=== PATIENT | female | born 1960 | race African-American/Black ===

== ENCOUNTER 2020-07-03 09:56 | Outpatient (REF) | payer OTHER, SELFPAY ==
--- NOTE | 2020-07-03 | MM_ITS ---
EXAMINATION: MM SCREENING DIGITAL BREAST TOMOSYNTHESIS, BILATERAL CLINICAL INFORMATION: Screening. Asymptomatic. The lifetime risk of breast cancer based on the Tyrer-Cuzick Model is 3%. COMPARISON: Mammography: 06/28/2019, 06/22/2018, 05/22/2017 TECHNIQUE: Digital breast tomosynthesis is performed in both the craniocaudal and mediolateral oblique views along with computer-aided detection (CAD). Synthesized 2D images are generated from the tomosynthesis. FINDINGS: The breasts are heterogeneously dense, which may obscure small masses (ACR BI-RADS breast composition Category c). There are no significant masses, abnormal calcifications, or other abnormalities. There are stable nodules bilateral posterior outer breast on CC view likely intramammary nodes, similar to prior studies. MM/MM tomosynthesis screening BI IMPRESSION: No mammographic evidence of malignancy. ASSESSMENT: BI-RADS 2: Benign RECOMMENDATION: Routine annual mammography screening. This patient's information was entered into a reminder system with a target due date for their next mammogram.
== END 2020-07-03 09:57 | disposition home or self-care (01) ==
LOC: HO.MAMMO 09:56
PROVIDERS: PCP Internal Medicine; Visit Provider Internal Medicine
DX: Z12.31 Encounter for screening mammogram for malignant neoplasm of breast (principal)
CPT/HCPCS: 77063; 77067

== ENCOUNTER 2020-08-23 07:56 | Outpatient (REF) | payer OTHER, SELFPAY ==
[2020-08-23 11:43] LABS: Anion Gap 14 (12-20); Blood Urea Nitrogen 19 mg/dL (9-16); Calcium 9.4 mg/dL (8.4-10.2); Carbon Dioxide 28 mmol/L (22-29); Chloride 102 mmol/L (96-108); Cholesterol 190 mg/dL; Estimated Glomerular Filt Rate > 60; Glucose Fasting 90 mg/dL (60-99); HDL Cholesterol 73 mg/dL; LDL Cholesterol Calculated 105 mg/dl; Potassium 3.4 mmol/L (3.3-5.1); Sodium 141 mmol/L (135-145); Triglycerides 64 mg/dL
== END 2020-08-23 07:57 | disposition home or self-care (01) ==
LOC: HO.HMGCLDS 07:56
PROVIDERS: PCP Internal Medicine; Visit Provider Internal Medicine
DX: I10 Essential (primary) hypertension (principal); K21.9 Gastro-esophageal reflux disease without esophagitis; E78.9 Disorder of lipoprotein metabolism, unspecified; Z72.0 Tobacco use
CPT/HCPCS: 36415; 80048; 80061

== ENCOUNTER 2020-10-03 13:43 | Outpatient (REF) | payer OTHER, SELFPAY ==
[2020-10-03 15:18] LABS: Blood Urea Nitrogen 10 mg/dL (9-16); Estimated Glomerular Filt Rate > 60
== END 2020-10-03 13:44 | disposition home or self-care (01) ==
LOC: HO.HMGCLDS 13:43
PROVIDERS: PCP Internal Medicine; Visit Provider Urology
DX: C64.2 Malignant neoplasm of left kidney, except renal pelvis (principal)
CPT/HCPCS: 36415; 82565; 84520

== ENCOUNTER → 2020-11-03 08:51 | Outpatient (BNVA) | payer OTHER, SELFPAY | PROVIDERS: Visit Provider Urology ==

== ENCOUNTER 2021-03-31 08:17 | Outpatient (REF) | payer OTHER, SELFPAY ==
[2021-03-31 11:08] LABS: MANUAL DIFF FLAG NO
[2021-03-31 11:23] LABS: Basophils Percent Auto 0.7 % (0-2); Eosinophils Absolute Auto 0.5 X10*3/uL (0.0-0.4); Eosinophils Percent Auto 11.7 % (0-4); Hematocrit 38.6 % (37-47); Hemoglobin 13.1 g/dl (12.0-16.0); Imm Gran Abs Auto 0.01 X10*3/uL (0.00-0.03); Imm Gran Pct Auto 0.2 % (0.0-0.4); Mean Corpuscular HGB Conc 33.9 g/dl (31.0-35.0); Mean Corpuscular Hemoglobin 32.8 pg (27.0-33.0); Mean Corpuscular Volume 96.5 fL (80-98); Mean Platelet Volume 9.5 fL (9.4-12.3); Monocytes Absolute Auto 0.5 X10*3/uL (0.1-1.2); Monocytes Percent Auto 11.3 % (2-11); Neutrophils Absolute Auto 1.3 X10*3/uL (2.0-8.3); Neutrophils Percent Auto 30.1 % (45-73); Platelet Count 325 X10*3/uL (160-400); Red Cell Distribution Width 12.2 % (11.0-16.0); White Blood Count 4.3 X10*3/uL (4.8-10.8)
[2021-03-31 11:24] LABS: Estimated Average Glucose 114 mg/dL; Hemoglobin A1c % 5.6 %
[2021-03-31 11:49] LABS: Alanine Aminotransferase 22 U/L (0-31); Albumin Level 3.9 g/dL (3.5-5.0); Alkaline Phosphatase 77 U/L (39-117); Anion Gap 10 (12-20); Aspartate Amino Transferase 26 U/L (5-31); Bilirubin Total 0.3 mg/dL (0.0-1.0); Blood Urea Nitrogen 10 mg/dL (9-16); Calcium 9.7 mg/dL (8.4-10.2); Carbon Dioxide 31 mmol/L (22-29); Chloride 100 mmol/L (96-108); Estimated Glomerular Filt Rate > 60; Glucose Random 89 mg/dL (60-115); Potassium 3.4 mmol/L (3.3-5.1); Sodium 138 mmol/L (135-145); Total Protein 6.6 g/dL (6.5-8.0)
== END 2021-03-31 08:18 | disposition home or self-care (01) ==
LOC: HO.HMGCLDS 08:17
PROVIDERS: PCP Internal Medicine; Visit Provider Internal Medicine
DX: E78.9 Disorder of lipoprotein metabolism, unspecified (principal); I10 Essential (primary) hypertension; K21.9 Gastro-esophageal reflux disease without esophagitis; G47.9 Sleep disorder, unspecified; Z72.0 Tobacco use
CPT/HCPCS: 36415; 80053; 83036; 85025

== ENCOUNTER → 2021-05-04 10:29 | Outpatient (BNVA) | payer OTHER, SELFPAY | PROVIDERS: Visit Provider Urology ==

== ENCOUNTER 2021-07-09 08:45 | Outpatient (REF) | payer OTHER, SELFPAY ==
--- NOTE | ~2021-07-09 | MM_ITS ---
EXAMINATION: MM SCREENING DIGITAL BREAST TOMOSYNTHESIS, BILATERAL CLINICAL INFORMATION: Screening. Asymptomatic. The lifetime risk of breast cancer based on the Tyrer-Cuzick Model is 3%. COMPARISON: Mammography: 07/03/2020, 06/28/2019, 06/22/2018, 05/22/2017 TECHNIQUE: Digital breast tomosynthesis is performed in both the craniocaudal and mediolateral oblique views along with computer-aided detection (CAD). Synthesized 2D images are generated from the tomosynthesis. Additional exaggerated left CC view is provided. FINDINGS: The breasts are heterogeneously dense, which may obscure small masses (ACR BI-RADS breast composition Category c). There are no significant masses, abnormal calcifications, or other abnormalities. Breast tissue composition borders on extremely dense. Parenchymal pattern is similar to prior studies. There is a stable nodule likely intramammary node posterior upper outer left breast. Skin contours are smooth. MM/MM tomosynthesis screening BI IMPRESSION: No mammographic evidence of malignancy. ASSESSMENT: BI-RADS 2: Benign RECOMMENDATION: Routine annual mammography screening. This patient's information was entered into a reminder system with a target due date for their next mammogram.
== END 2021-07-09 08:46 | disposition home or self-care (01) ==
LOC: HO.MAMMO 08:45
PROVIDERS: Visit Provider Internal Medicine
DX: Z12.31 Encounter for screening mammogram for malignant neoplasm of breast (principal)
CPT/HCPCS: 77063; 77067

== ENCOUNTER 2021-08-27 09:51 | Outpatient (REF) | payer OTHER, SELFPAY ==
--- NOTE | ~2021-08-27 | US_ITS ---
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 COMPARISON: CT abdomen pelvis 11/18/2016. TECHNIQUE: Routine grayscale imaging of both kidneys was performed. FINDINGS: RIGHT KIDNEY: 10.3 x 3.9 x 6.2 cm (SAG x AP x TRV). The kidney is normal in size, contour, and echogenicity. Renal cortical thickness is normal. No calculi or focal parenchymal lesions. No hydronephrosis. LEFT KIDNEY: 9.1 x 4.0 x 5.7 cm (SAG x AP x TRV). The kidney is normal in size, contour, and echogenicity. Renal cortical thickness is normal. No calculi or focal parenchymal lesions. No hydronephrosis. There is a heterogeneous mass in the lower pole left kidney measuring 2.3 x 1.4 x 1.2 cm. There is a second hypoechoic lesion midpole cortex indenting the pelvicalyceal system. Incidental finding of the right hepatic cyst measuring 2.2 x 1.9 x 1.9 cm. US/US renal BI IMPRESSION: Heterogeneous mass in the lower pole of left kidney is likely post ablation changes for RCC tumor. There is a hypoechoic lesion medially in the [id number] pole with mass effect on the lower pole calyx. This appears to be separate from the lesion in the lower pole. Further evaluation with CT or MRI is recommended. The right kidney is unremarkable.
== END 2021-08-27 09:52 | disposition home or self-care (01) ==
LOC: HO.HMGCX 09:51
PROVIDERS: Visit Provider Urology
DX: C64.9 Malignant neoplasm of unspecified kidney, except renal pelvis (principal)
CPT/HCPCS: 76775

== ENCOUNTER → 2021-09-17 12:35 | Outpatient (BNVA) | payer OTHER, SELFPAY | PROVIDERS: PCP Internal Medicine; Visit Provider Physician Assistant | DX: Z12.11 Encounter for screening for malignant neoplasm of colon (principal); K21.9 Gastro-esophageal reflux disease without esophagitis | CPT/HCPCS: 99202 ==

== ENCOUNTER → 2021-11-08 11:11 | Outpatient (BNVA) | payer OTHER, SELFPAY | PROVIDERS: PCP Internal Medicine; Visit Provider Urology | DX: C64.9 Malignant neoplasm of unspecified kidney, except renal pelvis (principal) | CPT/HCPCS: 99212 ==

== ENCOUNTER 2022-01-14 11:54 | Outpatient (REF) | payer OTHER, SELFPAY ==
[2022-01-14 13:34] LABS: MANUAL DIFF FLAG NO
[2022-01-14 13:42] LABS: Basophils Absolute Auto 0.1 X10*3/uL (0.0-0.2); Basophils Percent Auto 1.2 % (0-2); Eosinophils Absolute Auto 0.4 X10*3/uL (0.0-0.4); Eosinophils Percent Auto 8.5 % (0-4); Hematocrit 36.6 % (37.0-47.0); Hemoglobin 12.7 g/dl (12.0-16.0); Imm Gran Abs Auto 0.02 X10*3/uL (0.00-0.03); Imm Gran Pct Auto 0.4 % (0.0-0.4); Lymphocytes Absolute Auto 2.1 X10*3/uL (1.2-4.9); Lymphocytes Percent Auto 42.6 % (20-40); Mean Corpuscular HGB Conc 34.7 g/dl (31.0-35.0); Mean Corpuscular Hemoglobin 32.9 pg (27.0-33.0); Mean Corpuscular Volume 94.8 fL (80.0-98.0); Mean Platelet Volume 9.4 fL (9.4-12.3); Monocytes Absolute Auto 0.5 X10*3/uL (0.1-1.2); Neutrophils Absolute Auto 1.8 x10*3/uL (2.0-8.3); Neutrophils Percent Auto 36.3 % (45-73); Platelet Count 295 X10*3/uL (160-400); Red Blood Count 3.86 X10*6/uL (4.20-5.50); Red Cell Distribution Width 12.6 % (11.0-16.0); White Blood Count 4.9 X10*3/uL (4.8-10.8)
[2022-01-14 14:47] LABS: Alanine Aminotransferase 26 U/L (0-31); Albumin Level 4.2 g/dL (3.5-5.0); Alkaline Phosphatase 82 U/L (39-117); Anion Gap 14 (12-20); Aspartate Amino Transferase 33 U/L (5-31); Bilirubin Total 0.4 mg/dL (0.0-1.0); Blood Urea Nitrogen 13 mg/dL (9-16); Calcium 9.1 mg/dL (8.4-10.2); Carbon Dioxide 25 mmol/L (22-29); Chloride 97 mmol/L (96-108); Estimated Glomerular Filt Rate > 60; Glucose Random 92 mg/dL (60-115); Sodium 132 mmol/L (135-145); Total Protein 7.4 g/dL (6.5-8.0)
[2022-01-16 00:37] LABS: LDL Cholesterol Direct 90 mg/dL (<100)
== END 2022-01-14 11:55 | disposition home or self-care (01) ==
LOC: HO.HMGCLDS 11:54
PROVIDERS: PCP Internal Medicine; Visit Provider Internal Medicine
DX: E78.9 Disorder of lipoprotein metabolism, unspecified (principal); I10 Essential (primary) hypertension; K21.9 Gastro-esophageal reflux disease without esophagitis
CPT/HCPCS: 36415; 80053; 83721; 85025

== ENCOUNTER 2022-01-16 13:59 | Outpatient (REF) | payer OTHER, SELFPAY ==
--- NOTE | ~2022-01-16 | XR_ITS ---
EXAMINATION: XR ELBOW, RIGHT CLINICAL INFORMATION: Right elbow pain and numbness and hand x1 month. COMPARISON: None TECHNIQUE: AP, lateral, and oblique views of the right elbow. FINDINGS: The bones and soft tissues are normal. No fracture or joint effusion. Alignment is anatomic. Joint spaces are maintained. The anterior fat pad sign is positive suspicious for joint effusion. XR/XR elbow RT 2V IMPRESSION: Anterior fat pad sign is prominent likely joint effusion but no visible fracture or dislocation. No osteophytes or loose bodies.
== END 2022-01-16 14:00 | disposition home or self-care (01) ==
LOC: HO.XRAY 13:59
PROVIDERS: Visit Provider Internal Medicine
DX: M25.521 Pain in right elbow (principal)
CPT/HCPCS: 73070

== ENCOUNTER 2022-01-18 07:46 | Day surgery (SDC) | payer OTHER, SELFPAY ==
--- NOTE | 2022-01-17 10:00 | HO.ANESPROP2 ---
Documented by User: Karen Costello NP 01/17/22 10:03 HPI - Anesthesia Eval Consult details Narrative: 61yo F for Upper Endoscopy and Colonoscopy PMFSH Active Problems Active Problems: All Active Problems (Updated 01/16/22 @ 10:00 by Luca Payan MD) Right hand paresthesia (Acute) Pain in right elbow (Acute) Colon cancer screening (Acute) Difficulty sleeping (Acute) Renal cancer (Acute) Tobacco abuse (Acute) Chronic GERD (Acute) Hypertension, essential (Acute) Lipid disorder (Acute) Past Medical History Medical History Chronic GERD Hypertension, essential Lipid disorder Tobacco abuse Family History Family History Mother Alzheimer's dementia Father Myocardial infarct Surgical History Surgical History H/O foot surgery H/O: hysterectomy History of laparoscopic appendectomy History of right salpingo-oophorectomy History of tonsillectomy History of tubal ligation Hx of colonoscopy Social History Social History Household Members Other:: Housing: House Alcohol intake: never Patient Tobacco Use Status: Current everyday Tobacco user Tobacco use type: Cigarette e-Cigarette/Vaping Use: Never Used Are you DNR?: No Advance Directives: No Advance Directives Information Provided: Yes Current occupational status: employed Cognitive needs: No Hearing needs: No Vision needs: No Meds Allergies Allergy/AdvReac Type Severity Reaction Status Date / Time albuterol [ALBUTEROL] Allergy Unknown HIVES, Verified 01/16/22 09:29 SHORTNESS OF BREATH, rash hydrocodone [From VICODIN] Allergy Unknown HIVES Verified 01/16/22 09:29 Vicodin Allergy Unknown hives, Verified 01/16/22 09:29 hives, SOB fluticasone [Flovent Diskus] AdvReac Unknown shortness Verified 01/16/22 09:29 of breath and hives and agitation Home Medications Medication Instructions Recorded Confirmed Last Taken Type aspirin 81 mg capsule 81 mg 01/18/22 01/17/22 08:00 History Exam Exam Date and Time: January 17, 2022 1000 Pertinent Lab Results Pertinent Lab Results: Laboratory Tests 01/14/22 01/14/22 12:02 12:02 WBC 4.9 Hgb 12.7 Hct 36.6 L Plt Count 295 Sodium 132 L Potassium 4.0 Chloride 97 Carbon Dioxide 25 BUN 13 Creatinine 0.80 PCP aware of low Na, is monitoring Assessment and Plan Assessment Anesthesia Assessment: Chart Reviewed Documented by User: Wendy Zuniga MD 01/18/22 09:18 PMFSH Past Medical History Medical History Chronic GERD Hypertension, essential Lipid disorder Tobacco abuse Family History Family History Mother Alzheimer's dementia Father Myocardial infarct Surgical History Surgical History H/O foot surgery H/O: hysterectomy History of laparoscopic appendectomy History of right salpingo-oophorectomy History of tonsillectomy History of tubal ligation Hx of colonoscopy History of Problems with Anesthesia: No Social History Social History Household Members Other:: Housing: House Alcohol intake: never Patient Tobacco Use Status: Current everyday Tobacco user Tobacco use type: Cigarette e-Cigarette/Vaping Use: Never Used Are you DNR?: No Advance Directives: No Advance Directives Information Provided: Yes Current occupational status: employed Cognitive needs: No Hearing needs: No Vision needs: No Meds Allergies Allergy/AdvReac Type Severity Reaction Status Date / Time albuterol [ALBUTEROL] Allergy Unknown HIVES, Verified 01/16/22 09:29 SHORTNESS OF BREATH, rash hydrocodone [From VICODIN] Allergy Unknown HIVES Verified 01/16/22 09:29 Vicodin Allergy Unknown hives, Verified 01/16/22 09:29 hives, SOB fluticasone [Flovent Diskus] AdvReac Unknown shortness Verified 01/16/22 09:29 of breath and hives and agitation Home Medications Medication Instructions Recorded Confirmed Last Taken Type aspirin 81 mg capsule 81 mg 01/18/22 01/17/22 08:00 History Exam Airway Mallampati Class: II TM Dist: >3cm Neck ROM: Full Loose/Missing/Broken Teeth: No Heart: RRR Lungs: CTA Assessment and Plan Assessment Anesthesia Assessment: Anesthesia Plan Discussed Final Anesthetic Review History of Problems with Anesthesia: No NPO: Yes ASA Class: II Final Preanesthetic Review: Meds/Allgs Chart Reviewed, Consent Obtained/Reviewed and Anes Risks/Benef Reviewed Patient Risk: Low Procedure Risk: Intermediate Anesthetic Plan Anesthetic Plan: MAC: Disposition: Standard PACU
[2022-01-18 07:52] VITALS: BMI 24.4
[2022-01-18 08:04] VITALS: BP 136/73; PULSE 86; RESP 16; TEMP 36.9; O2SAT 98
[2022-01-18] MEDS: Lactated Ringers 1,000 ML 100 ML IVCONT (08:17)
--- NOTE | 2022-01-18 09:41 | MHC.SHP ---
Pre-Procedural Eval Section A Date of Service: 01/18/22 The patient is an INPATIENT: No The History & Physical has been completed within 30 days and I have reviewed it.: No Section B Chief Complaint: screening,reflux Details of Present Illness: Colon cancer screening, GERD Relevant Family History (Specify if Yes): No Relevant Social History: Tobacco Use Present Medications: see Short Stay Collaborative assessment Medical History: Significant History (Chronic GERD Hypertension, essential Lipid disorder Tobacco abuse) History of Previous Operations: Relevant previous surgery/procedure and date(s) (H/O foot surgery H/O: hysterectomy History of laparoscopic appendectomy History of right salpingo-oophorectomy History of tonsillectomy History of tubal ligation Hx of colonoscopy) Allergies: Allergies Allergy/AdvReac Type Severity Reaction Status Date / Time albuterol [ALBUTEROL] Allergy Unknown HIVES, Verified 01/16/22 09:29 SHORTNESS OF BREATH, rash hydrocodone [From VICODIN] Allergy Unknown HIVES Verified 01/16/22 09:29 Vicodin Allergy Unknown hives, Verified 01/16/22 09:29 hives, SOB fluticasone [Flovent Diskus] AdvReac Unknown shortness Verified 01/16/22 09:29 of breath and hives and agitation Review of Systems Sugical H&P ROS: Negative: Constitution, Cardiovascular and Respiratory and Yes, Specify: Gastrointestinal (GERD) Exam Surgical H&P Exam: Normal: Heart, Normal: Lungs, Normal: Extremities and Normal: Abdomen Plan Diagnosis/Plan: Unchanged I have reviewed the history and physical and performed a pertinent physical examination on my patient. No changes have occurred unless specified.
--- NOTE | 2022-01-18 09:49 | PM.OP ---
Brief Operative Note Date of Service: 01/18/22 Pre-op diagnosis: Colon cancer screening, GERD Post-op diagnosis: other (Esophagitis, gastritis, gastric nodule, colon polyps, diverticulosis, hemorrhoids) Procedure: FLEXIBLE TRANSORAL UPPER GASTROINTESTINAL ENDOSCOPY WITH BIOPSIES AND COLONOSCOPY TILL CECUM WITH BIOPSIES UPPER ENDOSCOPY Consent: Indications for the procedure and potential complications of bleeding, perforation, reaction to medications and missed diagnosis were discussed with the patient and informed consent was obtained. Instrument: Olympus GIF H 190 mid size upper endoscope Monitoring: Vital signs and clinical assessment, continuous EKG monitoring, Pulse oximetry, Carbon Dioxide monitoring and blood pressure monitoring were done throughout the procedure. Procedure: The patient was placed in the left lateral decubitis position and pre-procedure medications were administered and a bite block was placed. The endoscope was inserted into the mouth and advanced under direct vision to the third part of duodenum. A careful inspection was made as the upper endoscope was withdrawn including a retroflexed examination of the proximal stomach; Findings and interventions are described below. Findings: Larynx: Normal Esophagus: GE junction at 38 cms. Focal esophagitis at GE junction with a few 0.5 cms erosions. No Jackson's. Stomach: Moderate gastric erythema with nodular appearing mucosa in the body and fundus - biopsied. A 1 cms nodule in the pre-pyloric area with a superficial ulcer - biopsied. Antral biopsies were obtained to check for H Pylori. Grade 2 flap valve on retroflexed examination of the cardia. Duodenum: Normal bulb and descending duodenum Intervention: Biopsies as noted above COLONOSCOPY PROCEDURE NOTE Consent: Indications for the procedure and potential complications of bleeding, perforation, reaction to medications and missed diagnosis were discussed with the patient and informed consent was obtained. Instrument: Olympus PCF H 190 L variable stiffness pediatric colonoscope Monitoring: Vital signs and clinical assessment, intermittent blood pressure monitoring, continuous EKG monitoring, Pulse oximetry and Carbon Dioxide monitoring were done throughout the procedure. Colon withdrawl time was 12 minutes. Procedure: The patient was placed in the left lateral decubitis position and pre-procedure medications were administered. After a digital rectal examination of the ano-rectum, the video colonoscope was inserted into the rectum and advanced through the colon to the cecum. The colonoscope was slowly withdrawn in a retrograde panoramic fashion and the colon mucosa was carefully examined including a retroflexed view of the rectum. Findings and interventions are described below. Procedure Difficulty: : Without difficulty Findings: Terminal Ileum: Not evaluated Cecum: Normal Ascending Colon: Normal Transverse Colon: A 4-5 mm diminutive appearing polyp removed with a cold bx Descending Colon: Normal Sigmoid Colon: Moderate diverticulosis Rectum: Two 4-5 mm diminutive appearing polyps removed with a cold bx. Ano-rectum: Moderate internal hemorrhoids and radames-anal skin tags Colon preparation: Excellent Impression and Post Procedure Diagnosis: Endoscopy Findings: ESOPHAGUS: GE junction at 38 cms. Focal esophagitis at GE junction with a few 0.5 cms erosions. No Jackson's. STOMACH: Moderate gastric erythema with nodular appearing mucosa in the body and fundus - biopsied. A 1 cms nodule in the pre-pyloric area with a superficial ulcer - biopsied. Antral biopsies were obtained to check for H Pylori. Colonoscopy Findings: Three diminutive appearing polyps removed Moderate diverticulosis seen in the sigmoid colon Moderate hemorrhoids on retroflexed exam. Plan: Await pathology results Patient has an appointment on 02/04/22 in the GI Clinic with GRACIE Lyon. Repeat Colonoscopy interval based on path results - in 5 years if polyps are adenomatous and 10 years if polyps are hyperplastic. GERD, colon polyps and diverticulosis handouts were given in the discharge area Surgeon: Jin Baptiste MD Anesthesia: MAC (Dr Zuniga) Was an Educational Psychology Professor used for this Procedure?: Yes Educational Psychology Professor: Nancy Poe Estimated blood loss (mL): 0 Pathology: other ( A. gastric antrum bxs, R/O H. pylori B. gastric nodule bxs C. gastric body bxs D. transverse colon polyp E. rectal polyps (2)) Condition: stable Disposition: PACU
--- NOTE | 2022-01-18 09:49 | W.PM.OPN ---
Operative Note Operative Note Date of Service: 01/18/22 Narrative: Pre-op diagnosis: Colon cancer screening, GERD Post-op diagnosis:?other (Esophagitis, gastritis, gastric nodule, colon polyps, diverticulosis, hemorrhoids) Procedure: FLEXIBLE TRANSORAL UPPER GASTROINTESTINAL ENDOSCOPY WITH BIOPSIES AND COLONOSCOPY TILL CECUM WITH BIOPSIES UPPER ENDOSCOPY Consent:?Indications for the procedure and potential complications of bleeding, perforation, reaction to medications and missed diagnosis were discussed with the patient and informed consent was obtained. Instrument:?Olympus GIF H 190 mid size upper endoscope Monitoring: Vital signs and clinical assessment, continuous EKG monitoring, Pulse oximetry, Carbon Dioxide monitoring and blood pressure monitoring were done throughout the procedure. Procedure:?The patient was placed in the left lateral decubitis position and pre-procedure medications were administered and a bite block was placed. The endoscope was inserted into the mouth and advanced under direct vision to the third part of duodenum. A careful inspection was made as the upper endoscope was withdrawn including a retroflexed examination of the proximal stomach; Findings and interventions are described below. Findings: Larynx:? Normal Esophagus:?GE junction at 38 cms. Focal esophagitis at GE junction with a few 0.5 cms erosions. No Jackson's. Stomach:?Moderate gastric erythema with nodular appearing mucosa in the body and fundus - biopsied.? A 1 cms nodule in the pre-pyloric area with a superficial ulcer - biopsied. Antral biopsies were obtained to check for H Pylori. Grade 2 flap valve on retroflexed examination of the cardia. Duodenum:?Normal bulb and descending duodenum Intervention:?Biopsies as noted above COLONOSCOPY PROCEDURE NOTE Consent:?Indications for the procedure and potential complications of bleeding, perforation, reaction to medications and missed diagnosis were discussed with the patient and informed consent was obtained. Instrument:?Olympus PCF H 190 L variable stiffness pediatric colonoscope Monitoring:?Vital signs and clinical assessment, intermittent blood pressure monitoring, continuous EKG monitoring, Pulse oximetry and Carbon Dioxide monitoring were done throughout the procedure. Colon withdrawl time was 12 minutes. Procedure:?The patient was placed in the left lateral decubitis position and pre-procedure medications were administered. After a digital rectal examination of the ano-rectum, the video colonoscope was inserted into the rectum and advanced through the colon to the cecum. The colonoscope was slowly withdrawn in a retrograde panoramic fashion and the colon mucosa was carefully examined including a retroflexed view of the rectum. Findings and interventions are described below. Procedure Difficulty:?: Without difficulty Findings: Terminal Ileum: Not evaluated Cecum:? Normal Ascending Colon:??Normal Transverse Colon:??A 4-5 mm diminutive appearing polyp removed with a cold bx Descending Colon:? Normal Sigmoid Colon:??Moderate diverticulosis Rectum:??Two 4-5 mm diminutive appearing polyps removed with a cold bx. Ano-rectum:??Moderate internal hemorrhoids and radames-anal skin tags Colon preparation: Excellent ? Impression and Post Procedure Diagnosis: Endoscopy Findings: ESOPHAGUS: GE junction at 38 cms. Focal esophagitis at GE junction with a few 0.5 cms erosions.? No Jackson's. STOMACH: Moderate gastric erythema with nodular appearing mucosa in the body and fundus - biopsied.? A 1 cms nodule in the pre-pyloric area with a superficial ulcer - biopsied. Antral biopsies were obtained to check for H Pylori. Colonoscopy Findings: Three diminutive appearing polyps removed Moderate diverticulosis seen in the sigmoid colon Moderate hemorrhoids on retroflexed exam. Plan: Await pathology results Patient has an appointment on 02/04/22 in the GI Clinic with GRACIE Lyon. Repeat Colonoscopy interval based on path results - in 5 years if polyps are adenomatous and 10 years if polyps are hyperplastic. GERD, colon polyps and diverticulosis handouts were given in the discharge area Surgeon: Jin Baptiste MD Anesthesia:?MAC (Dr Zuniga) Was an Punchboard Filling Machine Operator used for this Procedure?:?Yes Punchboard Filling Machine Operator:?Nancy Poe Estimated blood loss (mL):?0 Pathology:?other ( A. gastric antrum bxs, R/O H. pylori? B. gastric nodule bxs? C. gastric body bxs? D. transverse colon polyp? E. rectal polyps (2)) Condition:?stable Disposition:?PACU
[2022-01-18 10:36] VITALS: BP 112/63; PULSE 85; RESP 20; TEMP 36.2; O2SAT 98
[2022-01-18 10:51] VITALS: BP 129/69; PULSE 81; RESP 20; TEMP 36.4; O2SAT 98
== END 2022-01-18 11:59 | disposition home or self-care (01) ==
PROVIDERS: PCP Internal Medicine; Visit Provider Internal Medicine Gastroenterology
PROC: (CPT 45380; principal; 2022-01-18 09:20)
DX: Z12.11 Encounter for screening for malignant neoplasm of colon (principal); K63.5 Polyp of colon; K62.1 Rectal polyp; K57.30 Diverticulosis of large intestine without perforation or abscess without bleeding; K64.8 Other hemorrhoids; K64.4 Residual hemorrhoidal skin tags; K21.9 Gastro-esophageal reflux disease without esophagitis; K29.50 Unspecified chronic gastritis without bleeding; K20.80 Other esophagitis without bleeding; K31.89 Other diseases of stomach and duodenum; I10 Essential (primary) hypertension; E75.6 Lipid storage disorder, unspecified; Z79.899 Other long term (current) drug therapy; Z88.8 Allergy status to other drugs, medicaments and biological substances; F17.210 Nicotine dependence, cigarettes, uncomplicated
CPT/HCPCS: 45380; 43239; 88305; 88342

== ENCOUNTER → 2022-02-04 09:00 | Outpatient (BNVA) | payer OTHER, SELFPAY | PROVIDERS: PCP Internal Medicine; Visit Provider Physician Assistant | DX: K21.9 Gastro-esophageal reflux disease without esophagitis (principal); K64.4 Residual hemorrhoidal skin tags; K64.8 Other hemorrhoids; F17.210 Nicotine dependence, cigarettes, uncomplicated | CPT/HCPCS: 99212 ==

== ENCOUNTER → 2022-03-04 08:55 | Outpatient (BNVA) | payer OTHER, SELFPAY | PROVIDERS: PCP Internal Medicine; Visit Provider Physician Assistant | DX: G56.21 Lesion of ulnar nerve, right upper limb (principal); M25.521 Pain in right elbow; R20.2 Paresthesia of skin; M25.421 Effusion, right elbow; Z79.899 Other long term (current) drug therapy | CPT/HCPCS: 99202 ==

== ENCOUNTER 2022-03-27 13:57 | Outpatient (REF) | payer OTHER, SELFPAY ==
[2022-03-27 15:03] LABS: Blood Urea Nitrogen 15 mg/dL (9-16); Estimated Glomerular Filt Rate 55
== END 2022-03-27 13:58 | disposition home or self-care (01) ==
LOC: HO.LAB 13:57
PROVIDERS: PCP Internal Medicine; Visit Provider Urology
DX: C64.9 Malignant neoplasm of unspecified kidney, except renal pelvis (principal)
CPT/HCPCS: 36415; 82565; 84520

== ENCOUNTER → 2022-04-01 09:16 | Outpatient (BNVA) | payer OTHER, SELFPAY | PROVIDERS: PCP Internal Medicine; Visit Provider Physician Assistant | DX: K21.9 Gastro-esophageal reflux disease without esophagitis (principal) | CPT/HCPCS: 99212 ==

== ENCOUNTER 2022-04-04 15:05 | Outpatient (REF) | payer OTHER, SELFPAY ==
--- NOTE | ~2022-04-04 | CT_ITS ---
EXAMINATION: CT ABDOMEN WITHOUT AND WITH CONTRAST CLINICAL INFORMATION: Malignant neoplasm of unspecified kidney. COMPARISON: None. TECHNIQUE: Contiguous axial thin section helical images of the abdomen were performed before and after the administration of oral contrast and 85 mL of Omnipaque 350 intravenous contrast. The data set was reformatted in the coronal and sagittal planes and reviewed on an independent workstation. This CT examination was performed using dose optimization techniques as appropriate, variously including the following: *Automated exposure control *Adjustment of mA and/or kV according to patient size (this includes techniques or standardized protocols for targeted exams where dose is matched to indication/reason for exam; i.e. extremities or head) *Use of iterative reconstruction technique DLP: 388 mGy-cm. FINDINGS: LUNG BASES: Minimal atelectatic changes seen lung bases and right middle lobe. The heart size is normal. LIVER, GALLBLADDER, AND BILIARY TREE: The liver is homogeneous in density, normal size and contour. There is a right hepatic lobe 2.2 cm cyst segment 6. No additional lesions seen. There is no intrahepatic or extrahepatic ductal dilatation. PANCREAS: The pancreas is homogeneous in density and normal size. SPLEEN: The spleen is normal size and appears unremarkable. ADRENAL GLANDS AND KIDNEYS: The adrenal glands are symmetrical and normal size. Both kidneys appear normal size, shape and density. No radiopaque renal calculi or hydronephrosis. There is a calcified mass in lower pole left kidney measuring 1.6 cm image 44/3. The lesion is the same size as on previous CT 04/04/2022. The second simple cyst in the [id number]-[id number] pole left kidney is not visualized on this nonenhanced CT. BOWEL LOOPS: Large amount of stool is seen in the colon. The small bowel loops are unremarkable. No obstruction or free air seen. The stomach is nondistended. LYMPH NODES: Normal. VASCULAR: There is atherosclerotic calcification of abdominal aorta. No aneurysmal dilatation. BONES: Unremarkable. CT/CT abdomen wo/w IV con IMPRESSION: Calcified mass lower pole left kidney partially exophytic. No caliectasis or hydronephrosis. Differential diagnoses includes complex cyst, complex mass or old post intervention changes. In 2017 patient had a mass which was probably ablated. Correlate with clinical history. No hydroureteronephrosis seen. Fleischner guidelines were followed.
[2022-04-04] MEDS: iohexoL 350 MG/ML 100 ML INFUS..BTL IV (15:48)
== END 2022-04-04 15:06 | disposition home or self-care (01) ==
LOC: HO.CT 15:05
PROVIDERS: PCP Internal Medicine; Visit Provider Urology
DX: C64.9 Malignant neoplasm of unspecified kidney, except renal pelvis (principal)
CPT/HCPCS: 74170; Q9967

== ENCOUNTER 2022-04-11 09:48 | Outpatient (REF) | payer OTHER, SELFPAY ==
--- NOTE | 2022-04-11 09:50 | EMG_ITS ---
Right median and ulnar motor and sensory studies were performed. Right radial sensory study was performed, and paraspinal muscles were tested with a needle. IMPRESSION: Mild to moderate right median neuropathy across carpal tunnel. MD OSIEL Peoples/KAYLIE / [phone]
== END 2022-04-11 09:49 | disposition home or self-care (01) ==
LOC: HO.NEURO 09:48
PROVIDERS: PCP Internal Medicine; Visit Provider Internal Medicine
DX: R20.2 Paresthesia of skin (principal)
CPT/HCPCS: 95886; 95909

== ENCOUNTER → 2022-04-16 14:47 | Outpatient (BNVA) | payer OTHER, SELFPAY | PROVIDERS: PCP Internal Medicine; Visit Provider Physician Assistant | DX: M25.421 Effusion, right elbow (principal); G56.21 Lesion of ulnar nerve, right upper limb | CPT/HCPCS: 99212 ==

== ENCOUNTER 2022-05-09 07:42 | Day surgery (SDC) | payer OTHER, SELFPAY ==
[2022-05-09 08:09] VITALS: BP 145/69; PULSE 85; RESP 16; TEMP 36.1; O2SAT 100; BMI 24.6
--- NOTE | 2022-05-09 10:35 | MHC.SHP ---
Pre-Procedural Eval Section A Date of Service: 05/09/22 The patient is an INPATIENT: No Changes since office visit: No Cold of Flu in the past 2 weeks, No New Medical Problems, No Changes in Medication and No Patient answered all questions The History & Physical has been completed within 30 days and I have reviewed it.: Yes Section B Chief Complaint: Carpal tunnel syndrome, right upper limb Allergies: Allergies Allergy/AdvReac Type Severity Reaction Status Date / Time albuterol [ALBUTEROL] Allergy Unknown HIVES, Verified 04/22/22 12:48 SHORTNESS OF BREATH, rash hydrocodone [From VICODIN] Allergy Unknown HIVES Verified 04/22/22 12:48 Vicodin Allergy Unknown hives, Verified 04/22/22 12:48 hives, SOB fluticasone [Flovent Diskus] AdvReac Unknown shortness Verified 04/22/22 12:48 of breath and hives and agitation Plan I have reviewed the history and physical and performed a pertinent physical examination on my patient. No changes have occurred unless specified.
--- NOTE | 2022-05-09 10:36 | W.PM.OPN ---
Operative Note Operative Note Date of Service: 05/09/22 Narrative: Preop diagnosis: 1. right Carpal tunnel syndrome Postop diagnosis: same Procedure: 1. right Carpal tunnel release Surgeon: Alejandra Rushing MD Anesthesia: local block using 1% lidocaine with epinephrine Findings: Thickened transverse carpal ligament. EBL: Less than 5 mL Specimens: None Complications: None Disposition: Brought to recovery room in stable condition Plan: Follow-up for 10-14 days for wound check and suture removal Indications: The patient is 61 years old, with right carpal tunnel syndrome that has been unresponsive to nonoperative management. The risks and benefits of operative treatment including but not limited to risk of damage to blood vessels, nerves, tendons, infection, persistent pain, persistent symptoms, or possible need for additional surgery were discussed with the patient and the patient wishes to proceed with surgery. Procedure: Once consent was obtained a local block was performed using a combination of 1% lidocaine with epinephrine. The patient was then brought back to the operating suite and placed on the operative table in supine position. A tourniquet was applied to the proximal aspect of the right upper extremity and the limb was prepped and draped in a standard surgical fashion. Once assured that we had a good block, a 2.0 cm longitudinal incision was made centered over the carpal tunnel. The incision was made through the skin to the subcutaneous tissues using a #15 blade. Dissection was made down to the level of the transverse carpal ligament with care being taken to protect the palmar cutaneous nerve. Once the transverse carpal ligament was clearly visualized, a longitudinal incision was made in the transverse carpal ligament 1st using a #15 blade, then using tenotomy scissors under direct visualization. Care was taken to look for and protect the motor branch of the median nerve when seen in this area. Once satisfied with our carpal tunnel release the wound was copiously irrigated with normal saline and hemostasis was obtained with a brief period of local pressure. The skin edges were reapproximated with some 5.0 nylon suture material and a sterile dressing was applied. The patient appears to have tolerated the procedure well and with no complications. All digits were well vascularized at the conclusion of the case.
== END 2022-05-09 09:30 | disposition home or self-care (01) ==
PROVIDERS: PCP Internal Medicine; Visit Provider Orthopaedic Surgery
PROC: (CPT 64721; principal; 2022-05-09 12:00)
DX: G56.01 Carpal tunnel syndrome, right upper limb (principal); K21.9 Gastro-esophageal reflux disease without esophagitis; I10 Essential (primary) hypertension; E75.6 Lipid storage disorder, unspecified; Z79.82 Long term (current) use of aspirin; Z79.899 Other long term (current) drug therapy; Z88.8 Allergy status to other drugs, medicaments and biological substances; F17.210 Nicotine dependence, cigarettes, uncomplicated
CPT/HCPCS: 64721; J0171

== ENCOUNTER → 2022-05-22 10:47 | Outpatient (BNVA) | payer OTHER, SELFPAY | PROVIDERS: PCP Internal Medicine; Visit Provider Orthopaedic Surgery | DX: Z01.818 Encounter for other preprocedural examination (principal); G56.02 Carpal tunnel syndrome, left upper limb; Z98.890 Other specified postprocedural states | CPT/HCPCS: 99212 ==

== ENCOUNTER 2022-06-06 10:30 | Day surgery (SDC) | payer OTHER, SELFPAY ==
[2022-06-06 12:44] VITALS: BMI 24.6
--- NOTE | 2022-06-06 14:11 | MHC.SHP ---
Pre-Procedural Eval Section A Date of Service: 06/06/22 The patient is an INPATIENT: No Changes since office visit: No Cold of Flu in the past 2 weeks, No New Medical Problems, No Changes in Medication and No Patient answered all questions The History & Physical has been completed within 30 days and I have reviewed it.: Yes Section B Chief Complaint: Carpal tunnel syndrome, left upper limb Allergies: Allergies Allergy/AdvReac Type Severity Reaction Status Date / Time albuterol [ALBUTEROL] Allergy Unknown HIVES, Verified 05/22/22 11:41 SHORTNESS OF BREATH, rash Vicodin Allergy Unknown hives, Verified 05/22/22 11:41 hives, SOB fluticasone [Flovent Diskus] AdvReac Unknown shortness Verified 05/22/22 11:41 of breath and hives and agitation acetaminophen AdvReac Nose Bleed Verified 05/22/22 11:41 ibuprofen AdvReac Swelling Verified 06/06/22 13:22 Plan I have reviewed the history and physical and performed a pertinent physical examination on my patient. No changes have occurred unless specified.
--- NOTE | 2022-06-06 14:12 | W.PM.OPN ---
Operative Note Operative Note Date of Service: 06/06/22 Narrative: Preop diagnosis: 1. left Carpal tunnel syndrome Postop diagnosis: same Procedure: 1. left Carpal tunnel release Surgeon: Alejandra Rushing MD Anesthesia: local block using 1% lidocaine with epinephrine Findings: Thickened transverse carpal ligament. EBL: Less than 5 mL Specimens: None Complications: None Disposition: Brought to recovery room in stable condition Plan: Follow-up for 10-14 days for wound check and suture removal Indications: The patient is 61 years old, with left carpal tunnel syndrome that has been unresponsive to nonoperative management. The risks and benefits of operative treatment including but not limited to risk of damage to blood vessels, nerves, tendons, infection, persistent pain, persistent symptoms, or possible need for additional surgery were discussed with the patient and the patient wishes to proceed with surgery. Procedure: Once consent was obtained a local block was performed using a combination of 1% lidocaine with epinephrine. The patient was then brought back to the operating suite and placed on the operative table in supine position. A tourniquet was applied to the proximal aspect of the left upper extremity and the limb was prepped and draped in a standard surgical fashion. Once assured that we had a good block, a 2.0 cm longitudinal incision was made centered over the carpal tunnel. The incision was made through the skin to the subcutaneous tissues using a #15 blade. Dissection was made down to the level of the transverse carpal ligament with care being taken to protect the palmar cutaneous nerve. Once the transverse carpal ligament was clearly visualized, a longitudinal incision was made in the transverse carpal ligament 1st using a #15 blade, then using tenotomy scissors under direct visualization. Care was taken to look for and protect the motor branch of the median nerve when seen in this area. Once satisfied with our carpal tunnel release the wound was copiously irrigated with normal saline and hemostasis was obtained with a brief period of local pressure. The skin edges were reapproximated with some 5.0 nylon suture material and a sterile dressing was applied. The patient appears to have tolerated the procedure well and with no complications. All digits were well vascularized at the conclusion of the case.
[2022-06-06 14:28] VITALS: BP 153/72; PULSE 78; RESP 15; O2SAT 100
== END 2022-06-06 14:35 | disposition home or self-care (01) ==
PROVIDERS: PCP Internal Medicine; Visit Provider Orthopaedic Surgery
PROC: (CPT 64721; principal; 2022-06-06 12:10)
DX: G56.02 Carpal tunnel syndrome, left upper limb (principal); R20.0 Anesthesia of skin; I10 Essential (primary) hypertension; K21.9 Gastro-esophageal reflux disease without esophagitis; E75.6 Lipid storage disorder, unspecified; Z88.8 Allergy status to other drugs, medicaments and biological substances; F17.210 Nicotine dependence, cigarettes, uncomplicated
CPT/HCPCS: 64721; J0171

== ENCOUNTER 2022-07-16 08:35 | Outpatient (REF) | payer OTHER, SELFPAY ==
--- NOTE | ~2022-07-16 | MM_ITS ---
EXAMINATION: MM SCREENING DIGITAL BREAST TOMOSYNTHESIS, BILATERAL CLINICAL INFORMATION: Screening. Asymptomatic. The lifetime risk of breast cancer based on the Tyrer-Cuzick Model is 2.9%. COMPARISON: Mammography: 07/09/2021 and studies dating back to 12/02/2014. TECHNIQUE: Digital breast tomosynthesis is performed in both the craniocaudal and mediolateral oblique views along with computer-aided detection (CAD). Synthesized 2D images are generated from the tomosynthesis. FINDINGS: The breasts are extremely dense, which lowers the sensitivity of mammography (ACR BI-RADS breast composition Category d). There is a stable parenchymal pattern of the left breast. Within the central lateral aspect of the right breast on craniocaudal view only, there is a 9 x 7 mm density not definitely seen on prior studies for which spot compression views are recommended. If there is persistence of density, then ultrasound could be performed at that time. MM/MM tomosynthesis screening BI IMPRESSION: Question right breast density for further evaluation as described. ASSESSMENT: BI-RADS 0: Incomplete - Need Additional Imaging Evaluation RECOMMENDATION: 1. Additional views of the right breast. 2. Targeted ultrasound if warranted after review of the additional views. 3. Radiology department staff will contact the patient for additional imaging. This patient's information was entered into a reminder system with a target due date for their next mammogram.
== END 2022-07-16 08:36 | disposition home or self-care (01) ==
LOC: HO.MAMMO 08:35
PROVIDERS: PCP Internal Medicine; Visit Provider Internal Medicine
DX: Z12.31 Encounter for screening mammogram for malignant neoplasm of breast (principal)
CPT/HCPCS: 77063; 77067

== ENCOUNTER 2022-07-31 10:36 | Outpatient (REF) | payer OTHER, SELFPAY ==
--- NOTE | ~2022-07-31 | MM_ITS ---
EXAMINATION: MM DIAGNOSTIC DIGITAL BREAST TOMOSYNTHESIS, RIGHT US TARGETED RIGHT BREAST ULTRASOUND CLINICAL INFORMATION: Right breast densities laterally. COMPARISON: Mammography: 07/16/2022 and studies dating back to 01/31/2016. TECHNIQUE: Digital breast tomosynthesis is performed. 2D images are generated from the tomosynthesis. The following views are obtained: Right craniocaudal spot compression view and full-field 90-degree mediolateral view of the right breast performed. FINDINGS: The breasts are extremely dense, which lowers the sensitivity of mammography (ACR BI-RADS breast composition Category d). Additional mammographic films do not demonstrate any suspicious mass; however, there remains a large amount of dense nodular parenchyma within the lateral aspect of the right breast. Targeted right breast ultrasound was then performed with no abnormal cystic or solid mass or region of abnormal distal sound shadowing. No edematous changes seen within the parenchyma. Results are discussed with the patient at time of visit. MM/MM tomosynthesis added views R IMPRESSION: No mammographic or ultrasound evidence of malignancy. ASSESSMENT: BI-RADS 1: Negative. RECOMMENDATION: Routine annual mammography screening. This patient's information was entered into a reminder system with a target due date for their next mammogram.
== END 2022-07-31 10:37 | disposition home or self-care (01) ==
LOC: HO.MAMMO 10:36
PROVIDERS: PCP Internal Medicine; Visit Provider Internal Medicine
DX: R92.2 Inconclusive mammogram (principal)
CPT/HCPCS: 76642; 77061; 77065

== ENCOUNTER 2022-08-06 09:29 | Outpatient (REF) | payer OTHER, SELFPAY ==
[2022-08-06 13:48] LABS: Alanine Aminotransferase 15 U/L (0-31); Alkaline Phosphatase 82 U/L (39-117); Anion Gap 12 (12-20); Aspartate Amino Transferase 23 U/L (5-31); Bilirubin Total 0.4 mg/dL (0.0-1.0); Blood Urea Nitrogen 11 mg/dL (9-16); Calcium 9.5 mg/dL (8.4-10.2); Carbon Dioxide 30 mmol/L (22-29); Chloride 93 mmol/L (96-108); Estimated Glomerular Filt Rate > 60; Glucose Random 104 mg/dL (60-115); Potassium 3.1 mmol/L (3.3-5.1); Sodium 132 mmol/L (135-145); Total Protein 6.9 g/dL (6.5-8.0)
[2022-08-07 09:08] LABS: LDL Cholesterol Direct 89 mg/dL (<100)
== END 2022-08-06 09:30 | disposition home or self-care (01) ==
LOC: HO.HMGCLDS 09:29
PROVIDERS: PCP Internal Medicine; Visit Provider Internal Medicine
DX: C64.9 Malignant neoplasm of unspecified kidney, except renal pelvis (principal); R94.4 Abnormal results of kidney function studies; I10 Essential (primary) hypertension; E78.9 Disorder of lipoprotein metabolism, unspecified; K21.9 Gastro-esophageal reflux disease without esophagitis; G56.21 Lesion of ulnar nerve, right upper limb
CPT/HCPCS: 36415; 80053; 83721

== ENCOUNTER 2022-08-20 15:46 | Outpatient (REF) | payer OTHER, SELFPAY ==
--- NOTE | 2022-08-20 16:58 | PFT_ITS ---
FLOWS: FEV1 114% of predicted at 1.68 L. FVC 117% of predicted at 2.18 L FEV1 to FVC ratio 0.77. Bronchodilator testing was not performed as patient states that there is allergy to albuterol. LUNG VOLUMES: Total lung capacity 124% of predicted at 4.73 L. Residual volume 158% of predicted at 2.44 L. Slow vital capacity 86% of predicted at 2.29 L. Expiratory reserve volume 123% of predicted at 0.84 L. Diffusion capacity is mildly decreased, diffusion capacity corrects to normal after adjustment for alveolar ventilation. IMPRESSION: No obstructive or restrictive ventilatory defect. No bronchodilator testing was performed. Increased total lung capacity suggests hypoventilation. Increased residual volume suggests airtrapping. Decreased diffusion capacity suggests emphysema. MD ANDER Mittal/MODL / [id number]
== END 2022-08-20 15:47 | disposition home or self-care (01) ==
LOC: HO.RESP 15:46
PROVIDERS: PCP Internal Medicine; Visit Provider Internal Medicine
DX: J41.0 Simple chronic bronchitis (principal); R09.89 Other specified symptoms and signs involving the circulatory and respiratory systems; Z72.0 Tobacco use
CPT/HCPCS: 94010; 94727; 94729

== ENCOUNTER 2022-11-27 09:50 | Outpatient (REF) | payer OTHER, SELFPAY ==
[2022-11-27 11:56] LABS: Anion Gap 11 (12-20); Blood Urea Nitrogen 16 mg/dL (9-16); Calcium 9.9 mg/dL (8.4-10.2); Carbon Dioxide 30 mmol/L (22-29); Chloride 99 mmol/L (96-108); Estimated Glomerular Filt Rate > 60; Glucose Random 75 mg/dL (60-115); Potassium 3.6 mmol/L (3.3-5.1); Sodium 136 mmol/L (135-145)
== END 2022-11-27 09:51 | disposition home or self-care (01) ==
LOC: HO.HMGCLDS 09:50
PROVIDERS: Visit Provider Internal Medicine
DX: I10 Essential (primary) hypertension (principal)
CPT/HCPCS: 36415; 80048

== ENCOUNTER 2023-04-07 06:03 | Outpatient (REF) | payer OTHER, SELFPAY ==
[2023-04-07 12:06] LABS: Alanine Aminotransferase 12 U/L (0-31); Alkaline Phosphatase 78 U/L (39-117); Anion Gap 12 (12-20); Aspartate Amino Transferase 20 U/L (5-31); Bilirubin Total 0.4 mg/dL (0.0-1.0); Blood Urea Nitrogen 15 mg/dL (9-16); Carbon Dioxide 26 mmol/L (22-29); Chloride 102 mmol/L (96-108); Estimated Glomerular Filt Rate > 60; Glucose Random 84 mg/dL (60-115); Potassium 3.2 mmol/L (3.3-5.1); Sodium 137 mmol/L (135-145); Total Protein 7.4 g/dL (6.5-8.0)
[2023-04-08 21:53] LABS: LDL Cholesterol Direct 74 mg/dL (<100)
== END 2023-04-07 06:04 | disposition home or self-care (01) ==
LOC: HO.HMGCLDS 06:03
PROVIDERS: PCP Internal Medicine; Visit Provider Internal Medicine
DX: I10 Essential (primary) hypertension (principal); E78.9 Disorder of lipoprotein metabolism, unspecified; K21.9 Gastro-esophageal reflux disease without esophagitis; C64.9 Malignant neoplasm of unspecified kidney, except renal pelvis; R94.4 Abnormal results of kidney function studies; G56.21 Lesion of ulnar nerve, right upper limb
CPT/HCPCS: 36415; 80053; 83721

== ENCOUNTER 2023-04-09 09:46 | Outpatient (AMB) | payer OTHER, SELFPAY ==
[2023-04-09 09:52] VITALS: BP 140/72; PULSE 95; O2SAT 97
--- NOTE | 2023-04-09 09:52 | MHC.PC.OV ---
Vital Signs 04/09/23 09:52 Weight 126 lb 8 oz BP 140/72 H Blood Pressure Location Rt brachial Position Sitting Pulse 95 Pulse Source Pulse Oximeter Pulse Oximetry (%) 97 Oxygen Delivery Method Room Air Intake Visit Reasons: 4 month follow up Allergies albuterol [ALBUTEROL] Allergy (Unknown, Verified 04/09/23 09:53) HIVES, SHORTNESS OF BREATH, rash hydrocodone [From Vicodin] Allergy (Unknown, Verified 04/09/23 09:53) Hives, Shortness of Breath fluticasone [Flovent Diskus] Adverse Reaction (Unknown, Verified 04/09/23 09:53) shortness of breath and hives and agitation acetaminophen Adverse Reaction (Verified 04/09/23 09:53) Nose Bleed ibuprofen Adverse Reaction (Verified 04/09/23 09:53) Swelling Medication List - Last Reconciled 04/09/23 by Luca Payan MD aspirin 81 mg clotrimazole-betamethasone 1-0.05 % 1 appl topical BID 30 days famotidine 40 mg PO BEDTIME hydrochlorothiazide 25 mg PO QAM 90 days nicotine (Nicoderm CQ) 1 patch transdermal Q24H 30 days simvastatin 80 mg PO BEDTIME Tobacco use date assessed: 08/06/22 Dental Screening Dental Screen Date: 04/09/23 Did you have a dental visit in the last 12 months?: Yes Did you have a dental problem in the last 6 months where you did not have access to dental care?: No Was dental information given to patient?: Patient has dentist HPI 4 month follow up HPI Details ?Patient is 62-year-old female came in today for her regular follow-up appointment Patient is trying to stop smoking she is now down to 3 cigarettes a day and is on Nicoderm 7 mg patch Pulmonary function test that showed Decreased diffusion capacity suggests emphysema. No affect of bronchodilators Blood pressure is controlled patient is on hydrochlorothiazide 25 mg tolerating medication Recent labs done showed potassium of 3.2, she continued to drink beer off and on, explained to her the correlation between potassium and had cold beverages and what low-potassium can due to cardiac function. I would recommend that she stops drinking beer altogether. She also drink 1 bottle of black soda every day which is also harmful to her. Patient already have chronic GERD and is taking famotidine Lipid disorder: Continue simvastatin 80 mg daily Patient will return in 4 months for follow-up appointment and Labs needs to be repeated in 3 month COUNT INCLUDES THE [facility] Medical History Chronic GERD Hypertension, essential Lipid disorder Tobacco abuse Surgical History H/O foot surgery H/O: hysterectomy History of esophagogastroduodenoscopy (EGD) History of laparoscopic appendectomy History of right salpingo-oophorectomy History of tonsillectomy History of tubal ligation Hx of colonoscopy Family History Mother Alzheimer's dementia Father Myocardial infarct Social History Household Members Other:: Housing: House Alcohol intake: never Patient Tobacco Use Status: Current everyday Tobacco user Tobacco use type: Cigarette e-Cigarette/Vaping Use: Never Used service: No Current occupational status: employed 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 Cognitive needs: No Hearing needs: No Vision needs: No Questionnaire PHQ-9 Over the last 2 weeks, how often have you been bothered by any of the following problems? 1. Little interest or pleasure in doing things: not at all 2. Feeling down, depressed, or hopeless: not at all 3. Trouble falling or staying asleep, or sleeping too much: not at all 4. Feeling tired or having little energy: not at all 5. Poor appetite or overeating: not at all 6. Feeling bad about yourself - or that you are a failure or have let yourself or your family down: not at all 7. Trouble concentrating on things, such as reading the newspaper or watching television: not at all 8. Moving or speaking so slowly that other people could have noticed. Or the opposite - being so fidgety or restless that you have been moving around a lot more than usual: not at all 9. Thoughts that you would be better off or of hurting yourself in some way: not at all Total score: 0 Depression Screening Interpretation: Negative 04789 - PHQ-9 Billing: Yes Source: Developed by Cyn Chaudhry Rafat, Giovanni Diaz and colleagues, with an educational susan from [employer]. Thrive Questionnaire Date Thrive assessed: 04/09/23 What is your living situation today?: I have a steady place to live Within the past 12 months, did the food you bought not last and you didn't have the money to get more?: Never true Within the past 12 months, did you worry whether your food would run out before you got money to buy more?: Never true Do you have trouble paying for medicines?: No Do you have trouble getting transportation to medical appointments?: No Do you have trouble paying your heating and electricity bill?: No Do you have trouble taking care of your child, family member or friend?: No Do you have trouble with day-to-day activities such as bathing, preparing meals, shopping, managing finances, etc.?: No Are you currently unemployed and looking for a job?: No Are you interested in more education?: No AUDIT C Alcohol Use Questionnaire (AUDIT-C) 1. How often do you have a drink containing alcohol?: Monthly or less 2. How many drinks containing alcohol do you have on a typical day when you are drinking?: 1 or 2 3. How often do you have six or more drinks on one occasion?: Never Total Score: 1 Score Reviewed/Action Taken: Yes RAUDEL-7 AMB Questionnaire RAUDEL-7 Date RAUDEL - 7 assessed: 04/09/23 Feeling nervous, anxious, or on edge: 0 = Not at all Not being able to stop or control worryin = Not at all Worrying too much about different things: 0 = Not at all Trouble relaxin = Not at all Being so restless that it is hard to sit still: 0 = Not at all Becoming easily annoyed or irritable: 0 = Not at all Feeling afraid as if something awful might happen: 0 = Not at all Total RAUDEL-7 score (0-4 normal; 5-9 mild; 10-14 moderate; 15-21 severe): 0 Source: Developed by Cyn Chaudhry, Giovanni Diaz and colleagues, with an educational susan from [employer]. RAUDEL-7 Assessment Billing RAUDEL-7 Assessment Tool: RAUDEL-7 Assessment 37566 Review of Systems Const Denies chills and Denies fever(s) ENT Denies epistaxis and Denies nasal discharge Card Denies chest pain Resp Denies hemoptysis GI Denies diarrhea and Denies nausea Skin/Breast Denies rash Neuro Reports no additional complaints Psych Reports no additional complaints Endo Reports no additional complaints Physical exam (Primary Care) Vital Signs: Last Vital Signs Pulse 95 04/09/23 09:52 BP 140/72 H 04/09/23 09:52 Pulse Ox 97 04/09/23 09:52 Oxygen Delivery Method Room Air 04/09/23 09:52 Tobacco/Smoking Status: Tobacco use Status Tobacco use date assessed 08/06/22 04/09/23 09:55 Patient Tobacco Use Status Current everyday Tobacco 04/09/23 09:55 Tobacco use type Cigarette 04/09/23 09:55 e-Cigarette/Vaping Use Never Used 04/09/23 09:55 Are you ready to quit: Yes Tobacco cessation counseling provided: Yes Relapse Prevention: weight gain after smoking is common CPT code: 55305 - 4-10 Minutes PHQ-9: PHQ-9 Score PHQ-9: Total score 0 04/09/23 10:11 Depression Screening Interpretation: Negative Thrive Assessment: Date of Thrive Assessment Date Thrive assessed 04/09/23 04/09/23 10:11 Const General: cooperative, comfortable and no acute distress Orientation/consciousness: patient oriented x3 HENMT Head: Yes normocephalic Eyes General: appearance normal, both eyes and all related structures Neck Neck: Yes supple Resp Effort & Inspection: normal respiratory effort, no cough and no stridor Cardio Rhythm: regular rhythm Heart sounds: S1 normal heart sound present and S2 normal heart sound present Skin General skin exam: turgor normal Neuro General: patient oriented x3, tone normal and moves all extremities Extrem Right lower extremity: no edema Left lower extremity: no edema Assessment and Plan Assessment & Plan (1) Nicotine dependence: Code(s): F17.200 - Nicotine dependence, unspecified, uncomplicated Qualifiers: Nicotine product type: cigarettes Substance use status: uncomplicated Qualified Code(s): F17.210 - Nicotine dependence, cigarettes, uncomplicated (2) Lipid disorder: Code(s): E78.9 - Disorder of lipoprotein metabolism, unspecified (3) Hypertension, essential: Code(s): I10 - Essential (primary) hypertension (4) Chronic GERD: Comment: omeprazole- not working Continue famotidine 40 at HS avoid culprits Code(s): K21.9 - Gastro-esophageal reflux disease without esophagitis (5) Decreased GFR: Code(s): R94.4 - Abnormal results of kidney function studies (6) Low blood potassium: Code(s): E87.6 - Hypokalemia (7) Smokers' cough: Code(s): J41.0 - Simple chronic bronchitis Plan ?Patient is 62-year-old female came in today for her regular follow-up appointment Patient is trying to stop smoking she is now down to 3 cigarettes a day and is on Nicoderm 7 mg patch Pulmonary function test that showed Decreased diffusion capacity suggests emphysema. No affect of bronchodilators Blood pressure is controlled patient is on hydrochlorothiazide 25 mg tolerating medication Recent labs done showed potassium of 3.2, she continued to drink beer off and on, explained to her the correlation between potassium and had cold beverages and what low-potassium can due to cardiac function. I would recommend that she stops drinking beer altogether. She also drink 1 bottle of black soda every day which is also harmful to her. Patient already have chronic GERD and is taking famotidine Lipid disorder: Continue simvastatin 80 mg daily Patient will return in 4 months for follow-up appointment and Labs needs to be repeated in 3 month Orders: Orders Comprehensive Met. Panel 3 Months E78.9 - Disorder of lipoprotein metabolism, unspecified, E87.6 - Hypokalemia, I10 - Essential (primary) hypertension, K21.9 - Gastro-esophageal reflux disease without esophagitis, R94.4 - Abnormal results of kidney function studies Complete Blood Count Auto Diff 3 Months E78.9 - Disorder of lipoprotein metabolism, unspecified, E87.6 - Hypokalemia, I10 - Essential (primary) hypertension, K21.9 - Gastro-esophageal reflux disease without esophagitis, R94.4 - Abnormal results of kidney function studies Medications: Changed From aspirin 81 mg To aspirin 81 mg PO ONCE 90 caps 1RF Refilled hydrochlorothiazide 25 mg PO QAM 90 tabs 1RF 90 days simvastatin 80 mg PO BEDTIME 90 tabs 0RF famotidine 40 mg PO BEDTIME 90 tabs 1RF clotrimazole-betamethasone 1-0.05 % 1 appl topical BID 60 grams 1RF 30 days Coding Level of Care Code Est Pt Level 4 (65850) Diagnoses Cigarette nicotine dependence without complication F17.210 Nicotine product type: cigarettes Substance use status: uncomplicated Lipid disorder E78.9 Hypertension, essential I10 Chronic GERD K21.9 Decreased GFR R94.4 Low blood potassium E87.6 Smokers' cough J41.0 Additional Codes RAUDEL-7 Assessment Billing - RAUDEL-7 Assessment Tool: RAUDEL-7 Assessment 16297 ([id number]) Vital Signs *Quality* - CPT code: 57106 - 4-10 Minutes ([id number])
== END 2023-04-09 10:37 | disposition home or self-care (01) ==
PROVIDERS: PCP Internal Medicine; Visit Provider Internal Medicine
DX: I10 Essential (primary) hypertension (principal); F17.210 Nicotine dependence, cigarettes, uncomplicated; K21.9 Gastro-esophageal reflux disease without esophagitis; J41.0 Simple chronic bronchitis; E78.9 Disorder of lipoprotein metabolism, unspecified; R94.4 Abnormal results of kidney function studies; E87.6 Hypokalemia
CPT/HCPCS: 99214

== ENCOUNTER 2023-04-23 12:29 | Outpatient (AMB) | payer OTHER, SELFPAY ==
--- NOTE | 2023-04-23 12:31 | MHC.PC.OV ---
Vital Signs 04/23/23 12:33 Height 5 ft Weight 126 lb 8 oz BMI 24.7 BP 128/74 Blood Pressure Location Rt brachial Position Sitting Pulse 72 Pulse Source Pulse Oximeter Pulse Oximetry (%) 98 Oxygen Delivery Method Room Air Intake Visit Reasons: Hip clicking Allergies albuterol [ALBUTEROL] Allergy (Unknown, Verified 04/23/23 12:33) HIVES, SHORTNESS OF BREATH, rash hydrocodone [From Vicodin] Allergy (Unknown, Verified 04/23/23 12:33) Hives, Shortness of Breath fluticasone [Flovent Diskus] Adverse Reaction (Unknown, Verified 04/23/23 12:33) shortness of breath and hives and agitation acetaminophen Adverse Reaction (Verified 04/23/23 12:33) Nose Bleed ibuprofen Adverse Reaction (Verified 04/23/23 12:33) Swelling Medication List - Last Reconciled 04/23/23 by Luca Payan MD aspirin 81 mg PO DAILY clotrimazole-betamethasone 1-0.05 % 1 appl topical BID 30 days famotidine 40 mg PO BEDTIME hydrochlorothiazide 25 mg PO QAM 90 days nicotine (Nicoderm CQ) 1 patch transdermal Q24H 30 days simvastatin 80 mg PO BEDTIME Tobacco use date assessed: 08/06/22 HPI Hip clicking HPI Details Patient is a 62-year-old female Came in today to be evaluated for pain left hip area Which has been happening for the past 10 days. 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 Patient says that the pain is not getting better and it is difficult for her to walk and it is getting difficult to sleep at night as well Pain is radiating down to her knee from side of her left leg. On exam patient has a limited range of motion in left hip, straight leg sign is negative There is no lumbar pain with percussion I have ordered x-ray of her hip and lumbar area Orthopedic referral is placed I have also sent 14 tablets of oxycodone that patient has taken in the past and did well she may take 1 at night as needed. Controlled nature of medication was discussed, it is important to notify me of change of pharmacy, or if traveling. Do not share the medication with anybody, keep it safe away from the hands of small children, and only take it as prescribed. This medication have a tendency to be abused, habit-forming, and it can cause severe constipation along with other allergic reactions. Long-term use of narcotic medications have shown to increase sensitivity to pain. [facility], LAT[facility] Medical History Tobacco abuse Chronic GERD Hypertension, essential Lipid disorder Surgical History History of esophagogastroduodenoscopy (EGD) Hx of colonoscopy H/O foot surgery History of right salpingo-oophorectomy History of tubal ligation History of tonsillectomy History of laparoscopic appendectomy H/O: hysterectomy Family History Mother Alzheimer's dementia Father Myocardial infarct Social History Household Members Other:: Housing: House Alcohol intake: never Patient Tobacco Use Status: Current everyday Tobacco user Tobacco use type: Cigarette e-Cigarette/Vaping Use: Never Used service: No Current occupational status: employed 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 Cognitive needs: No Hearing needs: No Vision needs: No Questionnaire PHQ-9 Over the last 2 weeks, how often have you been bothered by any of the following problems? 1. Little interest or pleasure in doing things: not at all 2. Feeling down, depressed, or hopeless: not at all 3. Trouble falling or staying asleep, or sleeping too much: not at all 4. Feeling tired or having little energy: not at all 5. Poor appetite or overeating: not at all 6. Feeling bad about yourself - or that you are a failure or have let yourself or your family down: not at all 7. Trouble concentrating on things, such as reading the newspaper or watching television: not at all 8. Moving or speaking so slowly that other people could have noticed. Or the opposite - being so fidgety or restless that you have been moving around a lot more than usual: not at all 9. Thoughts that you would be better off or of hurting yourself in some way: not at all Total score: 0 Depression Screening Interpretation: Negative Depression Screening Done: Yes 97707 - PHQ-9 Billing: Yes Source: Developed by Drs. Venkat Sparrow, Cyn Douglass, Giovanni Diaz and colleagues, with an educational susan from [employer]. Thrive Questionnaire Date Thrive assessed: 04/09/23 RAUDEL-7 AMB Questionnaire RAUDEL-7 Date RAUDEL - 7 assessed: 04/09/23 Source: Developed by Drs. Venkat Sparrow, Cyn Douglass, Giovanni Diaz and colleagues, with an educational susan from [employer]. Physical exam (Primary Care) Vital Signs: Last Vital Signs Pulse 72 04/23/23 12:33 BP 128/74 04/23/23 12:33 Pulse Ox 98 04/23/23 12:33 Oxygen Delivery Method Room Air 04/23/23 12:33 BMI result Body Mass Index 24.7 Tobacco/Smoking Status: Tobacco use Status Tobacco use date assessed 08/06/22 04/23/23 12:31 Patient Tobacco Use Status Current everyday Tobacco 04/23/23 12:31 Tobacco use type Cigarette 04/23/23 12:31 e-Cigarette/Vaping Use Never Used 04/23/23 12:31 PHQ-9: PHQ-9 Score PHQ-9: Total score 0 04/23/23 12:55 Depression Screening Interpretation: Negative Thrive Assessment: Date of Thrive Assessment Date Thrive assessed 04/09/23 04/23/23 12:31 Assessment and Plan Assessment & Plan (1) Acute pain of left hip: Code(s): M25.552 - Pain in left hip (2) Lumbar radiculopathy: Code(s): M54.16 - Radiculopathy, lumbar region (3) Acute pain of left thigh: Code(s): M79.652 - Pain in left thigh (4) Pain management: Code(s): R52 - Pain, unspecified Plan Patient is a 62-year-old female Came in today to be evaluated for pain left hip area Which has been happening for the past 10 days. 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 Patient says that the pain is not getting better and it is difficult for her to walk and it is getting difficult to sleep at night as well Pain is radiating down to her knee from side of her left leg. On exam patient has a limited range of motion in left hip, straight leg sign is negative There is no lumbar pain with percussion I have ordered x-ray of her hip and lumbar area Orthopedic referral is placed I have also sent 14 tablets of oxycodone that patient has taken in the past and did well she may take 1 at night as needed. Controlled nature of medication was discussed, it is important to notify me of change of pharmacy, or if traveling. Do not share the medication with anybody, keep it safe away from the hands of small children, and only take it as prescribed. This medication have a tendency to be abused, habit-forming, and it can cause severe constipation along with other allergic reactions. Long-term use of narcotic medications have shown to increase sensitivity to pain. Orders: Orders XR lumbar spine 2-3V Today M54.16 - Radiculopathy, lumbar region XR hip LT min 2V Today M25.552 - Pain in left hip Referrals Orthopedics Referral M25.552 - Pain in left hip Medications: New oxycodone Partial Fill upon patient request. 5 mg PO BID PRN 14 tabs 0RF pain 7 days Coding Level of Care Code Est Pt Level 4 (50289) Diagnoses Acute pain of left hip M25.552 Lumbar radiculopathy M54.16 Acute pain of left thigh M79.652 Pain management R52
[2023-04-23 12:33] VITALS: BP 128/74; PULSE 72; O2SAT 98; BMI 24.7
== END 2023-04-23 14:08 | disposition home or self-care (01) ==
PROVIDERS: PCP Internal Medicine; Visit Provider Internal Medicine
DX: M25.552 Pain in left hip (principal); M54.16 Radiculopathy, lumbar region; M79.652 Pain in left thigh
CPT/HCPCS: 99214

== ENCOUNTER 2023-04-23 12:50 | Outpatient (REF) | payer OTHER, SELFPAY ==
--- NOTE | ~2023-04-23 | XR_ITS ---
EXAMINATION: LUMBAR SPINE, LEFT HIP CLINICAL INFORMATION: Radiculopathy lumbar region and left hip pain COMPARISON: CT abdomen pelvis 04/04/2022 TECHNIQUE: 3 views lumbosacral spine, 2 views left hip FINDINGS: There are mild degenerative changes seen in the spine with some minimal narrowing at L4-L5 5. No other abnormality is seen. Left hip appears unremarkable. XR/XR hip LT min 2V IMPRESSION: Mild degenerative changes in the spine at L4-L5. No acute finding.
--- NOTE | ~2023-04-23 | XR_ITS ---
EXAMINATION: LUMBAR SPINE, LEFT HIP CLINICAL INFORMATION: Radiculopathy lumbar region and left hip pain COMPARISON: CT abdomen pelvis 04/04/2022 TECHNIQUE: 3 views lumbosacral spine, 2 views left hip FINDINGS: There are mild degenerative changes seen in the spine with some minimal narrowing at L4-L5 5. No other abnormality is seen. Left hip appears unremarkable. XR/XR lumbar spine 2-3V IMPRESSION: Mild degenerative changes in the spine at L4-L5. No acute finding.
== END 2023-04-23 12:51 | disposition home or self-care (01) ==
LOC: HO.HMGCX 12:50
PROVIDERS: PCP Internal Medicine; Visit Provider Internal Medicine
DX: M25.552 Pain in left hip (principal); M54.16 Radiculopathy, lumbar region
CPT/HCPCS: 72100; 73502

== ENCOUNTER 2023-06-06 11:12 | Outpatient (REF) | payer OTHER, SELFPAY ==
--- NOTE | ~2023-06-06 | XR_ITS ---
EXAMINATION: XR PELVIS CLINICAL INFORMATION: Hip pain. COMPARISON: Radiographs dated 04/23/2023. TECHNIQUE: AP view of the pelvis. FINDINGS: There is bony demineralization. The bilateral acetabular joint spaces are symmetric and well-maintained. There is slight peripheral osteophyte formation of the bilateral acetabular roofs. The femoral heads are smooth. No fracture or dislocation is seen. Multiple pelvic phleboliths are noted. There are iliofemoral atherosclerotic calcifications. XR/XR pelvis 1-2V IMPRESSION: Minimal degenerative change is seen of the bilateral hips. There is no fracture or dislocation noted.
== END 2023-06-06 11:13 | disposition home or self-care (01) ==
LOC: HO.HOSX 11:12
PROVIDERS: Visit Provider Physician Assistant
DX: M70.60 Trochanteric bursitis, unspecified hip (principal)
CPT/HCPCS: 72170; 99212

== ENCOUNTER 2023-06-06 12:36 | Outpatient (AMB) | payer OTHER, SELFPAY ==
--- NOTE | 2023-06-06 12:50 | MHC.OFFVIS ---
Intake Intake Visit Reasons: New Prob- Left hip pain Intake Note: Shagufta is a 62 year old female who presents today for a evaluation of her right hip pain. Patient reports off and on pain for 3 years. She states that she is unable to sleep on her left side and she gets a pinching sensation. Pain is near the glutes per patient. Hip tends to lock when being over used per patient. No previous treatment. Patient informed me she doesn't want the injections. Allergies albuterol [ALBUTEROL] Allergy (Unknown, Verified 06/06/23 12:54) HIVES, SHORTNESS OF BREATH, rash hydrocodone [From Vicodin] Allergy (Unknown, Verified 06/06/23 12:54) Hives, Shortness of Breath fluticasone [Flovent Diskus] Adverse Reaction (Unknown, Verified 06/06/23 12:54) shortness of breath and hives and agitation acetaminophen Adverse Reaction (Verified 06/06/23 12:54) Nose Bleed ibuprofen Adverse Reaction (Verified 06/06/23 12:54) Swelling HPI New Prob- Left hip pain HPI Details 62-year-old female who presents in the office today for an evaluation of left hip pain. The patient reports intermittent pain for 3 years. She claims she is unable to sleep on her left side due to a pinching sensation. She reports the pain is near the glutes. She states she has locking in the left hip with over use. She denies any prior treatment. However, she states she is not interested in an injection. [facility] Medical History Tobacco abuse Chronic GERD Hypertension, essential Lipid disorder Surgical History History of esophagogastroduodenoscopy (EGD) Hx of colonoscopy H/O foot surgery History of right salpingo-oophorectomy History of tubal ligation History of tonsillectomy History of laparoscopic appendectomy H/O: hysterectomy Family History Mother Alzheimer's dementia Father Myocardial infarct Social History Household Members Other:: Housing: House Alcohol intake: never Patient Tobacco Use Status: Current everyday Tobacco user Tobacco use type: Cigarette e-Cigarette/Vaping Use: Never Used service: No Current occupational status: employed 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 Cognitive needs: No Hearing needs: No Vision needs: No Review of Systems Const All systems reviewed & are unremarkable except as noted in HPI and below Physical Exam Const General: cooperative, healthy appearing and no acute distress Resp Effort & Inspection: normal respiratory effort and able to speak in complete sentences Cardio Rate: regular rate Peripheral pulses: Peripheral pulses 2+ throughout GI Palpation (GI): Soft to palpation Skin Lesions: no lesions Rashes: no rashes Extrem Other: Left hip: Normal to inspection. No ecchymosis, erythema, or edema. Full hip ROM in all planes. Tenderness to palpation over the greater trochanteric bursa. 5/5 strength with resisted hip flexion, knee extension, abduction, and abduction. Able to perform straight leg raise. NVI. Assessment & Plan Assessment & Plan (1) Greater trochanteric bursitis of left hip: Code(s): M70.62 - Trochanteric bursitis, left hip Plan Ms. Glasgow is a 62-year-old female who presents in the office today for an evaluation of left hip pain. The patient reports intermittent pain for 3 years. She claims she is unable to sleep on her left side due to a pinching sensation. She reports the pain is near the glutes. She states she has locking in the left hip with over use. She denies any prior treatment. However, she states she is not interested in an injection. I discussed the role of cortisone injections with the patient while in the office today. She would like to defer at this time. 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 She would also like to defer physical therapy at this time. Follow up will be PRN, or sooner if needed. X-rays of the pelvic which were obtained while in the office today and were reviewed by me, Catalina Ibarra PA-C, revealed no acute fracture or dislocation. Minimal arthritic changes noted. Orders: Orders XR pelvis 1-2V Today M25.559 - Pain in unspecified hip Patient Instructions: Scribed for Catalina Ibarra PA-C by Nancy Bernal behavioral medical director, on 06/06/2023 at 12:40 pm, EST. Coding Level of Care Code Est Pt Level 3 (10511) Diagnoses Greater trochanteric bursitis of left hip M70.62
== END 2023-06-06 13:03 | disposition home or self-care (01) ==
PROVIDERS: PCP Internal Medicine; Visit Provider Physician Assistant
DX: M70.62 Trochanteric bursitis, left hip (principal)
CPT/HCPCS: 99213

== ENCOUNTER 2023-06-16 09:51 | Outpatient (REF) | payer OTHER, SELFPAY ==
--- NOTE | ~2023-06-16 | US_ITS ---
EXAMINATION: US RETROPERITONEAL LIMITED (RENAL ONLY) CLINICAL INFORMATION: Malignant neoplasm of unspecified kidney, renal cancer. COMPARISON: CT abdomen without and with contrast 04/04/2022. Ultrasound retroperitoneal limited 08/27/2021. TECHNIQUE: Real-time imaging of the kidneys. Limited visualization due to bowel gas. FINDINGS: RIGHT KIDNEY: 9.5 x 3.8 x 6.0 cm (SAG x AP x TRV). No hydronephrosis. No renal calculi. Renal cortical thickness is normal. Limited visualization. LEFT KIDNEY: 8.8 x 5.2 x 5.8 cm (SAG x AP x TRV). No hydronephrosis. No renal calculi. Renal cortical thickness is normal. Limited visualization. Left renal khu-yh-tjfhn pole lateral calcified area measuring 1.0 x 0.3 x 1.0 cm difficult to characterize due to severely limited visualization. Left renal lower pole 1.5 x 1.2 x 1.3 cm complicated cyst with septations and possible calcifications is difficult to fully characterize due to bowel gas and measured 1.4 x 1.2 x 1.3 cm on renal ultrasound of 08/27/2021. US/US renal BI IMPRESSION: 1. No hydronephrosis. No renal calculi. 2. Left renal 1.5 cm complicated cyst is stable dating back to 08/27/2021. 3. Left renal mky-pw-khzzl pole calcified area difficult to characterize due to severely limited visualization. 4. The left renal lower pole 2.3 cm heterogeneous mass identified on ultrasound of 08/27/2021 is not well visualized. 5. CT scan employing renal mass protocol recommended for further evaluation.
== END 2023-06-16 09:52 | disposition home or self-care (01) ==
LOC: HO.HMGCX 09:51
PROVIDERS: PCP Internal Medicine; Visit Provider Urology
DX: C64.9 Malignant neoplasm of unspecified kidney, except renal pelvis (principal)
CPT/HCPCS: 76775

== ENCOUNTER → 2023-06-20 14:05 | Outpatient (BNVA) | payer OTHER, SELFPAY | PROVIDERS: Visit Provider Urology | DX: C64.9 Malignant neoplasm of unspecified kidney, except renal pelvis (principal) | CPT/HCPCS: 99212 ==

== ENCOUNTER 2023-07-18 08:20 | Outpatient (REF) | payer OTHER, SELFPAY ==
--- NOTE | ~2023-07-18 | MM_ITS ---
EXAMINATION: MM SCREENING DIGITAL BREAST TOMOSYNTHESIS, BILATERAL CLINICAL INFORMATION: Screening. Asymptomatic. COMPARISON: Mammography: 06/16/2022, and studies dating back to 2014. TECHNIQUE: Digital breast tomosynthesis is performed in both the craniocaudal and mediolateral oblique views along with computer-aided detection (CAD). Synthesized 2D images are generated from the tomosynthesis. Additional right MLO view was obtained. FINDINGS: The breasts are heterogeneously dense, which may obscure small masses (ACR BI-RADS breast composition Category c). There are no suspicious masses, suspicious grouped calcifications, or areas of architectural distortion in either breast. The parenchymal pattern is stable from prior exams. MM/MM tomosynthesis screening BI IMPRESSION: No mammographic evidence of malignancy. ASSESSMENT: BI-RADS BI-RADS 1 - Negative RECOMMENDATION: Routine annual mammography screening. 1 year F/U This examination should not preclude the clinical evaluation of a suspicious palpable abnormality. This patient's information was entered into a reminder system with a target due date for their next mammogram.
== END 2023-07-18 08:21 | disposition home or self-care (01) ==
LOC: HO.MAMMO 08:20
PROVIDERS: PCP Internal Medicine; Visit Provider Internal Medicine
DX: Z12.31 Encounter for screening mammogram for malignant neoplasm of breast (principal)
CPT/HCPCS: 77063; 77067

== ENCOUNTER → 2023-07-18 08:45 | Outpatient (BNV) | payer OTHER, SELFPAY | PROVIDERS: PCP Internal Medicine; Visit Provider Radiology Diagnostic Radiology | DX: Z12.31 Encounter for screening mammogram for malignant neoplasm of breast (principal) | CPT/HCPCS: 77063; 77067 ==

== ENCOUNTER 2023-08-13 08:17 | Outpatient (AMB) | payer OTHER, SELFPAY ==
[2023-08-13 08:32] VITALS: BP 124/62; PULSE 96; O2SAT 98; BMI 24.5
--- NOTE | 2023-08-13 08:32 | MHC.PC.OV ---
Vital Signs 08/13/23 08:32 Height 5 ft Weight 125 lb 6 oz BMI 24.5 BP 124/62 Blood Pressure Location Rt brachial Position Sitting Pulse 96 Pulse Source Pulse Oximeter Pulse Oximetry (%) 98 Oxygen Delivery Method Room Air Intake Visit Reasons: 4 month fu Allergies albuterol [ALBUTEROL] Allergy (Unknown, Verified 08/13/23 08:33) HIVES, SHORTNESS OF BREATH, rash hydrocodone [From Vicodin] Allergy (Unknown, Verified 08/13/23 08:33) Hives, Shortness of Breath fluticasone [Flovent Diskus] Adverse Reaction (Unknown, Verified 08/13/23 08:33) shortness of breath and hives and agitation acetaminophen Adverse Reaction (Verified 08/13/23 08:33) Nose Bleed ibuprofen Adverse Reaction (Verified 08/13/23 08:33) Swelling Medication List - Last Reconciled 08/13/23 by Luca Payan MD aspirin 81 mg PO DAILY clotrimazole-betamethasone 1-0.05 % 1 appl topical BID 30 days famotidine 40 mg PO BEDTIME hydrochlorothiazide 25 mg PO QAM 90 days nicotine (Nicoderm CQ) 1 patch transdermal Q24H 30 days simvastatin 80 mg PO BEDTIME Tobacco use date assessed: 08/13/23 Dental Screening Dental Screen Date: 08/13/23 Did you have a dental visit in the last 12 months?: Yes Did you have a dental problem in the last 6 months where you did not have access to dental care?: No Was dental information given to patient?: Patient has dentist HPI 4 month fu HPI Details Patient is 63-year-old female with a history of left-sided renal cell carcinoma Stable at this time patient had cryotherapy Dec 04 2022 Cancer stage is T1 a, grade 2 Patient is seeing Urology [facility] She has an appointment end of this year and will have repeat MRI Patient is doing well there is no blood in the urine Urology consultation from 06/20/2023 reviewed Due for labs order placed Continued to smoke and drink beer on the weekends mostly Patient is severe of toxic effect of alcohol Blood pressure is controlled, patient is taking hydrochlorothiazide 25 mg And simvastatin 80 mg for lipid control GERD is stable with famotidine 40 mg daily History of sacroiliitis stable Follow-up 4 months [facility] Medical History Tobacco abuse Chronic GERD Hypertension, essential Lipid disorder Surgical History History of esophagogastroduodenoscopy (EGD) Hx of colonoscopy H/O foot surgery History of right salpingo-oophorectomy History of tubal ligation History of tonsillectomy History of laparoscopic appendectomy H/O: hysterectomy Family History Mother Alzheimer's dementia Father Myocardial infarct Social History Household Members Other:: Housing: House Alcohol intake: never Patient Tobacco Use Status: Current everyday Tobacco user Tobacco use type: Cigarette e-Cigarette/Vaping Use: Never Used service: No Current occupational status: employed 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 Cognitive needs: No Hearing needs: No Vision needs: No Questionnaire Thrive Questionnaire Date Thrive assessed: 04/09/23 RAUDEL-7 AMB Questionnaire RAUDEL-7 Date RAUDEL - 7 assessed: 04/09/23 Source: Developed by Drs. Venkat Sparrow, Cyn Douglass, Giovanni Diaz and colleagues, with an educational susan from [employer]. Review of Systems Const Denies chills and Denies fever(s) ENT Denies epistaxis and Denies nasal discharge Card Denies chest pain Resp Denies chest congestion, Denies cough and Denies hemoptysis GI Denies diarrhea and Denies nausea Skin/Breast Denies rash Neuro Reports no additional complaints Psych Reports no additional complaints Endo Reports no additional complaints Physical exam (Primary Care) Vital Signs: Last Vital Signs Pulse 96 08/13/23 08:32 BP 124/62 08/13/23 08:32 Pulse Ox 98 08/13/23 08:32 Oxygen Delivery Method Room Air 08/13/23 08:32 BMI result Body Mass Index 24.5 Tobacco/Smoking Status: Tobacco use Status Tobacco use date assessed 08/13/23 08/13/23 08:35 Patient Tobacco Use Status Current everyday Tobacco 08/13/23 08:35 Tobacco use type Cigarette 08/13/23 08:35 e-Cigarette/Vaping Use Never Used 08/13/23 08:35 Thrive Assessment: Date of Thrive Assessment Date Thrive assessed 04/09/23 08/13/23 08:35 Const General: cooperative, comfortable and no acute distress Orientation/consciousness: patient oriented x3 HENMT Head: Yes normocephalic Eyes General: appearance normal, both eyes and all related structures Neck Neck: Yes supple Resp Effort & Inspection: normal respiratory effort, no cough and no stridor Cardio Rhythm: regular rhythm Heart sounds: S1 normal heart sound present and S2 normal heart sound present Skin General skin exam: turgor normal Neuro General: patient oriented x3, tone normal and moves all extremities Extrem Right lower extremity: no edema Left lower extremity: no edema Assessment and Plan Assessment & Plan (1) Hypertension, essential: Code(s): I10 - Essential (primary) hypertension (2) Lipid disorder: Code(s): E78.9 - Disorder of lipoprotein metabolism, unspecified (3) Chronic GERD: Comment: omeprazole- not working Continue famotidine 40 at HS avoid culprits Code(s): K21.9 - Gastro-esophageal reflux disease without esophagitis (4) Tobacco abuse: Code(s): Z72.0 - Tobacco use (5) Renal cancer: Comment: Cryotherapy 2016 Code(s): C64.9 - Malignant neoplasm of unspecified kidney, except renal pelvis Qualifiers: Laterality: left Qualified Code(s): C64.2 - Malignant neoplasm of left kidney, except renal pelvis (6) Smokers' cough: Code(s): J41.0 - Simple chronic bronchitis (7) Nicotine dependence: Code(s): F17.200 - Nicotine dependence, unspecified, uncomplicated Qualifiers: Nicotine product type: cigarettes Substance use status: uncomplicated Qualified Code(s): F17.210 - Nicotine dependence, cigarettes, uncomplicated (8) Low blood potassium: Code(s): E87.6 - Hypokalemia (9) Sacroiliitis: Code(s): M46.1 - Sacroiliitis, not elsewhere classified Plan Patient is 63-year-old female with a history of left-sided renal cell carcinoma Stable at this time patient had cryotherapy Dec 04 2022 Cancer stage is T1 a, grade 2 Patient is seeing Urology [facility] She has an appointment end of this year and will have repeat MRI Patient is doing well there is no blood in the urine Urology consultation from 06/20/2023 reviewed Due for labs order placed Continued to smoke and drink beer on the weekends mostly Patient is severe of toxic effect of alcohol Blood pressure is controlled, patient is taking hydrochlorothiazide 25 mg And simvastatin 80 mg for lipid control GERD is stable with famotidine 40 mg daily History of sacroiliitis stable Follow-up 4 months Orders: Orders Complete Blood Count Auto Diff Today C64.9 - Malignant neoplasm of unspecified kidney, except renal pelvis, E78.9 - Disorder of lipoprotein metabolism, unspecified, E87.6 - Hypokalemia, F17.200 - Nicotine dependence, unspecified, uncomplicated, G47.9 - Sleep disorder, unspecified, I10 - Essential (primary) hypertension, J41.0 - Simple chronic bronchitis, K21.9 - Gastro-esophageal reflux disease without esophagitis, Z72.0 - Tobacco use Comprehensive Met. Panel Today C64.9 - Malignant neoplasm of unspecified kidney, except renal pelvis, E78.9 - Disorder of lipoprotein metabolism, unspecified, E87.6 - Hypokalemia, F17.200 - Nicotine dependence, unspecified, uncomplicated, G47.9 - Sleep disorder, unspecified, I10 - Essential (primary) hypertension, J41.0 - Simple chronic bronchitis, K21.9 - Gastro-esophageal reflux disease without esophagitis, Z72.0 - Tobacco use LDL Cholesterol Direct Today C64.9 - Malignant neoplasm of unspecified kidney, except renal pelvis, E78.9 - Disorder of lipoprotein metabolism, unspecified, E87.6 - Hypokalemia, F17.200 - Nicotine dependence, unspecified, uncomplicated, G47.9 - Sleep disorder, unspecified, I10 - Essential (primary) hypertension, J41.0 - Simple chronic bronchitis, K21.9 - Gastro-esophageal reflux disease without esophagitis, Z72.0 - Tobacco use Coding Level of Care Code Est Pt Level 4 (34965) Diagnoses Hypertension, essential I10 Lipid disorder E78.9 Chronic GERD K21.9 Tobacco abuse Z72.0 Malignant neoplasm of left kidney C64.2 Laterality: left Smokers' cough J41.0 Cigarette nicotine dependence without complication F17.210 Nicotine product type: cigarettes Substance use status: uncomplicated Low blood potassium E87.6 Sacroiliitis M46.1
== END 2023-08-13 16:12 | disposition home or self-care (01) ==
PROVIDERS: PCP Internal Medicine; Visit Provider Internal Medicine
DX: I10 Essential (primary) hypertension (principal); C64.2 Malignant neoplasm of left kidney, except renal pelvis; J41.0 Simple chronic bronchitis; M46.1 Sacroiliitis, not elsewhere classified; E78.9 Disorder of lipoprotein metabolism, unspecified; K21.9 Gastro-esophageal reflux disease without esophagitis; Z72.0 Tobacco use; F17.210 Nicotine dependence, cigarettes, uncomplicated; E87.6 Hypokalemia
CPT/HCPCS: 99214

== ENCOUNTER 2023-08-23 14:29 | Outpatient (REF) | payer OTHER, SELFPAY ==
[2023-08-23 15:29] LABS: MANUAL DIFF FLAG NO
[2023-08-23 15:47] LABS: Alanine Aminotransferase 14 U/L (0-31); Albumin Level 3.8 g/dL (3.5-5.0); Alkaline Phosphatase 84 U/L (39-117); Anion Gap 13 (12-20); Aspartate Amino Transferase 19 U/L (5-31); Bilirubin Total 0.2 mg/dL (0.0-1.0); Blood Urea Nitrogen 20 mg/dL (9-16); Calcium 9.3 mg/dL (8.4-10.2); Carbon Dioxide 28 mmol/L (22-29); Chloride 100 mmol/L (96-108); Estimated Glomerular Filt Rate 43; Glucose Random 91 mg/dL (60-115); Potassium 3.3 mmol/L (3.3-5.1); Sodium 138 mmol/L (135-145); Total Protein 7.2 g/dL (6.5-8.0)
[2023-08-23 16:00] LABS: Basophils Absolute Auto 0.1 X10*3/uL (0.0-0.2); Basophils Percent Auto 1.2 % (0-2); Eosinophils Absolute Auto 0.4 X10*3/uL (0.0-0.4); Eosinophils Percent Auto 7.5 % (0-4); Imm Gran Abs Auto 0.01 X10*3/uL (0.00-0.03); Imm Gran Pct Auto 0.2 % (0.0-0.4); Lymphocytes Absolute Auto 2.2 X10*3/uL (1.2-4.9); Lymphocytes Percent Auto 44.8 % (20-40); Mean Corpuscular HGB Conc 33.3 g/dl (31.0-35.0); Mean Corpuscular Hemoglobin 30.9 pg (27.0-33.0); Mean Corpuscular Volume 92.7 fL (80.0-98.0); Mean Platelet Volume 9.3 fL (9.4-12.3); Monocytes Absolute Auto 0.5 X10*3/uL (0.1-1.2); Monocytes Percent Auto 9.3 % (2-11); Neutrophils Absolute Auto 1.8 x10*3/uL (2.0-8.3); Platelet Count 343 X10*3/uL (160-400); Red Blood Count 3.56 X10*6/uL (4.20-5.50); Red Cell Distribution Width 12.6 % (11.0-16.0); White Blood Count 4.9 X10*3/uL (4.8-10.8)
[2023-08-25 09:49] LABS: LDL Cholesterol Direct 96 mg/dL (<100)
== END 2023-08-23 14:30 | disposition home or self-care (01) ==
LOC: HO.HMGCLDS 14:29
PROVIDERS: PCP Internal Medicine; Visit Provider Internal Medicine
DX: I10 Essential (primary) hypertension (principal); E78.9 Disorder of lipoprotein metabolism, unspecified; K21.9 Gastro-esophageal reflux disease without esophagitis; C64.9 Malignant neoplasm of unspecified kidney, except renal pelvis; G47.9 Sleep disorder, unspecified; J41.0 Simple chronic bronchitis; F17.200 Nicotine dependence, unspecified, uncomplicated; E87.6 Hypokalemia
CPT/HCPCS: 36415; 80053; 83721; 85025

== ENCOUNTER 2023-12-10 09:12 | Outpatient (AMB) | payer OTHER, SELFPAY ==
[2023-12-10 09:17] VITALS: BP 134/70; PULSE 102; O2SAT 98; BMI 24.5
--- NOTE | 2023-12-10 09:17 | MHC.PC.OV ---
Vital Signs 12/10/23 09:17 Height 5 ft Weight 125 lb 8 oz BMI 24.5 BP 134/70 Blood Pressure Location Rt brachial Position Sitting Pulse 102 H Pulse Source Pulse Oximeter Pulse Oximetry (%) 98 Oxygen Delivery Method Room Air Intake Visit Reasons: 8 month fu Allergies albuterol [ALBUTEROL] Allergy (Unknown, Verified 12/10/23 09:19) HIVES, SHORTNESS OF BREATH, rash hydrocodone [From Vicodin] Allergy (Unknown, Verified 12/10/23 09:19) Hives, Shortness of Breath fluticasone [Flovent Diskus] Adverse Reaction (Unknown, Verified 12/10/23 09:19) shortness of breath and hives and agitation acetaminophen Adverse Reaction (Verified 12/10/23 09:19) Nose Bleed ibuprofen Adverse Reaction (Verified 12/10/23 09:19) Swelling Medication List - Last Reconciled 12/10/23 by Luca Payan MD aspirin 81 mg PO DAILY clotrimazole-betamethasone 1-0.05 % 1 appl topical BID 30 days famotidine 40 mg PO BEDTIME hydrochlorothiazide 25 mg PO QAM 90 days nicotine (Nicoderm CQ) 1 patch transdermal Q24H 30 days nicotine (Nicoderm CQ) 1 patch transdermal Q24H simvastatin 80 mg PO BEDTIME Tobacco use date assessed: 12/10/23 Dental Screening Dental Screen Date: 12/10/23 Did you have a dental visit in the last 12 months?: Yes Did you have a dental problem in the last 6 months where you did not have access to dental care?: No Was dental information given to patient?: Patient has dentist HPI 8 month fu HPI Details Patient is 63-year-old female , came in today for follow-up appointment I noticed that her hemoglobin has dropped compared to December of last year It was 12.7 and now it is 11.0, at her last labs in August Patient does not have any hemorrhoids that she knows of but does have mild constipation We will be repeating labs again She is doing well as far as smoking is concerned and is now on Nicoderm 7 mg patches only She has history of left-sided renal cell carcinoma Stable at this time patient had cryotherapy Dec 04 2022 Cancer stage is T1 a, grade 2 Patient is seeing Urology [facility] drink beer on the weekends mostly Patient is severe of toxic effect of alcohol Blood pressure is controlled, patient is taking hydrochlorothiazide 25 mg And simvastatin 80 mg for lipid control GERD is stable with famotidine 40 mg daily History of sacroiliitis stable Follow-up 4 months [facility] Medical History Tobacco abuse Chronic GERD Hypertension, essential Lipid disorder Surgical History History of esophagogastroduodenoscopy (EGD) Hx of colonoscopy H/O foot surgery History of right salpingo-oophorectomy History of tubal ligation History of tonsillectomy History of laparoscopic appendectomy H/O: hysterectomy Family History Mother Alzheimer's dementia Father Myocardial infarct Social History Household Members Other:: Housing: House Alcohol intake: never Patient Tobacco Use Status: Current everyday Tobacco user Tobacco use type: Cigarette e-Cigarette/Vaping Use: Never Used service: No Current occupational status: employed 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 Cognitive needs: No Hearing needs: No Vision needs: No Questionnaire PHQ-9 Over the last 2 weeks, how often have you been bothered by any of the following problems? 1. Little interest or pleasure in doing things: not at all 2. Feeling down, depressed, or hopeless: not at all 3. Trouble falling or staying asleep, or sleeping too much: not at all 4. Feeling tired or having little energy: not at all 5. Poor appetite or overeating: not at all 6. Feeling bad about yourself - or that you are a failure or have let yourself or your family down: not at all 7. Trouble concentrating on things, such as reading the newspaper or watching television: not at all 8. Moving or speaking so slowly that other people could have noticed. Or the opposite - being so fidgety or restless that you have been moving around a lot more than usual: not at all 9. Thoughts that you would be better off or of hurting yourself in some way: not at all Total score: 0 Depression Screening Interpretation: Negative Depression Screening Done: Yes 91108 - PHQ-9 Billing: Yes Source: Developed by Drs. Venkat Sparrow, Cyn Douglass, Giovanni Diaz and colleagues, with an educational susan from [employer]. Thrive Questionnaire Date Thrive assessed: 12/10/23 I am a: Patient What is your living situation today?: I have a steady place to live Within the past 12 months, did the food you bought not last and you didn't have the money to get more?: Never true Within the past 12 months, did you worry whether your food would run out before you got money to buy more?: Never true Do you have trouble paying for medicines?: No Do you have trouble getting transportation to medical appointments?: No Do you have trouble paying your heating and electricity bill?: No Do you have trouble taking care of your child, family member or friend?: No Do you have trouble with day-to-day activities such as bathing, preparing meals, shopping, managing finances, etc.?: No Are you currently unemployed and looking for a job?: No Are you interested in more education?: No Please select the resources that you would like help with: None Currently or been in a relationship where the following occur: no concerns reported THRIVE Score: 0 AUDIT C Alcohol Use Questionnaire (AUDIT-C) 1. How often do you have a drink containing alcohol?: Monthly or less 2. How many drinks containing alcohol do you have on a typical day when you are drinking?: 1 or 2 3. How often do you have six or more drinks on one occasion?: Never Total Score: 1 Score Reviewed/Action Taken: Yes RAUDEL-7 AMB Questionnaire RAUDEL-7 Date RAUDEL - 7 assessed: 12/10/23 Feeling nervous, anxious, or on edge: 0 = Not at all Not being able to stop or control worryin = Not at all Worrying too much about different things: 0 = Not at all Trouble relaxin = Not at all Being so restless that it is hard to sit still: 0 = Not at all Becoming easily annoyed or irritable: 0 = Not at all Feeling afraid as if something awful might happen: 0 = Not at all Total RAUDEL-7 score (0-4 normal; 5-9 mild; 10-14 moderate; 15-21 severe): 0 Source: Developed by Drs. Venkat Sparrow, Cyn Douglass, Giovanni Diaz and colleagues, with an educational susan from [employer]. RAUDEL-7 Assessment Billing RAUDEL-7 Assessment Tool: RAUDEL-7 Assessment 36524 Review of Systems Const Denies chills and Denies fever(s) ENT Denies epistaxis and Denies nasal discharge Card Denies chest pain Resp Denies chest congestion, Denies cough and Denies hemoptysis GI Denies diarrhea and Denies nausea Skin/Breast Denies rash Neuro Reports no additional complaints Psych Reports no additional complaints Endo Reports no additional complaints Physical exam (Primary Care) Vital Signs: Last Vital Signs Pulse 102 H 12/10/23 09:17 BP 134/70 12/10/23 09:17 Pulse Ox 98 12/10/23 09:17 Oxygen Delivery Method Room Air 12/10/23 09:17 BMI result Body Mass Index 24.5 Tobacco/Smoking Status: Tobacco use Status Tobacco use date assessed 12/10/23 12/10/23 09:21 Patient Tobacco Use Status Current everyday Tobacco 12/10/23 09:21 Tobacco use type Cigarette 12/10/23 09:21 e-Cigarette/Vaping Use Never Used 12/10/23 09:21 PHQ-9: PHQ-9 Score PHQ-9: Total score 0 12/10/23 09:53 Depression Screening Interpretation: Negative Thrive Assessment: Date of Thrive Assessment Date Thrive assessed 12/10/23 12/10/23 09:47 Currently or been in a relationship where the following occur: no concerns reported Const General: cooperative, comfortable and no acute distress Orientation/consciousness: patient oriented x3 HENMT Head: Yes normocephalic Eyes General: appearance normal, both eyes and all related structures Neck Neck: Yes supple Resp Effort & Inspection: normal respiratory effort, no cough and no stridor Cardio Rhythm: regular rhythm Heart sounds: S1 normal heart sound present and S2 normal heart sound present Skin General skin exam: turgor normal Neuro General: patient oriented x3, tone normal and moves all extremities Extrem Right lower extremity: no edema Left lower extremity: no edema Assessment and Plan Assessment & Plan (1) Hypertension, essential: Code(s): I10 - Essential (primary) hypertension (2) Lipid disorder: Code(s): E78.9 - Disorder of lipoprotein metabolism, unspecified (3) Chronic GERD: Comment: omeprazole- not working Continue famotidine 40 at HS avoid culprits Code(s): K21.9 - Gastro-esophageal reflux disease without esophagitis (4) Tobacco abuse: Code(s): Z72.0 - Tobacco use (5) Renal cancer: Comment: Cryotherapy 2016 Code(s): C64.9 - Malignant neoplasm of unspecified kidney, except renal pelvis Qualifiers: Laterality: left Qualified Code(s): C64.2 - Malignant neoplasm of left kidney, except renal pelvis (6) Smokers' cough: Code(s): J41.0 - Simple chronic bronchitis (7) Nicotine dependence: Code(s): F17.200 - Nicotine dependence, unspecified, uncomplicated Qualifiers: Nicotine product type: cigarettes Substance use status: uncomplicated Qualified Code(s): F17.210 - Nicotine dependence, cigarettes, uncomplicated (8) Low blood potassium: Code(s): E87.6 - Hypokalemia (9) Sacroiliitis: Code(s): M46.1 - Sacroiliitis, not elsewhere classified (10) Iron deficiency anemia: Code(s): D50.9 - Iron deficiency anemia, unspecified Qualifiers: Iron deficiency anemia type: chronic blood loss Qualified Code(s): D50.0 - Iron deficiency anemia secondary to blood loss (chronic) Plan Patient is 63-year-old female , came in today for follow-up appointment I noticed that her hemoglobin has dropped compared to December of last year It was 12.7 and now it is 11.0, at her last labs in August Patient does not have any hemorrhoids that she knows of but does have mild constipation We will be repeating labs again She is doing well as far as smoking is concerned and is now on Nicoderm 7 mg patches only She has history of left-sided renal cell carcinoma Stable at this time patient had cryotherapy Dec 04 2022 Cancer stage is T1 a, grade 2 Patient is seeing Urology [facility] drink beer on the weekends mostly Patient is severe of toxic effect of alcohol Blood pressure is controlled, patient is taking hydrochlorothiazide 25 mg And simvastatin 80 mg for lipid control GERD is stable with famotidine 40 mg daily History of sacroiliitis stable Follow-up 4 months Orders: Orders Complete Blood Count Auto Diff Today D50.9 - Iron deficiency anemia, unspecified Ferritin Today D50.9 - Iron deficiency anemia, unspecified Medications: New nicotine (Nicoderm CQ) 1 patch transdermal Q24H 14 ea 3RF Coding Level of Care Code Est Pt Level 4 (89041) Complex EM visit Add On G2211 Diagnoses Hypertension, essential I10 Lipid disorder E78.9 Chronic GERD K21.9 Tobacco abuse Z72.0 Malignant neoplasm of left kidney C64.2 Laterality: left Smokers' cough J41.0 Cigarette nicotine dependence without complication F17.210 Nicotine product type: cigarettes Substance use status: uncomplicated Low blood potassium E87.6 Sacroiliitis M46.1 Iron deficiency anemia due to chronic blood loss D50.0 Iron deficiency anemia type: chronic blood loss Additional Codes RAUDEL-7 Assessment Billing - RAUDEL-7 Assessment Tool: RAUDEL-7 Assessment 21039 ([id number])
== END 2023-12-10 10:15 | disposition home or self-care (01) ==
PROVIDERS: PCP Internal Medicine; Visit Provider Internal Medicine
DX: I10 Essential (primary) hypertension (principal); C64.2 Malignant neoplasm of left kidney, except renal pelvis; J41.0 Simple chronic bronchitis; M46.1 Sacroiliitis, not elsewhere classified; E78.9 Disorder of lipoprotein metabolism, unspecified; K21.9 Gastro-esophageal reflux disease without esophagitis; Z72.0 Tobacco use; F17.210 Nicotine dependence, cigarettes, uncomplicated; E87.6 Hypokalemia; D50.0 Iron deficiency anemia secondary to blood loss (chronic)
CPT/HCPCS: 99214; G2211

== ENCOUNTER 2024-04-14 10:21 | Outpatient (AMB) | payer OTHER, SELFPAY ==
[2024-04-14 10:29] VITALS: BP 140/78; PULSE 97; O2SAT 93; BMI 24.5
--- NOTE | 2024-04-14 10:29 | MHC.PC.OV ---
Vital Signs 04/14/24 10:29 Height 5 ft Weight 125 lb 8 oz BMI 24.5 BP 140/78 H Blood Pressure Location Lt brachial Position Sitting Pulse 97 Pulse Source Pulse Oximeter Pulse Oximetry (%) 93 Oxygen Delivery Method Room Air Intake Visit Reasons: PE Allergies albuterol [ALBUTEROL] Allergy (Unknown, Verified 04/14/24 10:32) HIVES, SHORTNESS OF BREATH, rash hydrocodone [From Vicodin] Allergy (Unknown, Verified 04/14/24 10:32) Hives, Shortness of Breath fluticasone [Flovent Diskus] Adverse Reaction (Unknown, Verified 04/14/24 10:32) shortness of breath and hives and agitation acetaminophen Adverse Reaction (Verified 04/14/24 10:32) Nose Bleed ibuprofen Adverse Reaction (Verified 04/14/24 10:32) Swelling Medication List - Last Reconciled 04/14/24 by Luca Payan MD aspirin 81 mg PO DAILY clotrimazole-betamethasone 1-0.05 % 1 appl topical BID 30 days famotidine 40 mg PO BEDTIME hydrochlorothiazide 25 mg PO QAM 90 days nicotine (Nicoderm CQ) 1 patch transdermal Q24H 30 days nicotine (Nicoderm CQ) 1 patch transdermal Q24H simvastatin 80 mg PO BEDTIME Tobacco use date assessed: 04/14/24 Dental Screening Dental Screen Date: 04/14/24 Did you have a dental visit in the last 12 months?: Yes Did you have a dental problem in the last 6 months where you did not have access to dental care?: No Was dental information given to patient?: Patient has dentist HPI PE HPI Details Patient is 63-year-old female came in for physical exam Patient has cut down on smoking a lot she tells me And she is working on it Blood pressure is slightly elevated today but usually it runs within normal range She is taking her medications Mammogram was June of last year Colonoscopy was January of [address] Baptiste [facility] Patient has a history of complete hysterectomy secondary to endometriosis She is due for labs order placed to be done fasting Follow-up 4 months, physical exam 1 year [facility] Medical History Tobacco abuse Chronic GERD Hypertension, essential Lipid disorder Surgical History History of esophagogastroduodenoscopy (EGD) Hx of colonoscopy H/O foot surgery History of right salpingo-oophorectomy History of tubal ligation History of tonsillectomy History of laparoscopic appendectomy H/O: hysterectomy Family History Mother Alzheimer's dementia Father Myocardial infarct Social History Household Members Other:: Housing: House Alcohol intake: never Patient Tobacco Use Status: Current everyday Tobacco user Tobacco use type: Cigarette e-Cigarette/Vaping Use: Never Used service: No Current occupational status: employed 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 Cognitive needs: No Hearing needs: No Vision needs: No Questionnaire PHQ-9 Over the last 2 weeks, how often have you been bothered by any of the following problems? 1. Little interest or pleasure in doing things: not at all 2. Feeling down, depressed, or hopeless: not at all 3. Trouble falling or staying asleep, or sleeping too much: not at all 4. Feeling tired or having little energy: not at all 5. Poor appetite or overeating: not at all 6. Feeling bad about yourself - or that you are a failure or have let yourself or your family down: not at all 7. Trouble concentrating on things, such as reading the newspaper or watching television: not at all 8. Moving or speaking so slowly that other people could have noticed. Or the opposite - being so fidgety or restless that you have been moving around a lot more than usual: not at all 9. Thoughts that you would be better off or of hurting yourself in some way: not at all Total score: 0 Depression Screening Interpretation: Negative Depression Screening Done: Yes 41770 - PHQ-9 Billing: Yes Source: Developed by Drs. Venkat Sparrow, Cyn Duoglass, Giovanni Diaz and colleagues, with an educational susan from [employer]. Thrive Questionnaire Date Thrive assessed: 04/11/24 I am a: Patient What is your living situation today?: I have a steady place to live Within the past 12 months, did the food you bought not last and you didn't have the money to get more?: Never true Within the past 12 months, did you worry whether your food would run out before you got money to buy more?: Never true Do you have trouble paying for medicines?: No Do you have trouble getting transportation to medical appointments?: No Do you have trouble paying your heating and electricity bill?: No Do you have trouble taking care of your child, family member or friend?: No Do you have trouble with day-to-day activities such as bathing, preparing meals, shopping, managing finances, etc.?: No Are you interested in more education?: No Please select the resources that you would like help with: None Currently or been in a relationship where the following occur: No concerns reported THRIVE Score: 0 AUDIT C Alcohol Use Questionnaire (AUDIT-C) 1. How often do you have a drink containing alcohol?: Monthly or less 2. How many drinks containing alcohol do you have on a typical day when you are drinking?: 1 or 2 3. How often do you have six or more drinks on one occasion?: Less than monthly Total Score: 2 RAUDEL-7 AMB Questionnaire RAUDEL-7 Date RAUDEL - 7 assessed: 12/10/23 Feeling nervous, anxious, or on edge: 0 = Not at all Not being able to stop or control worryin = Not at all Worrying too much about different things: 0 = Not at all Trouble relaxin = Not at all Being so restless that it is hard to sit still: 0 = Not at all Becoming easily annoyed or irritable: 0 = Not at all Feeling afraid as if something awful might happen: 0 = Not at all Total RAUDEL-7 score (0-4 normal; 5-9 mild; 10-14 moderate; 15-21 severe): 0 Source: Developed by Drs. Venkat Sparrow, Cyn Douglass, Giovanni Diaz and colleagues, with an educational susan from [employer]. Review of Systems Const Denies chills, Denies fever(s) and Denies headache(s) Eyes Denies blurry vision ENT Denies headache(s), Denies nasal discharge, Denies nasal obstruction, Denies odynophagia and Denies sinus pain Card Denies chest pain at rest and Denies chest pain with activity Resp Denies cough and Denies hemoptysis GI Denies diarrhea, Denies odynophagia, Denies vomiting and Denies hematemesis Reports as per HPI Musc Denies abnormal gait Skin/Breast Reports as per HPI Neuro Denies Neuro-related abnormal movements, Denies Abnormal speech present, Denies abnormal gait, Denies headache(s) and Denies Sensory deficit (Neuro) Psych Denies mood swings and Denies paranoia Endo Reports as per HPI Francesco/Lymph Reports as per HPI Aller/Immun Reports as per HPI Physical exam (Primary Care) Vital Signs: Last Vital Signs Pulse 97 04/14/24 10:29 BP 140/78 H 04/14/24 10:29 Pulse Ox 93 04/14/24 10:29 Oxygen Delivery Method Room Air 04/14/24 10:29 BMI result Body Mass Index 24.5 Tobacco/Smoking Status: Tobacco use Status Tobacco use date assessed 04/14/24 04/14/24 10:32 Patient Tobacco Use Status Current everyday Tobacco 04/14/24 10:32 Tobacco use type Cigarette 04/14/24 10:32 e-Cigarette/Vaping Use Never Used 04/14/24 10:32 PHQ-9: PHQ-9 Score PHQ-9: Total score 0 04/14/24 10:45 Depression Screening Interpretation: Negative Thrive Assessment: Date of Thrive Assessment Date Thrive assessed 04/11/24 04/14/24 10:32 Currently or been in a relationship where the following occur: No concerns reported Const General: cooperative, comfortable and no acute distress Orientation/consciousness: patient oriented x3 [facility] Head: Yes normocephalic and Yes atraumatic Eyes General: appearance normal, both eyes and all related structures Pupils: Equal, round and reactive pupils present EOM: EOMs intact bilaterally Neck Neck: Yes supple and No lymphadenopathy Thyroid: Thyroid normal Lymphatic: no lymphadenopathy noted Resp Effort & Inspection: normal respiratory effort and able to speak in complete sentences Auscultation: clear to auscultation bilaterally Cardio Heart sounds: S1 normal heart sound present and S2 normal heart sound present GI Palpation (GI): Soft to palpation and nontender Auscultation: normal bowel sounds General: Yes no CVA tenderness Back/Spine/Pelvis Back: no CVA tenderness Skin General skin exam: elasticity normal and turgor normal Neuro General: patient oriented x3 and gait normal Cranial nerves: Yes Equal, round and reactive pupils present Speech: No Abnormal speech present Sensory Exam: No Sensory deficit (Neuro) Coordination: tandem gait normal and Romberg test negative Extrem General: Yes normal exam except as noted and No edema Assessment and Plan Assessment & Plan (1) Encounter for general adult medical examination with abnormal findings: Code(s): Z00.01 - Encounter for general adult medical examination with abnormal findings (2) Lipid disorder: Code(s): E78.9 - Disorder of lipoprotein metabolism, unspecified (3) Hypertension, essential: Code(s): I10 - Essential (primary) hypertension (4) Chronic GERD: Comment: omeprazole- not working Continue famotidine 40 at HS avoid culprits Code(s): K21.9 - Gastro-esophageal reflux disease without esophagitis (5) Nicotine dependence: Code(s): F17.200 - Nicotine dependence, unspecified, uncomplicated Qualifiers: Nicotine product type: cigarettes Substance use status: uncomplicated Qualified Code(s): F17.210 - Nicotine dependence, cigarettes, uncomplicated Plan Patient is 63-year-old female came in for physical exam Patient has cut down on smoking a lot she tells me And she is working on it Blood pressure is slightly elevated today but usually it runs within normal range She is taking her medications Mammogram was June of last year Colonoscopy was January of [address] Baptiste [facility] Patient has a history of complete hysterectomy secondary to endometriosis She is due for labs order placed to be done fasting Breast exam declined Follow-up 4 months, physical exam 1 year Orders: Orders Complete Blood Count Auto Diff Today E78.9 - Disorder of lipoprotein metabolism, unspecified, F17.210 - Nicotine dependence, cigarettes, uncomplicated, I10 - Essential (primary) hypertension, K21.9 - Gastro-esophageal reflux disease without esophagitis, Z00.01 - Encounter for general adult medical examination with abnormal findings Comprehensive [place]. Panel Fast Today E78.9 - Disorder of lipoprotein metabolism, unspecified, F17.210 - Nicotine dependence, cigarettes, uncomplicated, I10 - Essential (primary) hypertension, K21.9 - Gastro-esophageal reflux disease without esophagitis, Z00.01 - Encounter for general adult medical examination with abnormal findings TSH reflex Free T4 Today E78.9 - Disorder of lipoprotein metabolism, unspecified, F17.210 - Nicotine dependence, cigarettes, uncomplicated, I10 - Essential (primary) hypertension, K21.9 - Gastro-esophageal reflux disease without esophagitis, Z00.01 - Encounter for general adult medical examination with abnormal findings Lipid Panel Today E78.9 - Disorder of lipoprotein metabolism, unspecified, F17.210 - Nicotine dependence, cigarettes, uncomplicated, I10 - Essential (primary) hypertension, K21.9 - Gastro-esophageal reflux disease without esophagitis, Z00.01 - Encounter for general adult medical examination with abnormal findings Vitamin D 25-OH (D2 and D3) Today E78.9 - Disorder of lipoprotein metabolism, unspecified, F17.210 - Nicotine dependence, cigarettes, uncomplicated, I10 - Essential (primary) hypertension, K21.9 - Gastro-esophageal reflux disease without esophagitis, Z00.01 - Encounter for general adult medical examination with abnormal findings Coding Level of Care Code Est Pt Level 3 (48387) Est Pt Prev Care 40-64y(36557) Diagnoses Encounter for general adult medical examination with abnormal findings Z00.01 Lipid disorder E78.9 Hypertension, essential I10 Chronic GERD K21.9 Cigarette nicotine dependence without complication F17.210 Nicotine product type: cigarettes Substance use status: uncomplicated
== END 2024-04-14 10:48 | disposition home or self-care (01) ==
PROVIDERS: PCP Internal Medicine; Visit Provider Internal Medicine
DX: Z00.00 Encounter for general adult medical examination without abnormal findings (principal); E78.9 Disorder of lipoprotein metabolism, unspecified; I10 Essential (primary) hypertension; K21.9 Gastro-esophageal reflux disease without esophagitis; F17.210 Nicotine dependence, cigarettes, uncomplicated

== ENCOUNTER → 2024-04-14 10:21 | Outpatient (BNVA) | payer OTHER, SELFPAY | PROVIDERS: PCP Internal Medicine; Visit Provider Internal Medicine | DX: Z00.01 Encounter for general adult medical examination with abnormal findings (principal); E78.9 Disorder of lipoprotein metabolism, unspecified; I10 Essential (primary) hypertension; K21.9 Gastro-esophageal reflux disease without esophagitis; F17.210 Nicotine dependence, cigarettes, uncomplicated; Z71.6 Tobacco abuse counseling | CPT/HCPCS: 96127; 99396 ==

== ENCOUNTER 2024-04-14 10:49 | Outpatient (REF) | payer OTHER, SELFPAY ==
[2024-04-14 13:37] LABS: MANUAL DIFF FLAG NO
[2024-04-14 13:45] LABS: Basophils Absolute Auto 0.1 X10*3/uL (0.0-0.2); Basophils Percent Auto 1.3 % (0-2); Eosinophils Absolute Auto 0.3 X10*3/uL (0.0-0.4); Eosinophils Percent Auto 7.2 % (0-4); Hematocrit 35.6 % (37.0-47.0); Imm Gran Abs Auto 0.02 X10*3/uL (0.00-0.03); Imm Gran Pct Auto 0.4 % (0.0-0.4); Lymphocytes Absolute Auto 1.7 X10*3/uL (1.2-4.9); Lymphocytes Percent Auto 37.9 % (20-40); Mean Corpuscular HGB Conc 33.7 g/dl (31.0-35.0); Mean Corpuscular Hemoglobin 31.2 pg (27.0-33.0); Mean Corpuscular Volume 92.5 fL (80.0-98.0); Mean Platelet Volume 9.9 fL (9.4-12.3); Monocytes Absolute Auto 0.4 X10*3/uL (0.1-1.2); Monocytes Percent Auto 9.2 % (2-11); Platelet Count 310 X10*3/uL (160-400); Red Blood Count 3.85 X10*6/uL (4.20-5.50); Red Cell Distribution Width 13.7 % (11.0-16.0); White Blood Count 4.6 X10*3/uL (4.8-10.8)
[2024-04-14 14:11] LABS: Alanine Aminotransferase 21 U/L (0-31); Alkaline Phosphatase 85 U/L (39-117); Anion Gap 14 (12-20); Aspartate Amino Transferase 33 U/L (5-31); Bilirubin Total 0.3 mg/dL (0.0-1.0); Blood Urea Nitrogen 11 mg/dL (9-16); Calcium 9.9 mg/dL (8.4-10.2); Carbon Dioxide 28 mmol/L (22-29); Chloride 95 mmol/L (96-108); Cholesterol 191 mg/dL (<200); Estimated Glomerular Filt Rate > 60; Glucose Fasting 92 mg/dL (60-99); Glucose Random 92 mg/dL (60-115); HDL Cholesterol 90 mg/dL (>40); LDL Cholesterol Calculated 90 mg/dL (<100); Potassium 4.3 mmol/L (3.3-5.1); Sodium 133 mmol/L (135-145); Total Protein 7.6 g/dL (6.5-8.0); Triglycerides 59 mg/dL (<150)
[2024-04-14 14:37] LABS: Ferritin 23 ng/mL (10-250); TSH reflex Free T4 1.07 uIU/mL (0.32-4.0)
[2024-04-18 13:49] LABS: Vitamin D 25-OH, D2 <4 ng/mL; Vitamin D 25-OH, D3 21 ng/mL; Vitamin D 25-OH, Total 21 ng/mL (30-100)
== END 2024-04-14 10:50 | disposition home or self-care (01) ==
LOC: HO.HMGCLDS 10:49
PROVIDERS: PCP Internal Medicine; Visit Provider Internal Medicine
DX: Z00.01 Encounter for general adult medical examination with abnormal findings (principal); D50.9 Iron deficiency anemia, unspecified; I10 Essential (primary) hypertension; E78.9 Disorder of lipoprotein metabolism, unspecified; K21.9 Gastro-esophageal reflux disease without esophagitis; F17.210 Nicotine dependence, cigarettes, uncomplicated; R94.4 Abnormal results of kidney function studies; E87.6 Hypokalemia
CPT/HCPCS: 36415; 80053; 80061; 82306; 82728; 84443; 85025

== ENCOUNTER → 2024-06-14 10:49 | Outpatient (BNV) | payer OTHER, SELFPAY | PROVIDERS: PCP Internal Medicine; Visit Provider Radiology Diagnostic Radiology | DX: C64.9 Malignant neoplasm of unspecified kidney, except renal pelvis (principal) | CPT/HCPCS: 74183 ==

== ENCOUNTER 2024-06-14 10:50 | Outpatient (REF) | payer OTHER, SELFPAY ==
[2024-06-14] MEDS: gadobutroL 7.5 ML VIAL IVPUSH (11:42)
== END 2024-06-14 10:51 | disposition home or self-care (01) ==
LOC: HO.MRI 10:50
PROVIDERS: PCP Internal Medicine; Visit Provider Urology
DX: C64.9 Malignant neoplasm of unspecified kidney, except renal pelvis (principal)
CPT/HCPCS: 74183; A9585

== ENCOUNTER 2024-06-22 14:04 | Outpatient (AMB) | payer OTHER, SELFPAY ==
--- NOTE | 2024-06-22 14:06 | A.OFFVIS_ITS ---
Intake Visit Reasons: 1Y MRI(06/14)Pending Intake Note: Patient is Present for 1y MRI Follow Up Urology Medication: None Antibiotic Allergies:None Blood Thinners: Aspirin Homicide [employer] Required: No Allergies albuterol [ALBUTEROL] Allergy (Unknown, Verified 06/22/24 14:07) HIVES, SHORTNESS OF BREATH, rash hydrocodone [From Vicodin] Allergy (Unknown, Verified 06/22/24 14:07) Hives, Shortness of Breath fluticasone [Flovent Diskus] Adverse Reaction (Unknown, Verified 06/22/24 14:07) shortness of breath and hives and agitation acetaminophen Adverse Reaction (Verified 06/22/24 14:07) Nose Bleed ibuprofen Adverse Reaction (Verified 06/22/24 14:07) Swelling HPI Comments Details: Shagufta MARQUEZ is a very pleasant female.. They are a patient of Dr Payan. They are seen in the office today for the following urologic conditions. - renal cell carcinoma Renal ultrasound stable Will repeat MRI in 12 months given some degree of overlap morphology Otherwise well Twelve month follow-up renal ultrasound Renal lesion: Renal carcinoma 12/04 cryotherapy left side Continue surveillance. They present for continued followup and management, , left side, renal cancer - Imaging NAD - continue every 12 months with ultrasound - repeat CT at 5 year. The renal mass was diagnosed during evaluation for, hematuria. Imaging included 11/[address] (computed tomography) scan of the abdomen/pelvis, showing class IV cyst(s), 2-3.0 cm in size, on the left, lower pole, nonenhancing 12/04 Biopsy renal carcinoma Grade II 10/05 , a CT (computed tomography) scan of the abdomen/pelvis, showing scarring, 03/07 , a renal ultrasound, scarring 10/06 , a renal ultrasound, scarring, 04/08 , a renal ultrasound, normal 10/07 , a CT (computed tomography) scan of the abdomen/pelvis left lower pole 2.5 cm scarred nodule, 04/09 CXR NAD - 10/08 CT scan scarring left kidney consistent with treatment effect - 04/10 CXR NAD, 11/09 renal ultrasound scarring - 05/11 CT with contrast 2.5 cc scarred lower pole nodule, otherwise normal - 05/12 ultrasound unchanged imaging - 05/13 MRI Prior treatment(s) included 03/06 Cryotherapy Renae Mcdonald Cr 0.9 Baseline. Staging of initial cancer T1a. The diagnosis was 12/04 biopsy renal cell carcinoma, Grade II. Planned therapeutic plan further surveillance with imaging and laboratory investigations appropriate for pathology findings and patient performance status PFSH Medical History Tobacco abuse Chronic GERD Hypertension, essential Lipid disorder Surgical History History of esophagogastroduodenoscopy (EGD) Hx of colonoscopy H/O foot surgery History of right salpingo-oophorectomy History of tubal ligation History of tonsillectomy History of laparoscopic appendectomy H/O: hysterectomy Family History Mother Alzheimer's dementia Father Myocardial infarct Social History Household Members Other:: Housing: House Alcohol intake: never Patient Tobacco Use Status: Current everyday Tobacco user Tobacco use type: Cigarette e-Cigarette/Vaping Use: Never Used service: No Current occupational status: employed 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 Cognitive needs: No Hearing needs: No Vision needs: No Review of Systems Const Denies chills and Denies fever(s) Card Reports no additional complaints and Denies syncope Resp Denies cough GI Denies abdominal pain and Denies heartburn Reports as per HPI and Denies change in libido Neuro Denies syncope Psych Denies change in libido Endo Denies change in libido Physical Exam Const General: cooperative, healthy appearing, comfortable and no acute distress Orientation/consciousness: patient oriented x3 HEENT Face and sinus: Yes normal facial exam Mouth: moist mucous membranes Neck Neck: Yes normal visual inspection, Yes full ROM and Yes trachea midline Chest Chest palpation & inspection: normal inspection of the chest Resp Effort & Inspection: normal respiratory effort, able to speak in complete sentences and no respiratory distress GI Inspection: Yes normal to inspection Back/Spine/Pelvis Cervical Spine: normal cervical lordosis Thoracic/Lumbar Spine: thoracic and lumbar spine normal to inspection Skin General skin exam: no rashes or lesions noted Neuro General: patient oriented x3, gait normal, tone normal and moves all extremities Extrem General: Yes normal to inspection and Yes capillary refill normal Assessment & Plan Assessment & Plan (1) Renal cancer: Comment: Cryotherapy 2017 Code(s): C64.9 - Malignant neoplasm of unspecified kidney, except renal pelvis Category: Medical Qualifiers: Laterality: left Qualified Code(s): C64.2 - Malignant neoplasm of left kidney, except renal pelvis Plan Twelve month follow-up renal ultrasound Orders: Orders US renal BI 12 Months C64.2 - Malignant neoplasm of left kidney, except renal pelvis Patient Instructions: Imaging studies, laboratory and physical exam results were discussed and reviewed in detail. No major barriers to patient understanding were identified. An opportunity to ask questions regarding the treatment plan was provided. All questions were answered. The patient expressed understanding and agreement with the above treatment plan. The patient is aware they should contact our office by phone for worsening of th eir current condition or the appearance of new urologic symptoms. Compliance is encouraged with any medications and followup testing that is ordered. It is a privilege to participate in the urologic care of your patient. If you have any questions or concerns regarding treatment for the above conditions, or other urologic issues, please do not hesitate to contact me. The office telephone contact is [phone]. This note is constructed using voice recognition software. While every effort has been made to ensure accuracy cement mason apprentice errors may have been included. Yours sincerely, Dr Ramirez Dodd MD, [facility] - Urology Providers of Expert, Compassionate Care for the Genitourinary System Coding Level of Care Code Est Pt Level 4 (43866) Diagnoses Malignant neoplasm of left kidney C64.2 Laterality: left
== END 2024-06-22 14:32 | disposition home or self-care (01) ==
PROVIDERS: PCP Internal Medicine; Visit Provider Urology
DX: C64.2 Malignant neoplasm of left kidney, except renal pelvis (principal)
CPT/HCPCS: 99214

== ENCOUNTER → 2024-06-22 14:04 | Outpatient (BNVA) | payer OTHER, SELFPAY | PROVIDERS: PCP Internal Medicine; Visit Provider Urology | DX: C64.2 Malignant neoplasm of left kidney, except renal pelvis (principal) | CPT/HCPCS: 99212 ==

== ENCOUNTER 2024-07-27 08:06 | Outpatient (REF) | payer OTHER, SELFPAY ==
--- NOTE | ~2024-07-27 | MM_ITS ---
EXAMINATION: MM SCREENING DIGITAL BREAST TOMOSYNTHESIS, BILATERAL CLINICAL INFORMATION: Screening. Asymptomatic. COMPARISON: Mammography: Comparison is made with available priors TECHNIQUE: Digital breast mammography with tomosynthesis is performed in both the craniocaudal and mediolateral oblique views along with computer-aided detection (CAD). FINDINGS: The breasts are heterogeneously dense, which may obscure small masses (ACR BI-RADS breast composition Category c). There are no significant masses, abnormal calcifications, or other abnormalities. MM/MM tomosynthesis screening BI IMPRESSION: No mammographic evidence of malignancy. ASSESSMENT: BI-RADS BI-RADS 1 - Negative RECOMMENDATION: Routine annual mammography screening. 1 year F/U This examination should not preclude the clinical evaluation of a suspicious palpable abnormality. This patient's information was entered into a reminder system with a target due date for their next mammogram. Electronically signed by: Karen Evans DO 08/02/2024 03:25 PM NELLY
== END 2024-07-27 08:07 | disposition home or self-care (01) ==
LOC: HO.MAMMO 08:06
PROVIDERS: PCP Internal Medicine; Visit Provider Internal Medicine
DX: Z12.31 Encounter for screening mammogram for malignant neoplasm of breast (principal)
CPT/HCPCS: 77063; 77067

== ENCOUNTER → 2024-07-27 08:30 | Outpatient (BNV) | payer OTHER, SELFPAY | PROVIDERS: PCP Internal Medicine; Visit Provider Internal Medicine | DX: Z12.31 Encounter for screening mammogram for malignant neoplasm of breast (principal) | CPT/HCPCS: 77063; 77067 ==

== ENCOUNTER 2024-08-17 10:48 | Outpatient (AMB) | payer OTHER, SELFPAY ==
[2024-08-17 10:49] VITALS: BP 132/70; PULSE 111; O2SAT 97; BMI 24.8
--- NOTE | 2024-08-17 10:49 | A.OFFPC_ITS ---
Vital Signs 08/17/24 10:49 Height 5 ft Weight 127 lb BMI 24.8 BP 132/70 Blood Pressure Location Lt brachial Position Sitting Pulse 111 H Pulse Source Pulse Oximeter Pulse Oximetry (%) 97 Oxygen Delivery Method Room Air Intake Visit Reasons: 4 months f/up Allergies albuterol [ALBUTEROL] Allergy (Unknown, Verified 08/17/24 10:50) HIVES, SHORTNESS OF BREATH, rash hydrocodone [From Vicodin] Allergy (Unknown, Verified 08/17/24 10:50) Hives, Shortness of Breath fluticasone [Flovent Diskus] Adverse Reaction (Unknown, Verified 08/17/24 10:50) shortness of breath and hives and agitation acetaminophen Adverse Reaction (Verified 08/17/24 10:50) Nose Bleed ibuprofen Adverse Reaction (Verified 08/17/24 10:50) Swelling Medication List - Last Reconciled 08/17/24 by Luca Payan MD aspirin 81 mg PO DAILY clotrimazole-betamethasone 1-0.05 % 1 appl topical BID 30 days famotidine 40 mg PO BEDTIME hydrochlorothiazide 25 mg PO QAM 90 days nicotine (Nicoderm CQ) 1 patch transdermal Q24H 30 days nicotine (Nicoderm CQ) 1 patch transdermal Q24H simvastatin 80 mg PO BEDTIME Tobacco use date assessed: 08/17/24 Dental Screening Dental Screen Date: 08/17/24 Did you have a dental visit in the last 12 months?: Yes Did you have a dental problem in the last 6 months where you did not have access to dental care?: No Was dental information given to patient?: Patient has dentist HPI 4 months f/up HPI Details - The patient is a 64-year-old female pr esenting for a four-month follow-up appointment. - Heartburn is managed with famotidine a nd remains stable. - Hypertension is controlled with hydroc hlorothiazide 25 mg daily, with no reported issues. - The patient is on simvastatin 80 mg fo r hyperlipidemia; previous liver enzyme assessments were stable. - The patient smokes five cigarettes ariane ly, experiencing most difficulty with cessation during the evening due to inactivity. - The patient has a tendency to crave ca ndy, which she uses as a substitute for smoking at times. - Back pain is present but is currently under control. - Additional laboratory evaluations were planned post-visit for vitamin D levels. Medications - Famotidine: for heartburn - Hydrochlorothiazide 25 mg: for hyperte nsion - Simvastatin 80 mg: for hyperlipidemia Problem List - Heartburn - Hypertension - Hyperlipidemia - Tobacco use disorder - Back pain Diagnostic results - Labs (March): Kidney functions sat isfactory, liver enzymes stable - Additional lab for vitamin D to be con ducted after this visit Patient Instructions - Increase activity during the evenings to cope with smoking cessation. - Learn to make candied fruits at home a s a hobby to reduce idle time. It will help smoking cessation - Follow up with scheduled vitamin D lev el test. - No need to fast for upcoming lab tests , which can be done before 3:30 PM. - continue medications as prescribed Review of Systems - Respiratory: Denies shortness of breat h - Neurological: Reports back pain as man ageable General: No fever no chills ear nose throat: No sore throat no hearing difficulty no ear pain cardiovascular: No syncope, no chest pain, no palpitations gastrointestinal: No nausea vomiting or diarrhea endocrine: No polyuria polydipsia no heat intolerance genitourinary: No dysuria skin: No new complaints Physical Exam general: No acute distress HEENT: No acute findings neck: Supple respiratory system: Able to talk in full sentences, no audible wheeze, no stridor, no shortness of breath cardiovascular: S1-S2 gastrointestinal: No pain extremities: No new findings 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: Alert awake oriented x3 motor sensory intact skin: Normal turgor PFSH Medical History Tobacco abuse Chronic GERD Hypertension, essential Lipid disorder Surgical History History of esophagogastroduodenoscopy (EGD) Hx of colonoscopy H/O foot surgery History of right salpingo-oophorectomy History of tubal ligation History of tonsillectomy History of laparoscopic appendectomy H/O: hysterectomy Family History Mother Alzheimer's dementia Father Myocardial infarct Social History Household Members Other:: Housing: House Alcohol intake: never Patient Tobacco Use Status: Current everyday Tobacco user Tobacco use type: Cigarette e-Cigarette/Vaping Use: Never Used service: No Current occupational status: employed 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 Cognitive needs: No Hearing needs: No Vision needs: No Questionnaire PHQ-9 Over the last 2 weeks, how often have you been bothered by any of the following problems? 1. Little interest or pleasure in doing things: not at all 2. Feeling down, depressed, or hopeless: not at all 3. Trouble falling or staying asleep, or sleeping too much: not at all 4. Feeling tired or having little energy: not at all 5. Poor appetite or overeating: not at all 6. Feeling bad about yourself - or that you are a failure or have let yourself or your family down: not at all 7. Trouble concentrating on things, such as reading the newspaper or watching television: not at all 8. Moving or speaking so slowly that other people could have noticed. Or the opposite - being so fidgety or restless that you have been moving around a lot more than usual: not at all 9. Thoughts that you would be better off or of hurting yourself in some way: not at all Total score: 0 Depression Screening Interpretation: Negative Depression Screening Done: Yes 08021 - PHQ-9 Billing: Yes Source: Developed by Drs. Venkat Sparrow, Cyn Douglass, Giovanni Diaz and colleagues, with an educational susan from [employer]. Thrive Questionnaire Date Thrive assessed: 08/17/24 I am a: Patient What is your living situation today?: I have a steady place to live Within the past 12 months, did the food you bought not last and you didn't have the money to get more?: Never true Within the past 12 months, did you worry whether your food would run out before you got money to buy more?: Never true Do you have trouble paying for medicines?: No Do you have trouble getting transportation to medical appointments?: No Do you have trouble paying your heating and electricity bill?: No Do you have trouble taking care of your child, family member or friend?: No Do you have trouble with day-to-day activities such as bathing, preparing meals, shopping, managing finances, etc.?: No Are you currently unemployed and looking for a job?: No Are you interested in more education?: No Please select the resources that you would like help with: None Currently or been in a relationship where the following occur: No concerns reported THRIVE Score: 0 AUDIT C Alcohol Use Questionnaire (AUDIT-C) 1. How often do you have a drink containing alcohol?: 2-4 times a month 2. How many drinks containing alcohol do you have on a typical day when you are drinking?: 1 or 2 3. How often do you have six or more drinks on one occasion?: Never Total Score: 2 Score Reviewed/Action Taken: Yes RAUDEL-7 AMB Questionnaire RAUDEL-7 Date RAUDEL - 7 assessed: 08/17/24 Feeling nervous, anxious, or on edge: 0 = Not at all Not being able to stop or control worryin = Not at all Worrying too much about different things: 0 = Not at all Trouble relaxin = Not at all Being so restless that it is hard to sit still: 0 = Not at all Becoming easily annoyed or irritable: 0 = Not at all Feeling afraid as if something awful might happen: 0 = Not at all Total RAUDEL-7 score (0-4 normal; 5-9 mild; 10-14 moderate; 15-21 severe): 0 Source: Developed by Drs. Venkat Sparrow, Cyn Douglass, Giovanni Diaz and colleagues, with an educational susan from [employer]. RAUDEL-7 Assessment Billing RAUDEL-7 Assessment Tool: RAUDEL-7 Assessment 20682 Physical exam (Primary Care) Vital Signs: Last Vital Signs Pulse 111 H 08/17/24 10:49 BP 132/70 08/17/24 10:49 Pulse Ox 97 08/17/24 10:49 Oxygen Delivery Method Room Air 08/17/24 10:49 BMI result Body Mass Index 24.8 Tobacco/Smoking Status: Tobacco use Status Tobacco use date assessed 08/17/24 08/17/24 10:53 Patient Tobacco Use Status Current everyday Tobacco 08/17/24 10:53 Tobacco use type Cigarette 08/17/24 10:53 e-Cigarette/Vaping Use Never Used 08/17/24 10:53 PHQ-9: PHQ-9 Score PHQ-9: Total score 0 08/17/24 11:11 Depression Screening Interpretation: Negative Thrive Assessment: Date of Thrive Assessment Date Thrive assessed 08/17/24 08/17/24 10:53 Currently or been in a relationship where the following occur: No concerns reported Coding Level of Care Code Est Pt Level 4 (84621) Complex EM visit Add On G2211 Diagnoses Hypertension, essential I10 Lipid disorder E78.9 Chronic GERD K21.9 Tobacco abuse Z72.0 Additional Codes RAUDEL-7 Assessment Billing - RAUDEL-7 Assessment Tool: RAUDEL-7 Assessment 09819 ([id number]) PHQ-9 - 07245 - PHQ-9 Billing: Yes ([id number]) Assessment & Plan Assessment & Plan (1) Hypertension, essential: Code(s): I10 - Essential (primary) hypertension Category: Medical (2) Lipid disorder: Code(s): E78.9 - Disorder of lipoprotein metabolism, unspecified Category: Medical (3) Chronic GERD: Comment: omeprazole- not working Continue famotidine 40 at HS avoid culprits Code(s): K21.9 - Gastro-esophageal reflux disease without esophagitis Category: Medical (4) Tobacco abuse: Code(s): Z72.0 - Tobacco use Category: Medical Plan - The patient is a 64-year-old female presenting for a four-month follow-up appointment. - Heartburn is managed with famotidine and remains stable. - Hypertension is controlled with hydrochlorothiazide 25 mg daily, with no reported issues. - The patient is on simvastatin 80 mg for hyperlipidemia; previous liver enzyme assessments were stable. - The patient smokes five cigarettes daily, experiencing most difficulty with cessation during the evening due to inactivity. - The patient has a tendency to crave candy, which she uses as a substitute for smoking at times. - Back pain is present but is currently under control. - Additional laboratory evaluations were planned post-visit for vitamin D levels. Medications - Famotidine: for heartburn - Hydrochlorothiazide 25 mg: for hypertension - Simvastatin 80 mg: for hyperlipidemia Problem List - Heartburn - Hypertension - Hyperlipidemia - Tobacco use disorder - Back pain Diagnostic results - Labs (March): Kidney functions satisfactory, liver enzymes stable - Additional lab for vitamin D to be conducted after this visit Patient Instructions - Increase activity during the evenings to cope with smoking cessation. - Learn to make candied fruits at home as a hobby to reduce idle time. It will help smoking cessation - Follow up with scheduled vitamin D level test. - No need to fast for upcoming lab tests, which can be done before 3:30 PM. - continue medications as prescribed Orders: Orders Complete Blood Count Auto Diff Today E78.9 - Disorder of lipoprotein metabolism, unspecified, I10 - Essential (primary) hypertension, K21.9 - Gastro- esophageal reflux disease without esophagitis, Z72.0 - Tobacco use LDL Cholesterol Direct Today E78.9 - Disorder of lipoprotein metabolism, unspecified, I10 - Essential (primary) hypertension, K21.9 - Gastro-esophageal reflux disease without esophagitis, Z72.0 - Tobacco use Comprehensive Met. Panel Today E78.9 - Disorder of lipoprotein metabolism, unspecified, I10 - Essential (primary) hypertension, K21.9 - Gastro-esophageal reflux disease without esophagitis, Z72.0 - Tobacco use Vitamin D 25-OH (D2 and D3) Today E78.9 - Disorder of lipoprotein metabolism, unspecified, I10 - Essential (primary) hypertension, K21.9 - Gastro-esophageal reflux disease without esophagitis, Z72.0 - Tobacco use
== END 2024-08-17 11:13 | disposition home or self-care (01) ==
PROVIDERS: PCP Internal Medicine; Visit Provider Internal Medicine
DX: I10 Essential (primary) hypertension (principal); E78.9 Disorder of lipoprotein metabolism, unspecified; K21.9 Gastro-esophageal reflux disease without esophagitis; Z72.0 Tobacco use

== ENCOUNTER → 2024-08-17 10:48 | Outpatient (BNVA) | payer OTHER, SELFPAY | PROVIDERS: PCP Internal Medicine; Visit Provider Internal Medicine | DX: I10 Essential (primary) hypertension (principal); E78.9 Disorder of lipoprotein metabolism, unspecified; K21.9 Gastro-esophageal reflux disease without esophagitis; Z72.0 Tobacco use | CPT/HCPCS: 96127; 99212 ==

== ENCOUNTER 2024-08-19 13:47 | Outpatient (REF) | payer OTHER, SELFPAY ==
[2024-08-19 16:09] LABS: MANUAL DIFF FLAG NO
[2024-08-19 16:15] LABS: Basophils Absolute Auto 0.1 X10*3/uL (0.0-0.2); Basophils Percent Auto 1.2 % (0-2); Eosinophils Absolute Auto 0.3 X10*3/uL (0.0-0.4); Eosinophils Percent Auto 5.4 % (0-4); Hematocrit 31.4 % (37.0-47.0); Hemoglobin 10.1 g/dl (12.0-16.0); Lymphocytes Absolute Auto 1.9 X10*3/uL (1.2-4.9); Lymphocytes Percent Auto 39.1 % (20-40); Mean Corpuscular HGB Conc 32.2 g/dl (31.0-35.0); Mean Corpuscular Hemoglobin 28.8 pg (27.0-33.0); Mean Corpuscular Volume 89.5 fL (80.0-98.0); Mean Platelet Volume 9.9 fL (9.4-12.3); Monocytes Absolute Auto 0.5 X10*3/uL (0.1-1.2); Neutrophils Absolute Auto 2.1 x10*3/uL (2.0-8.3); Neutrophils Percent Auto 44.3 % (45-73); Platelet Count 370 X10*3/uL (160-400); Red Blood Count 3.51 X10*6/uL (4.20-5.50); Red Cell Distribution Width 13.2 % (11.0-16.0); White Blood Count 4.8 X10*3/uL (4.8-10.8)
[2024-08-19 18:48] LABS: Alanine Aminotransferase 13 U/L (0-31); Albumin Level 3.9 g/dL (3.5-5.0); Alkaline Phosphatase 92 U/L (39-117); Anion Gap 14 (12-20); Aspartate Amino Transferase 32 U/L (5-31); Bilirubin Total 0.3 mg/dL (0.0-1.0); Blood Urea Nitrogen 12 mg/dL (9-16); Calcium 9.4 mg/dL (8.4-10.2); Carbon Dioxide 23 mmol/L (22-29); Chloride 101 mmol/L (96-108); Estimated Glomerular Filt Rate > 60; Glucose Random 85 mg/dL (60-115); Potassium 3.2 mmol/L (3.3-5.1); Sodium 135 mmol/L (135-145); Total Protein 7.7 g/dL (6.5-8.0)
[2024-08-20 16:33] LABS: LDL Cholesterol Direct 85 mg/dL (<100)
[2024-08-25 18:34] LABS: Vitamin D 25-OH, D2 <4 ng/mL; Vitamin D 25-OH, D3 13 ng/mL; Vitamin D 25-OH, Total 13 ng/mL (30-100)
== END 2024-08-19 13:48 | disposition home or self-care (01) ==
LOC: HO.HMGCLDS 13:47
PROVIDERS: PCP Internal Medicine; Visit Provider Internal Medicine
DX: I10 Essential (primary) hypertension (principal); E78.9 Disorder of lipoprotein metabolism, unspecified; K21.9 Gastro-esophageal reflux disease without esophagitis; Z72.0 Tobacco use
CPT/HCPCS: 36415; 80053; 82306; 83721; 85025

== ENCOUNTER 2024-09-26 20:01 | Emergency (ER) | payer OTHER, SELFPAY ==
--- NOTE | ~2024-09-26 | XR_ITS ---
CLINICAL HISTORY: pneumonia? 1 view chest x-ray Comparison: None Findings: Airspace consolidations in the right lung base. Heart size is normal. No acute fracture. IMPRESSION: Pneumonia in the right lung base. This document has been electronically signed by: Conor Rg MD on 09/26/2024 21:49:13
[2024-09-26 20:29] VITALS: BP 140/67; PULSE 105; RESP 18; TEMP 36.8; O2SAT 98; BMI 22.9
--- NOTE | 2024-09-26 20:33 | ED.GENADULT ---
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 Related Data Previous Rx's ?Medication ?Instructions ?Recorded nicotine 7 mg/24 hr daily 1 patch transdermal Q24H 30 days 10/23/21 transdermal patch (Nicoderm CQ) #30 ea clotrimazole-betamethasone 1 1 appl topical BID 30 days #60 04/09/23 %-0.05 % topical cream grams nicotine 7 mg/24 hr daily 1 patch transdermal Q24H #14 ea 12/10/23 transdermal patch (Nicoderm CQ) ferrous sulfate 324 mg (65 mg 324 mg PO BID 90 days #180 tabs 08/20/24 iron) tablet,delayed release famotidine 40 mg tablet 40 mg PO BEDTIME #90 tabs 09/24/24 hydrochlorothiazide 25 mg tablet 25 mg PO QAM 90 days #90 tabs 09/24/24 aspirin 81 mg tablet,delayed 81 mg PO DAILY #90 tabs 09/27/24 release cefuroxime axetil 500 mg tablet 500 mg PO BID 10 days #20 tabs 09/27/24 doxycycline hyclate 100 mg tablet 100 mg PO BID #20 tabs 09/27/24 guaifenesin 600 mg tablet, 600 mg PO BID #20 tabs 09/27/24 extended release 12 hr (Mucinex) potassium chloride 10 mEq 10 meq PO DAILY #10 caps 09/27/24 capsule,extended release simvastatin 80 mg tablet 80 mg PO BEDTIME #90 tabs 09/27/24 Allergies Allergy/AdvReac Type Severity Reaction Status Date / Time albuterol [ALBUTEROL] Allergy Unknown HIVES, Verified 09/26/24 20:32 SHORTNESS OF BREATH, rash hydrocodone [From Vicodin] Allergy Unknown Hives, Verified 09/26/24 20:32 Shortness of Breath fluticasone [Flovent Diskus] AdvReac Unknown shortness Verified 09/26/24 20:32 of breath and hives and agitation acetaminophen AdvReac Nose Bleed Verified 09/26/24 20:32 ibuprofen AdvReac Swelling Verified 09/26/24 20:32 Review of Systems Review of Systems: Yes all other systems are reviewed and are negative [facility] Past Medical History Medical History Tobacco abuse Chronic GERD Hypertension, essential Lipid disorder Surgical History History of esophagogastroduodenoscopy (EGD) Hx of colonoscopy H/O foot surgery History of right salpingo-oophorectomy History of tubal ligation History of tonsillectomy History of laparoscopic appendectomy H/O: hysterectomy Family History Family History Mother Alzheimer's dementia Father Myocardial infarct Social History Social History Household Members Other:: Housing: House Alcohol intake: never Patient Tobacco Use Status: Current everyday Tobacco user Tobacco use type: Cigarette Smoked in Last 30 Days: Yes e-Cigarette/Vaping Use: Never Used Use of substances other than those prescribed or required for medical reasons: No Advance Directives: No Advance Directives Information Provided: Yes service: No Current occupational status: employed 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 Cognitive needs: No Hearing needs: No Vision needs: No Physical Exam ED Vital Signs: Vital Signs - 24 hr 09/26/24 23:47 09/27/24 01:37 Temperature 97.3 F 97.3 F Pulse Rate 90 90 Respiratory Rate 16 16 Blood Pressure 147/63 H 147/63 H Pulse Oximetry 98 98 Oxygen Delivery Method Room Air Room Air BMI result Body Mass Index 22.9 Appearance: Alert. Oriented X3. No acute distress. Eyes: PERRLA, No Nystagmus ENT: Pharynx normal. Oral Mucosa moist Neck: Normal inspection. Neck supple. CVS: Normal heart rate and rhythm. Pulses normal. Respiratory: No respiratory distress. Equal air entry bilateral, coarse crackles in the right lower lobe Abdomen: Soft and nontender. Bowel sounds are present, no mass palpable, no CVA tenderness Skin: Skin warm and dry. Normal skin color. Normal skin turgor. Extremities: No lower extremity edema. No calf tenderness Neuro: Oriented X 3. No motor deficit. Course Course Course Narrative: RME: 64 yold female presents to the ED for URI symptosm. 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 Patient states coughing, sore throat, and right sided rib pain. SARS/Strep ordered Medications Administered Discontinued Medications Generic Name Dose Route Start Last Admin Trade Name Goldq PRN Reason Stop Dose Admin Cefuroxime Axetil 500 mg 09/26/24 23:39 09/26/24 23:46 Cefuroxime Axetil 500 Mg Tablet PO 09/26/24 23:40 500 mg ONCE ONE Administration Doxycycline Monohydrate 100 mg 09/26/24 23:39 09/26/24 23:46 Doxycycline Monohydrate 100 Mg Capsule PO 09/26/24 23:40 100 mg ONCE ONE Administration Potassium Bicarbonate 50 meq 09/26/24 23:39 09/26/24 23:46 Potassium Bicarbonate/Cit Ac 25 Meq Tablet.Eff PO 09/26/24 23:40 50 meq ONCE ONE Administration Medical Decision Making Medical Decision Making [facility] Narrative: Patient with right lower lobe pneumonia chronic smoker will prescribe cefuroxime and doxycycline white counts are normal noted to have low potassium of 2.9 etiology not clear patient did have similar low potassium in the past will give p.o. potassium EKG without any hypokalemic changes Lab Data [facility] Lab Attestation statement: I reviewed the patient's lab results. 09/26/24 23:17 09/26/24 23:17 Labs: Lab Results 09/26/24 09/26/24 Range/Units 21:03 23:17 WBC 8.4 (4.8-10.8) X10*3/uL RBC 3.57 L (4.20-5.50) X10*6/uL Hgb 10.8 L (12.0-16.0) g/dl Hct 31.8 L (37.0-47.0) % MCV 89.1 (80.0-98.0) fL MCH 30.3 (27.0-33.0) pg MCHC 34.0 (31.0-35.0) g/dl RDW 14.6 (11.0-16.0) % Plt Count 450 H (160-400) X10*3/uL MPV 8.5 L (9.4-12.3) fL Immature Gran % (Auto) 0.6 H (0.0-0.4) % Neut % (Auto) 64.0 (45-73) % Lymph % (Auto) 17.7 L (20-40) % [place] % (Auto) 14.7 H (2-11) % Eos % (Auto) 2.4 (0-4) % Baso % (Auto) 0.6 (0-2) % Lymph # (Auto) 1.5 (1.2-4.9) X10*3/uL [place] # (Auto) 1.2 (0.1-1.2) X10*3/uL Eos # (Auto) 0.2 (0.0-0.4) X10*3/uL Baso # (Auto) 0.1 (0.0-0.2) X10*3/uL Abs Immat Gran (auto) 0.05 H (0.00-0.03) X10*3/uL Absolute Neuts (auto) 5.4 (2.0-8.3) x10*3/uL Absolute Nucleated RBC 0.000 (0.0-0.012) X10*3/uL Nucleated RBC % (auto) 0.0 (0.0-0.2) /100WBC Sodium 132 L (135-145) mmol/L Potassium 2.9 L* (3.3-5.1) mmol/L Chloride 94 L (96-108) mmol/L Carbon Dioxide 26 (22-29) mmol/L Anion Gap 15 (12-20) BUN 11 (9-16) mg/dL Creatinine 0.73 (0.5-1.4) mg/dL Estim Creat Clear Calc 56.6 Estimated GFR > 60 Random Glucose 98 (60-115) mg/dL Calcium 8.9 (8.4-10.2) mg/dL Influenza Type A (PCR) NEGATIVE (Negative) Influenza Type B (PCR) NEGATIVE (Negative) RSV RNA Qual (PCR) NEGATIVE (Negative) SARS-CoV-2 RNA (RT-PCR) NEGATIVE (Negative) S. pyogenes GrpA ELLIOTT Negative (Negative) Radiology Impression Discussion of test interpretation with radiology: I have reviewed the radiologist's reading. Radiologist Impression: Diagnostics Reports Shagufta Glasgow??64??F??1960 ? Allergy/Adv: albuterol, hydrocodone, fluticasone, acetaminophen, ibuprofen (More??) Close Chest X-Ray (Signed) MiguelConor jacob - 09/26/24 Mammogram Screening (Signed) CristinaKaren - 07/27/24 Abdomen MRI (Signed) Jose Kruger - 06/14/24 Mammogram Screening (Signed) Prieto Faye - 07/18/23 Renal Ultrasound (Signed) Anna Cruz - 06/16/23 Pelvis X-Ray (Signed) Juan Ramon Parham - 06/06/23 Lumbar Spine X-Ray (Signed) Mariusz Royal - 04/23/23 Hip X-Ray (Signed) Mariusz Royal - 04/23/23 Breast Ultrasound (Signed) Solo Mosqueda - 07/31/22 Mammogram, Additional Views (Signed) Solo Mosqueda - 07/31/22 Mammogram Screening (Signed) Solo Mosqueda - 07/16/[address] (Signed) Orlando Morrisnal - 04/04/22 Elbow X-Ray (Signed) Orlando Morrisnal - 01/16/22 Renal Ultrasound (Signed) Orlando Morrisnal - 08/27/21 Mammogram Screening (Signed) Mariusz Armstrong - 07/09/21 Diagnostic Report, External 04/26/21 Diagnostic Report, External 04/26/21 Diagnostic Report, External 10/09/20 Mammogram Screening (Signed) Mariusz Armstrong - 07/03/20 Launch?Image [place] [id number] XRay Report Signed Patient: Shagufta Glasgow MR#: [id number] : 1960 Acct:[id number] Age/Sex: 64 / F ADM Date: 09/26/24 Loc: .ED Attending Dr: Ordering Physician: Emilio Becker Date of Service: 09/26/24 Procedure(s): XR chest 1V Accession Number(s): [id number] cc: Emilio Becker; Luca Payan MD~ CLINICAL HISTORY: pneumonia? 1 view chest x-ray Comparison: None Findings: Airspace consolidations in the right lung base. Heart size is normal. No acute fracture. IMPRESSION: Pneumonia in the right lung base. This document has been electronically signed by: Conor Rg MD on 09/26/2024 21:49:13 Discharge Plan Discharge Clinical Impression: Pneumonia Patient Disposition: Home, Self-Care Instructions: Community Acquired Pneumonia (ED) Additional Instructions: Take antibiotics as prescribed Follow up with PCP if not better or report to the ER if high fever/shortness a breath Stop smoking Have food containing more potassium like oranges/bananas/coconut water Follow up with your PCP to recheck your potassium levels in 1 week. it was 2.9 today Prescriptions: New cefuroxime axetil 500 mg tablet 500 mg PO BID 10 Days Qty: 20 0RF doxycycline hyclate 100 mg tablet 100 mg PO BID Qty: 20 0RF guaifenesin [Mucinex] 600 mg tablet extended release 12hr 600 mg PO BID Qty: 20 0RF potassium chloride 10 mEq capsule, extended release 10 meq PO DAILY Qty: 10 0RF No Action nicotine [Nicoderm CQ] 7 mg/24 hr patch 24 hour 1 patch transdermal Q24H 30 Days Qty: 30 1RF ferrous sulfate 324 mg (65 mg iron) tablet,delayed release (DR/EC) 324 mg PO BID 90 Days Qty: 180 0RF hydrochlorothiazide 25 mg tablet 25 mg PO QAM 90 Days Qty: 90 1RF famotidine 40 mg tablet 40 mg PO BEDTIME Qty: 90 1RF simvastatin 80 mg tablet 80 mg PO BEDTIME Qty: 90 0RF aspirin 81 mg tablet,delayed release (DR/EC) 81 mg PO DAILY Qty: 90 3RF clotrimazole-betamethasone 1-0.05 % cream 1 appl topical BID 30 Days Qty: 60 1RF nicotine [Nicoderm CQ] 7 mg/24 hr patch 24 hour 1 patch transdermal Q24H Qty: 14 3RF Stand Alone Forms: Work/School Release Interventions: ED Discharge Assessment Last Done: 09/27/24 01:37 Discharge Date/Time: 09/27/24 01:38 Print Language: Occitan
[2024-09-26 21:21] LABS: IDNOW Serial# 58CA691E; Strep A Nucleic Acid Negative (Negative)
[2024-09-26 21:54] LABS: Influenza A PCR NEGATIVE (Negative); Influenza B PCR NEGATIVE (Negative); Resp Syncy Virus RNA Qual PCR NEGATIVE (Negative); SARS COV2 PCR INHOUSE NEGATIVE (Negative)
[2024-09-26 23:21] LABS: MANUAL DIFF FLAG NO
[2024-09-26 23:23] LABS: Basophils Absolute Auto 0.1 X10*3/uL (0.0-0.2); Basophils Percent Auto 0.6 % (0-2); Eosinophils Absolute Auto 0.2 X10*3/uL (0.0-0.4); Eosinophils Percent Auto 2.4 % (0-4); Hematocrit 31.8 % (37.0-47.0); Hemoglobin 10.8 g/dl (12.0-16.0); Imm Gran Abs Auto 0.05 X10*3/uL (0.00-0.03); Imm Gran Pct Auto 0.6 % (0.0-0.4); Lymphocytes Absolute Auto 1.5 X10*3/uL (1.2-4.9); Lymphocytes Percent Auto 17.7 % (20-40); Mean Corpuscular Hemoglobin 30.3 pg (27.0-33.0); Mean Corpuscular Volume 89.1 fL (80.0-98.0); Mean Platelet Volume 8.5 fL (9.4-12.3); Monocytes Absolute Auto 1.2 X10*3/uL (0.1-1.2); Monocytes Percent Auto 14.7 % (2-11); Neutrophils Absolute Auto 5.4 x10*3/uL (2.0-8.3); Platelet Count 450 X10*3/uL (160-400); Red Blood Count 3.57 X10*6/uL (4.20-5.50); Red Cell Distribution Width 14.6 % (11.0-16.0); White Blood Count 8.4 X10*3/uL (4.8-10.8)
[2024-09-26 23:37] LABS: Anion Gap 15 (12-20); Blood Urea Nitrogen 11 mg/dL (9-16); Calcium 8.9 mg/dL (8.4-10.2); Carbon Dioxide 26 mmol/L (22-29); Chloride 94 mmol/L (96-108); Creatinine Clr Calc Pharmacy 56.6; Estimated Glomerular Filt Rate > 60; Glucose Random 98 mg/dL (60-115); Potassium 2.9 mmol/L (3.3-5.1); Sodium 132 mmol/L (135-145)
[2024-09-26] MEDS: cefuroxime axetiL 500 MG TABLET PO (23:46)
[2024-09-26] MEDS: Potassium Bicarbonate/Cit AC 25 MEQ TABLET.EFF 50 MEQ PO (23:46)
[2024-09-26] MEDS: Doxycycline Monohydrate 100 MG CAPSULE PO (23:46)
[2024-09-26 23:47] VITALS: BP 147/63; PULSE 90; RESP 16; TEMP 36.3; O2SAT 98
--- NOTE | 2024-09-26 23:53 | ECG_ITS ---
Test Reason : hyperkalemia Blood Pressure : */* mmHG Vent. Rate : 90 BPM Atrial Rate : 90 BPM P-R Int : 162 ms QRS Dur : 64 ms QT Int : 348 ms P-R-T Axes : 86 60 54 degrees QTcB Int : 425 ms Normal sinus rhythm Possible Left atrial enlargement Borderline ECG No previous ECGs available Referred By: Neri Angel Electronically Signed By: FERNANDA ORTIZ
[2024-09-27 01:37] VITALS: BP 147/63; PULSE 90; RESP 16; TEMP 36.3; O2SAT 98
== END 2024-09-27 01:38 | disposition home or self-care (01) ==
PROVIDERS: Physician Assistant; Emergency Provider Internal Medicine; PCP Internal Medicine
DX: J18.9 Pneumonia, unspecified organism (principal); R05.9 Cough, unspecified; E87.5 Hyperkalemia; R07.89 Other chest pain; Z03.818 Encounter for observation for suspected exposure to other biological agents ruled out; Z79.899 Other long term (current) drug therapy
CPT/HCPCS: 0241U; 36415; 71045; 80048; 85025; 87651; 93005; 99283; 99284

== ENCOUNTER → 2024-09-26 20:33 | Outpatient (BNV) | payer OTHER, SELFPAY | PROVIDERS: PCP Internal Medicine; Visit Provider Student in an Organized Health Care Education/Training Program | DX: J18.9 Pneumonia, unspecified organism (principal) | CPT/HCPCS: 71045 ==

== ENCOUNTER → 2024-09-26 23:53 | Outpatient (BNV) | payer OTHER, SELFPAY | PROVIDERS: Emergency Provider Internal Medicine; PCP Internal Medicine; Visit Provider Internal Medicine | DX: E87.5 Hyperkalemia (principal) | CPT/HCPCS: 93010 ==

== ENCOUNTER 2024-10-08 14:02 | Outpatient (AMB) | payer OTHER, SELFPAY ==
--- NOTE | 2024-10-08 14:15 | A.OFFPC_ITS ---
Vital Signs 10/08/24 14:22 Height 5 ft Weight 125 lb BMI 24.4 BP 130/70 Blood Pressure Location Lt brachial Position Sitting Pulse 93 Pulse Source Pulse Oximeter Pulse Oximetry (%) 98 Intake Visit Reasons: [facility] [place] Fur Plucker Required: No Accompanied by: Self / Same As Patient Allergies albuterol [ALBUTEROL] Allergy (Unknown, Verified 10/08/24 14:22) HIVES, SHORTNESS OF BREATH, rash hydrocodone [From Vicodin] Allergy (Unknown, Verified 10/08/24 14:22) Hives, Shortness of Breath fluticasone [Flovent Diskus] Adverse Reaction (Unknown, Verified 10/08/24 14:22) shortness of breath and hives and agitation acetaminophen Adverse Reaction (Verified 10/08/24 14:22) Nose Bleed ibuprofen Adverse Reaction (Verified 10/08/24 14:22) Swelling Medication List - Last Reconciled 10/08/24 by Luca Payan MD aspirin 81 mg PO DAILY cefuroxime axetil 500 mg PO BID 10 days clotrimazole-betamethasone 1-0.05 % 1 appl topical BID 30 days doxycycline hyclate 100 mg PO BID famotidine 40 mg PO BEDTIME ferrous sulfate 324 mg PO BID 90 days guaifenesin ER (Mucinex) 600 mg PO BID hydrochlorothiazide 25 mg PO QAM 90 days nicotine (Nicoderm CQ) 1 patch transdermal Q24H simvastatin 80 mg PO BEDTIME Tobacco use date assessed: 08/17/24 Dental Screening Dental Screen Date: 08/17/24 HPI [facility] [place] HPI Details Patient is a 64-year-old female who was at [facility] 9th of this month with a chief complaint of productive cough of 3 weeks' duration and right lower chest pain Patient is chronic smoker On examination patient had coarse crackles right lower lobe She was found to be anemic with a hemoglobin of 10.8 Her potassium was 2.9 Chest x-ray showed pneumonia right lung base Patient was discharged home with a script of cefuroxime 20 tablets to be taken b.i.d. Doxycycline 20 tablets to be taken b.i.d. Potassium chloride And guaifenesin She will need repeat labs today She finished the potassium supplement, still have 3 more days of antibiotics Feeling better cough has improved However patient has started smoking again once again encouraged to stop We will repeat chest x-ray again in 4 weeks [facility] Medical History Tobacco abuse Chronic GERD Hypertension, essential Lipid disorder Surgical History History of esophagogastroduodenoscopy (EGD) Hx of colonoscopy H/O foot surgery History of right salpingo-oophorectomy History of tubal ligation History of tonsillectomy History of laparoscopic appendectomy H/O: hysterectomy Family History Mother Alzheimer's dementia Father Myocardial infarct Social History Household Members Other:: Housing: House Alcohol intake: never Patient Tobacco Use Status: Current everyday Tobacco user Tobacco use type: Cigarette e-Cigarette/Vaping Use: Never Used service: No Current occupational status: employed 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 Cognitive needs: No Hearing needs: No Vision needs: No Questionnaire Thrive Questionnaire Date Thrive assessed: 08/14/24 I am a: Patient What is your living situation today?: I have a steady place to live Within the past 12 months, did the food you bought not last and you didn't have the money to get more?: Never true Within the past 12 months, did you worry whether your food would run out before you got money to buy more?: Never true Do you have trouble paying for medicines?: No Do you have trouble getting transportation to medical appointments?: No Do you have trouble paying your heating and electricity bill?: No Do you have trouble taking care of your child, family member or friend?: No Do you have trouble with day-to-day activities such as bathing, preparing meals, shopping, managing finances, etc.?: No Are you currently unemployed and looking for a job?: No Are you interested in more education?: No Please select the resources that you would like help with: None Currently or been in a relationship where the following occur: No concerns reported THRIVE Score: 0 RAUDEL-7 AMB Questionnaire RAUDEL-7 Date RAUDEL - 7 assessed: 08/17/24 Source: Developed by Drs. Venkat Sparrow, Cyn Douglass, Giovanni Diaz and colleagues, with an educational susan from [employer]. Review of Systems Const Denies chills and Denies fever(s) ENT Denies epistaxis and Denies nasal discharge Card Denies chest pain Resp Denies hemoptysis GI Denies diarrhea and Denies nausea Skin/Breast Denies rash Neuro Reports no additional complaints Psych Reports no additional complaints Endo Reports no additional complaints Physical exam (Primary Care) Vital Signs: Last Vital Signs Pulse 93 10/08/24 14:22 BP 130/70 10/08/24 14:22 Pulse Ox 98 10/08/24 14:22 BMI result Body Mass Index 24.4 Tobacco/Smoking Status: Tobacco use Status Tobacco use date assessed 08/17/24 10/08/24 14:17 Patient Tobacco Use Status Current everyday Tobacco 10/08/24 14:17 Tobacco use type Cigarette 10/08/24 14:17 e-Cigarette/Vaping Use Never Used 10/08/24 14:17 Thrive Assessment: Date of Thrive Assessment Date Thrive assessed 08/14/24 10/08/24 14:17 Currently or been in a relationship where the following occur: No concerns reported Const General: cooperative, comfortable and no acute distress Orientation/consciousness: patient oriented x3 HENMT Head: Yes normocephalic Eyes General: appearance normal, both eyes and all related structures Neck Neck: Yes supple Resp Effort & Inspection: normal respiratory effort, no cough and no stridor Cardio Rhythm: regular rhythm Heart sounds: S1 normal heart sound present and S2 normal heart sound present Skin General skin exam: turgor normal Neuro General: patient oriented x3, tone normal and moves all extremities Extrem Right lower extremity: no edema Left lower extremity: no edema Coding Level of Care Code Est Pt Level 4 (58044) Diagnoses Pneumonia of right lower lobe due to infectious organism J18.9 Pneumonia type: due to unspecified organism Low blood potassium E87.6 Iron deficiency anemia due to chronic blood loss D50.0 Iron deficiency anemia type: chronic blood loss Cigarette nicotine dependence without complication F17.210 Nicotine product type: cigarettes Substance use status: uncomplicated Assessment & Plan Assessment & Plan (1) Right lower lobe pneumonia: Code(s): J18.9 - Pneumonia, unspecified organism Category: Medical Qualifiers: Pneumonia type: due to unspecified organism Qualified Code(s): J18.9 - Pneumonia, unspecified organism (2) Low blood potassium: Code(s): E87.6 - Hypokalemia Category: Medical (3) Iron deficiency anemia: Code(s): D50.9 - Iron deficiency anemia, unspecified Category: Medical Qualifiers: Iron deficiency anemia type: chronic blood loss Qualified Code(s): D50.0 - Iron deficiency anemia secondary to blood loss (chronic) (4) Nicotine dependence: Code(s): F17.200 - Nicotine dependence, unspecified, uncomplicated Category: Medical Qualifiers: Nicotine product type: cigarettes Substance use status: uncomplicated Qualified Code(s): F17.210 - Nicotine dependence, cigarettes, uncomplicated Plan Patient is a 64-year-old female who was at [facility] 9th of this month with a chief complaint of productive cough of 3 weeks' duration and right lower chest pain Patient is chronic smoker On examination patient had coarse crackles right lower lobe She was found to be anemic with a hemoglobin of 10.8 Her potassium was 2.9 Chest x-ray showed pneumonia right lung base Patient was discharged home with a script of cefuroxime 20 tablets to be taken b.i.d. Doxycycline 20 tablets to be taken b.i.d. Potassium chloride And guaifenesin She will need repeat labs today She finished the potassium supplement, still have 3 more days of antibiotics Feeling better cough has improved However patient has started smoking again once again encouraged to stop We will repeat chest x-ray again in 4 weeks Orders: Orders Basic Metabolic Panel Today D50.0 - Iron deficiency anemia secondary to blood loss (chronic), E87.6 - Hypokalemia XR chest 2V 4 Weeks J18.9 - Pneumonia, unspecified organism Hemoglobin Today D50.0 - Iron deficiency anemia secondary to blood loss (chronic), E87.6 - Hypokalemia Hemoglobin A1c Today D50.0 - Iron deficiency anemia secondary to blood loss (chronic), E87.6 - Hypokalemia Ferritin Today D50.0 - Iron deficiency anemia secondary to blood loss (chronic), E87.6 - Hypokalemia
[2024-10-08 14:22] VITALS: BP 130/70; PULSE 93; O2SAT 98; BMI 24.4
== END 2024-10-08 15:16 | disposition home or self-care (01) ==
PROVIDERS: PCP Internal Medicine; Visit Provider Internal Medicine
DX: J18.9 Pneumonia, unspecified organism (principal); E87.6 Hypokalemia; D50.0 Iron deficiency anemia secondary to blood loss (chronic); F17.210 Nicotine dependence, cigarettes, uncomplicated

== ENCOUNTER 2024-10-08 14:02 | Outpatient (REF) | payer OTHER, SELFPAY ==
[2024-10-08 16:10] LABS: MANUAL DIFF FLAG NO
[2024-10-08 16:34] LABS: Basophils Absolute Auto 0.1 X10*3/uL (0.0-0.2); Basophils Percent Auto 1.3 % (0-2); Eosinophils Absolute Auto 0.3 X10*3/uL (0.0-0.4); Eosinophils Percent Auto 6.1 % (0-4); Hematocrit 31.6 % (37.0-47.0); Hemoglobin 10.1 g/dl (12.0-16.0); Imm Gran Abs Auto 0.03 X10*3/uL (0.00-0.03); Imm Gran Pct Auto 0.6 % (0.0-0.4); Lymphocytes Percent Auto 36.5 % (20-40); Mean Corpuscular Hemoglobin 30.1 pg (27.0-33.0); Mean Corpuscular Volume 94.3 fL (80.0-98.0); Mean Platelet Volume 8.4 fL (9.4-12.3); Monocytes Absolute Auto 0.6 X10*3/uL (0.1-1.2); Monocytes Percent Auto 11.6 % (2-11); Neutrophils Absolute Auto 2.4 x10*3/uL (2.0-8.3); Neutrophils Percent Auto 43.9 % (45-73); Platelet Count 559 X10*3/uL (160-400); Red Blood Count 3.35 X10*6/uL (4.20-5.50); Red Cell Distribution Width 15.9 % (11.0-16.0); White Blood Count 5.4 X10*3/uL (4.8-10.8)
[2024-10-08 16:44] LABS: Estimated Average Glucose 108 mg/dL; Hemoglobin A1c % 5.4 % (<6.0)
[2024-10-08 17:53] LABS: Anion Gap 11 (12-20); Blood Urea Nitrogen 12 mg/dL (9-16); Calcium 8.9 mg/dL (8.4-10.2); Carbon Dioxide 26 mmol/L (22-29); Chloride 102 mmol/L (96-108); Estimated Glomerular Filt Rate > 60; Glucose Random 71 mg/dL (60-115); Iron 137 mcg/dL (30-160); Percent Iron Saturation 55 % (15-50); Potassium 3.5 mmol/L (3.3-5.1); Sodium 135 mmol/L (135-145); Total Iron Binding Capacity 247 mcg/dL (228-428); Unsaturated Iron Binding 110 ug/dL
[2024-10-08 17:54] LABS: Ferritin 65 ng/mL (10-250)
== END 2024-10-08 14:03 | disposition home or self-care (01) ==
LOC: HO.HMGCLDS 14:02
PROVIDERS: PCP Internal Medicine; Visit Provider Internal Medicine
DX: J18.9 Pneumonia, unspecified organism (principal); E87.6 Hypokalemia; D50.0 Iron deficiency anemia secondary to blood loss (chronic); F17.210 Nicotine dependence, cigarettes, uncomplicated
CPT/HCPCS: 36415; 80048; 82728; 83036; 83540; 85025; 99212

== ENCOUNTER 2024-11-23 09:09 | Outpatient (AMB) | payer OTHER, SELFPAY ==
--- NOTE | 2024-11-23 09:10 | A.OFFPC_ITS ---
Vital Signs 11/23/24 09:11 Height 5 ft Weight 124 lb 4 oz BMI 24.3 BP 146/70 H Blood Pressure Location Rt brachial Position Sitting Pulse 97 Pulse Source Pulse Oximeter Pulse Oximetry (%) 99 Oxygen Delivery Method Room Air Intake Visit Reasons: 3M Follow UP Allergies albuterol [ALBUTEROL] Allergy (Unknown, Verified 11/23/24 09:11) HIVES, SHORTNESS OF BREATH, rash hydrocodone [From Vicodin] Allergy (Unknown, Verified 11/23/24 09:11) Hives, Shortness of Breath fluticasone [Flovent Diskus] Adverse Reaction (Unknown, Verified 11/23/24 09:11) shortness of breath and hives and agitation acetaminophen Adverse Reaction (Verified 11/23/24 09:11) Nose Bleed ibuprofen Adverse Reaction (Verified 11/23/24 09:11) Swelling Medication List - Last Reconciled 11/23/24 by Luca Payan MD aspirin 81 mg PO DAILY clotrimazole-betamethasone 1-0.05 % 1 appl topical BID 30 days famotidine 40 mg PO BEDTIME ferrous sulfate 324 mg PO BID 90 days hydrochlorothiazide 25 mg PO QAM 90 days nicotine (Nicoderm CQ) 1 patch transdermal Q24H simvastatin 80 mg PO BEDTIME Tobacco use date assessed: 11/23/24 Dental Screening Dental Screen Date: 11/23/24 Did you have a dental visit in the last 12 months?: Yes Did you have a dental problem in the last 6 months where you did not have access to dental care?: No Was dental information given to patient?: Patient has dentist HPI 3M Follow UP HPI Details History - The patient is a 64-year-old female pr esenting with a regular follow-up for Essential Hypertension management. - Blood pressure recorded at this visit is 146/70 mmHg, which indicates it remains elevated compared to the last recorded blood pressure of 130/70 mmHg in July. - The patient is currently taking hydroc hlorothiazide for blood pressure management but is experiencing frequent urination as a side effect, prompting a discussion about changing the medication. - The patient reports no home monitoring of her blood pressure and denies any associated symptoms such as headaches, blurring of vision, and tiredness. - In terms of anemia, the patient report s regular daily intake of an iron supplement (ferrous sulfate) but with a persistently low hemoglobin level at 10.1. Despite daily supplementation, there have been no improvements noted in her hemoglobin levels. - Hypercholesterolemia is managed with s imvastatin 80 mg daily, and the patient continues this medication regimen. - Labs from October 08 indicate potassiu m and other electrolytes are within normal limits, with a ferritin level of 65. - Heartburn is managed with famotidine a nd remains stable. - The patient smokes five cigarettes ariane ly, experiencing most difficulty with cessation during the evening due to inactivity. Medications - Hydrochlorothiazide: for management of hypertension. - Aspirin: for cardiovascular protection . - Famotidine: for gastrointestinal manag ement. - Ferrous sulfate: for anemia. - Simvastatin 80 mg: for hypercholestero lemia. Problem List - Essential Hypertension - Anemia - Hypercholesterolemia - Heartburn - Tobacco use disorder Patient Instructions - Begin taking atenolol 25 mg once daily for blood pressure management; discontinue hydrochlorothiazide. - Obtain a blood pressure monitor for [facility] use to regularly monitor blood pressure fluctuations. - Take iron supplements twice daily, but avoid taking them with food, preferably with orange juice for better absorption. - Initiate daily Vitamin D supplementati on as prescribed. - Schedule a nurse visit in three weeks to check blood pressure and monitor for medication side effects. - Plan to return in four months for foll ow-up and laboratory tests before the next appointment. - Increase activity during the evenings to cope with smoking cessation. - Consider substituting smoking with can dy when cravings occur until cessation plan improves. - Learn to make candied fruits at home a s a hobby to reduce idle time. Review of Systems General: No fever no chills neurological: No headaches no dizziness ear nose throat: No sore throat no hearing difficulty no ear pain cardiovascular: No syncope, no chest pain, no palpitations gastrointestinal: No nausea vomiting or diarrhea endocrine: No polyuria polydipsia no heat intolerance genitourinary: No dysuria skin: No new complaints Physical Exam general: No acute distress HEENT: No acute findings neck: Supple respiratory system: Able to talk in full sentences, no audible wheeze, no stridor, no shortness of breath cardiovascular: S1-S2 gastrointestinal: No pain extremities: No new findings 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 oriented x3 motor sensory intact skin: Normal turgor [facility] Medical History Tobacco abuse Chronic GERD Hypertension, essential Lipid disorder Surgical History History of esophagogastroduodenoscopy (EGD) Hx of colonoscopy H/O foot surgery History of right salpingo-oophorectomy History of tubal ligation History of tonsillectomy History of laparoscopic appendectomy H/O: hysterectomy Family History Mother Alzheimer's dementia Father Myocardial infarct Social History Household Members Other:: Housing: House Alcohol intake: never Patient Tobacco Use Status: Current everyday Tobacco user Tobacco use type: Cigarette e-Cigarette/Vaping Use: Never Used service: No Current occupational status: employed 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 Cognitive needs: No Hearing needs: No Vision needs: No Questionnaire Thrive Questionnaire Date Thrive assessed: 11/23/24 I am a: Patient What is your living situation today?: I have a steady place to live Within the past 12 months, did the food you bought not last and you didn't have the money to get more?: Never true Within the past 12 months, did you worry whether your food would run out before you got money to buy more?: Never true Do you have trouble paying for medicines?: No Do you have trouble getting transportation to medical appointments?: No Do you have trouble paying your heating and electricity bill?: No Do you have trouble taking care of your child, family member or friend?: No Do you have trouble with day-to-day activities such as bathing, preparing meals, shopping, managing finances, etc.?: No Are you currently unemployed and looking for a job?: No Are you interested in more education?: No Please select the resources that you would like help with: None Currently or been in a relationship where the following occur: No concerns reported THRIVE Score: 0 AUDIT C Alcohol Use Questionnaire (AUDIT-C) 1. How often do you have a drink containing alcohol?: 2-4 times a month 2. How many drinks containing alcohol do you have on a typical day when you are drinking?: 1 or 2 3. How often do you have six or more drinks on one occasion?: Never Total Score: 2 Score Reviewed/Action Taken: Yes RAUDEL-7 AMB Questionnaire RAUDEL-7 Date RAUDEL - 7 assessed: 08/17/24 Source: Developed by Drs. Venkat Sparrow, Cyn Douglass, Giovanni Diaz and colleagues, with an educational susan from [employer]. Physical exam (Primary Care) Vital Signs: Last Vital Signs Pulse 97 11/23/24 09:11 BP 146/70 H 11/23/24 09:11 Pulse Ox 99 11/23/24 09:11 Oxygen Delivery Method Room Air 11/23/24 09:11 BMI result Body Mass Index 24.3 Tobacco/Smoking Status: Tobacco use Status Tobacco use date assessed 11/23/24 11/23/24 09:12 Patient Tobacco Use Status Current everyday Tobacco 11/23/24 09:12 Tobacco use type Cigarette 11/23/24 09:12 e-Cigarette/Vaping Use Never Used 11/23/24 09:12 Thrive Assessment: Date of Thrive Assessment Date Thrive assessed 11/23/24 11/23/24 09:12 Currently or been in a relationship where the following occur: No concerns reported Coding Level of Care Code Est Pt Level 4 (38898) Complex EM visit Add On G2211 Diagnoses Hypertension, essential I10 Iron deficiency anemia due to chronic blood loss D50.0 Iron deficiency anemia type: chronic blood loss Cigarette nicotine dependence without complication F17.210 Nicotine product type: cigarettes Substance use status: uncomplicated Lipid disorder E78.9 Chronic GERD K21.9 Assessment & Plan Assessment & Plan (1) Hypertension, essential: Code(s): I10 - Essential (primary) hypertension Category: Medical (2) Iron deficiency anemia: Code(s): D50.9 - Iron deficiency anemia, unspecified Category: Medical Qualifiers: Iron deficiency anemia type: chronic blood loss Qualified Code(s): D50.0 - Iron deficiency anemia secondary to blood loss (chronic) (3) Nicotine dependence: Code(s): F17.200 - Nicotine dependence, unspecified, uncomplicated Category: Medical Qualifiers: Nicotine product type: cigarettes Substance use status: uncomplicated Qualified Code(s): F17.210 - Nicotine dependence, cigarettes, uncomplicated (4) Lipid disorder: Code(s): E78.9 - Disorder of lipoprotein metabolism, unspecified Category: Medical (5) Chronic GERD: Comment: omeprazole- not working Continue famotidine 40 at HS avoid culprits Code(s): K21.9 - Gastro-esophageal reflux disease without esophagitis Category: Medical Plan History - The patient is a 64-year-old female presenting with a regular follow-up for Essential Hypertension management. - Blood pressure recorded at this visit is 146/70 mmHg, which indicates it remains elevated compared to the last recorded blood pressure of 130/70 mmHg in July. - The patient is currently taking hydrochlorothiazide for blood pressure management but is experiencing frequent urination as a side effect, prompting a discussion about changing the medication. - The patient reports no home monitoring of her blood pressure and denies any associated symptoms such as headaches, blurring of vision, and tiredness. - In terms of anemia, the patient reports regular daily intake of an iron supplement (ferrous sulfate) but with a persistently low hemoglobin level at 10.1. Despite daily supplementation, there have been no improvements noted in her hemoglobin levels. - Hypercholesterolemia is managed with simvastatin 80 mg daily, and the patient continues this medication regimen. - Labs from October 08 indicate potassium and other electrolytes are within normal limits, with a ferritin level of 65. - Heartburn is managed with famotidine and remains stable. - The patient smokes five cigarettes daily, experiencing most difficulty with cessation during the evening due to inactivity. Medications - Hydrochlorothiazide: for management of hypertension. - Aspirin: for cardiovascular protection. - Famotidine: for gastrointestinal management. - Ferrous sulfate: for anemia. - Simvastatin 80 mg: for hypercholesterolemia. Problem List - Essential Hypertension - Anemia - Hypercholesterolemia - Heartburn - Tobacco use disorder - GERD is stable Patient Instructions - Begin taking atenolol 25 mg once daily for blood pressure management; discontinue hydrochlorothiazide. - Obtain a blood pressure monitor for home use to regularly monitor blood pressure fluctuations. - Take iron supplements twice daily, but avoid taking them with food, preferably with orange juice for better absorption. - Initiate daily Vitamin D supplementation as prescribed. - Schedule a nurse visit in three weeks to check blood pressure and monitor for medication side effects. - Plan to return in four months for follow-up and laboratory tests before the next appointment. - Increase activity during the evenings to cope with smoking cessation. - Consider substituting smoking with candy when cravings occur until cessation plan improves. - Learn to make candied fruits at home as a hobby to reduce idle time. Medications: New atenolol 25 mg PO DAILY 30 tabs 0RF [Blood pressure monitor] As directed 1 ea 0RF I10 - Essential (primary) hypertension cholecalciferol (vitamin D3) 25 mcg PO DAILY 90 days 90 caps 1RF Discontinued hydrochlorothiazide Discontinued Reason: Doctor's Order 25 mg PO QAM 90 days 90 tabs 1RF
[2024-11-23 09:11] VITALS: BP 146/70; PULSE 97; O2SAT 99; BMI 24.3
== END 2024-11-23 09:36 | disposition home or self-care (01) ==
LOC: HO.HMCC 09:10
PROVIDERS: PCP Internal Medicine; Visit Provider Internal Medicine
DX: I10 Essential (primary) hypertension (principal); D50.0 Iron deficiency anemia secondary to blood loss (chronic); F17.210 Nicotine dependence, cigarettes, uncomplicated; E78.9 Disorder of lipoprotein metabolism, unspecified; K21.9 Gastro-esophageal reflux disease without esophagitis

== ENCOUNTER → 2024-11-23 09:09 | Outpatient (BNVA) | payer OTHER, SELFPAY | PROVIDERS: PCP Internal Medicine; Visit Provider Internal Medicine | DX: I10 Essential (primary) hypertension (principal); D50.0 Iron deficiency anemia secondary to blood loss (chronic); E78.9 Disorder of lipoprotein metabolism, unspecified; K21.9 Gastro-esophageal reflux disease without esophagitis; F17.210 Nicotine dependence, cigarettes, uncomplicated; Z79.82 Long term (current) use of aspirin; Z79.899 Other long term (current) drug therapy | CPT/HCPCS: 99212 ==

== ENCOUNTER → 2024-12-22 09:44 | Outpatient (BNVA) | payer OTHER, SELFPAY | PROVIDERS: PCP Internal Medicine; Visit Provider Internal Medicine | DX: Z13.89 Encounter for screening for other disorder (principal) ==

== ENCOUNTER 2025-04-11 09:42 | Outpatient (AMB) | payer OTHER, SELFPAY ==
[2025-04-11 09:58] VITALS: BP 140/74; PULSE 110; TEMP 37.4; O2SAT 94
--- NOTE | 2025-04-11 09:58 | AM.OFFWIN_ITS ---
Intake Vital Signs 04/11/25 09:58 Height 5 ft BMI Reason not done Patient refused/unable BP 140/74 H Blood Pressure Location Lt brachial Position Sitting Pulse 110 H Pulse Source Pulse Oximeter Temp 99.3 F Temp Source Oral Pulse Oximetry (%) 94 Oxygen Delivery Method Room Air Intake Visit Reasons: EP cold symptoms Intake Note: pt is here for body ache, sinus congestion, coughing, rib cages hurt, no appetite, ongoing since friday Patient Tobacco Use Status: Current everyday Tobacco user Allergies albuterol (ALBUTEROL) Allergy (Unknown, Verified 04/11/25 09:59) HIVES, SHORTNESS OF BREATH, rash hydrocodone (From Vicodin) Allergy (Unknown, Verified 04/11/25 09:59) Hives, Shortness of Breath fluticasone (Flovent Diskus) Adverse Reaction (Unknown, Verified 04/11/25 09:59) shortness of breath and hives and agitation acetaminophen Adverse Reaction (Verified 04/11/25 09:59) Nose Bleed ibuprofen Adverse Reaction (Verified 04/11/25 09:59) Swelling Do you need a note to return to daycare/school/sports/work: Yes HPI HPI Comments History of Present Illness Details History - The patient is a 64-year-old female pr esenting with symptoms of congestion, cough, and shortness of breath. 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 - Reports coughing with sputum productio n, shortness of breath during coughing episodes, and associated headache. - Additional symptoms include runny nose , sore throat, and ear pain. - Has not used any icmt-sva-lgdrpds medi cations and has attempted to manage symptoms with rest. - History of asthma, typically flaring u p during winter months. - Smoker but has recently reduced smokin g, abstaining for five days. - She denies fever, chills, abd pain, n/ v/d. - States that food does not taste well. - She is concerned that she has covid or pneumonia or flu. Physical Exam General: Cooperative, healthy appearing, comfortable and no acute distress Orientation/consciousness: Patient oriented x3 Limitations: No limitations Head: Normal to inspection Ears: Hearing grossly normal bilaterally, external ears normal and TM's normal bilaterally Nose: Runny nose present Face and sinus: Sinuses nontender to palpation. Mouth: Normal oral and palatal mucosa present and moist mucous membranes noted. Throat: Sore throat present. Tonsils normal. Uvula is midline. Posterior oropharynx with erythema and no exudates. Eyes: Appearance normal, both eyes and all related structures Neck: Normal visual inspection, full ROM. No lymphadenopathy noted. Respiratory: Wheezing and rhonchi noted. Clear to auscultation bilaterally. Normal respiratory effort, able to speak in complete sentences. No respiratory distress, not tachypneic, no tripod positioning and no use of accessory muscles. Cardiovascular: Regular rate and rhythm. Normal S1 and S2 Skin: No rashes or lesions noted Patient was informed and verbally consented to the use of an ambient scribe for clinic note documentation during this visit [facility] Medical History Tobacco abuse Chronic GERD Hypertension, essential Lipid disorder Surgical History History of esophagogastroduodenoscopy (EGD) Hx of colonoscopy H/O foot surgery History of right salpingo-oophorectomy History of tubal ligation History of tonsillectomy History of laparoscopic appendectomy H/O: hysterectomy Family History Mother Alzheimer's dementia Father Myocardial infarct Social History Household Members Other:: Housing: House Alcohol intake: never Patient Tobacco Use Status: Current everyday Tobacco user Tobacco use type: Cigarette e-Cigarette/Vaping Use: Never Used service: No Current occupational status: employed 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 Cognitive needs: No Hearing needs: No Vision needs: No Review of Systems Const All systems reviewed & are unremarkable except as noted in HPI and below Physical Exam Vital Signs: Last Vital Signs Temp 99.3 F 04/11/25 09:58 Pulse 110 H 04/11/25 09:58 BP 140/74 H 04/11/25 09:58 Pulse Ox 94 04/11/25 09:58 Oxygen Delivery Method Room Air 04/11/25 09:58 Results Reviewed Results Reviewed: will review with CXR in the office Assessment & Plan Assessment & Plan (1) Cough: Code(s): R05.9 - Cough, unspecified Qualifiers: Cough type: acute Qualified Code(s): R05.1 - Acute cough Plan Most likely URI vs asthma exacerbation vs CAP vs covid vs flu vs RSV plan - A chest x-ray was ordered to rule out pneumonia. - A respiratory panel was conducted to identify potential viral infections such as influenza, COVID-19, or RSV. - Prescribed prednisone and an inhaler for symptom management. - Cough medicine was provided for home use. - Encouraged continued smoking cessation efforts. - will call her with the results of the CXR and treat accordingly - follow up with PCP Orders: Orders Resp Pathogen Panel - [facility] [place] Today J06.9 - Acute upper respiratory infection, unspecified XR chest 2V Today R05.9 - Cough, unspecified Medications: New prednisone 40 mg (2 x 20 mg) PO DAILY 10 tabs 0RF 5 days benzonatate 100 mg PO bid-tid PRN 21 caps 0RF Cough 7 days albuterol sulfate 90 mcg/actuation 2 puffs inhalation Q6H PRN 8.5 grams 0RF shortness of breath or wheezing or cough azithromycin For 250 mg dose pack: take 500 mg today (day 1), then 250 mg for 4 days (days 2-5) PO 6 tabs 0RF amoxicillin 1,000 mg (2 x 500 mg) PO Q12H 40 tabs 0RF 10 days Coding Level of Care Code Est Pt Level 4 (76743) Diagnoses Acute cough R05.1 Cough type: acute
== END 2025-04-11 11:05 | disposition home or self-care (01) ==
PROVIDERS: PCP Internal Medicine; Visit Provider Physician Assistant Medical
DX: R05.1 Acute cough (principal)

== ENCOUNTER 2025-04-11 09:42 | Outpatient (REF) | payer OTHER, SELFPAY ==
--- NOTE | ~2025-04-11 | XR_ITS ---
EXAMINATION: XR CHEST CLINICAL INFORMATION: R05.9 - Cough, unspecified COMPARISON: September 26, 2024 TECHNIQUE: 2 views of the chest were obtained. FINDINGS: Opacity in the lower half of the right lung has decreased since the prior. However, there is persistent opacity in the anterior medial right lower lobe and possibly right middle lobe. Lungs are clear otherwise. Heart size is within normal limits. XR/XR chest 2V IMPRESSION: Suspected right lower lobe pneumonia. There may also be involvement of the right middle lobe. Atelectasis is not ruled out. Electronically signed by: Keith Romano MD 04/11/2025 11:06 AM EDT
[2025-04-11 14:58] LABS: Chlamydia pneumoniae PCR Not Detected (Not Detect.); Coronavirus 229E PCR Not Detected (Not Detect.); Coronavirus HKU1 PCR Not Detected (Not Detect.); Coronavirus NL63 PCR Not Detected (Not Detect.); Coronavirus OC43 PCR Not Detected (Not Detect.); RSV PCR Not Detected (Not Detect.); Rhino/Enterovirus PCR Detected (Not Detect.)
[2025-04-11 15:09] LABS: Influenza A H1 PCR Not Detected (Not Detect.); Influenza A H1-2009 PCR Not Detected (Not Detect.); Influenza A H3 PCR Not Detected (Not Detect.); SARS-CoV-2 PCR Not Detected (Not Detect.)
== END 2025-04-11 09:43 | disposition home or self-care (01) ==
LOC: HO.HMGCX 09:42
PROVIDERS: PCP Internal Medicine; Visit Provider Physician Assistant Medical
DX: J06.9 Acute upper respiratory infection, unspecified (principal); R05.1 Acute cough; R06.02 Shortness of breath; J02.9 Acute pharyngitis, unspecified; R09.81 Nasal congestion; F17.210 Nicotine dependence, cigarettes, uncomplicated
CPT/HCPCS: 71046; 87633; 99212

== ENCOUNTER → 2025-04-11 10:57 | Outpatient (BNV) | payer OTHER, SELFPAY | PROVIDERS: PCP Internal Medicine; Visit Provider Radiology Diagnostic Radiology | DX: R05.9 Cough, unspecified (principal) | CPT/HCPCS: 71046 ==

== ENCOUNTER 2025-04-26 10:15 | Outpatient (REF) | payer OTHER, SELFPAY ==
[2025-04-26 13:21] LABS: Appearance Urine Clear; Glucose Urine UA Negative (Negative); PH 7.0 (5.0-9.0); Specific Gravity - Urine <= 1.005 (1.005-1.025); UMIC TRIGGER UACC YES
[2025-04-26 13:28] LABS: MANUAL DIFF FLAG NO
[2025-04-26 13:37] LABS: Hematocrit 38.5 % (37.0-47.0); Hemoglobin 12.6 g/dl (12.0-16.0); Imm Gran Abs Auto 0.02 X10*3/uL (0.00-0.03); Imm Gran Pct Auto 0.5 % (0.0-0.4); Lymphocytes Absolute Auto 1.5 X10*3/uL (1.2-4.9); Mean Corpuscular HGB Conc 32.7 g/dl (31.0-35.0); Mean Corpuscular Hemoglobin 32.1 pg (27.0-33.0); Mean Corpuscular Volume 98.0 fL (80.0-98.0); NRBC Abs Auto 0.000 X10*3/uL (0.0-0.012); NRBC Pct Auto 0.0 /100WBC (0.0-0.2); Platelet Count 370 X10*3/uL (160-400); Red Blood Count 3.93 X10*6/uL (4.20-5.50); White Blood Count 4.3 X10*3/uL (4.8-10.8)
[2025-04-26 13:59] LABS: Alanine Aminotransferase 29 U/L (0-31); Albumin Level 3.7 g/dL (3.5-5.0); Alkaline Phosphatase 90 U/L (39-117); Anion Gap 11 (12-20); Aspartate Amino Transferase 36 U/L (5-31); Blood Urea Nitrogen 12 mg/dL (9-16); Calcium 9.1 mg/dL (8.4-10.2); Carbon Dioxide 26 mmol/L (22-29); Chloride 106 mmol/L (96-108); Cholesterol 170 mg/dL (<200); Estimated Glomerular Filt Rate > 60; HDL Cholesterol 63 mg/dL (>40); Magnesium 2.1 mg/dL (1.6-2.6); Potassium 3.5 mmol/L (3.3-5.1); Sodium 139 mmol/L (135-145); Total Protein 6.8 g/dL (6.5-8.0); Triglycerides 89 mg/dL (<150)
[2025-04-26 14:07] LABS: Ferritin 127 ng/mL (10-250)
== END 2025-04-26 10:16 | disposition home or self-care (01) ==
LOC: HO.HMGCLDS 10:15
PROVIDERS: PCP Internal Medicine; Visit Provider Internal Medicine
DX: Z00.01 Encounter for general adult medical examination with abnormal findings (principal); I10 Essential (primary) hypertension; K21.9 Gastro-esophageal reflux disease without esophagitis; K64.8 Other hemorrhoids; E78.9 Disorder of lipoprotein metabolism, unspecified; Z72.0 Tobacco use; Z79.82 Long term (current) use of aspirin; Z79.899 Other long term (current) drug therapy; Z23 Encounter for immunization
CPT/HCPCS: 36415; 80053; 80061; 81001; 82728; 83735; 84443; 85025; 90471; 90656; 99396

== ENCOUNTER 2025-04-26 10:15 | Outpatient (AMB) | payer OTHER, SELFPAY ==
[2025-04-26 10:19] VITALS: BP 126/70; PULSE 87; O2SAT 96; BMI 23.8
--- NOTE | 2025-04-26 10:19 | MHC.PC.OV ---
Vital Signs 04/26/25 10:19 Height 5 ft Weight 122 lb BMI 23.8 BP 126/70 Blood Pressure Location Lt brachial Position Sitting Pulse 87 Pulse Source Pulse Oximeter Pulse Oximetry (%) 96 Intake Visit Reasons: Annual visit [employer] Required: No Accompanied by: Self / Same As Patient Allergies albuterol (ALBUTEROL) Allergy (Unknown, Verified 04/26/25 10:20) HIVES, SHORTNESS OF BREATH, rash hydrocodone (From Vicodin) Allergy (Unknown, Verified 04/26/25 10:20) Hives, Shortness of Breath fluticasone (Flovent Diskus) Adverse Reaction (Unknown, Verified 04/26/25 10:20) shortness of breath and hives and agitation acetaminophen Adverse Reaction (Verified 04/26/25 10:20) Nose Bleed ibuprofen Adverse Reaction (Verified 04/26/25 10:20) Swelling Medication List - Last Reconciled 04/26/25 by Luca Payan MD albuterol sulfate 90 mcg/actuation 2 puffs inhalation Q6H PRN amoxicillin 1,000 mg (2 x 500 mg) PO Q12H 10 days aspirin 81 mg PO DAILY atenolol 50 mg PO DAILY 90 days [Blood pressure monitor As directed] cholecalciferol (vitamin D3) (Vitamin D3) 25 mcg PO DAILY 90 days clotrimazole-betamethasone 1-0.05 % 1 appl topical BID 30 days famotidine 40 mg PO BEDTIME ferrous sulfate 324 mg PO BID 90 days nicotine (Nicoderm CQ) 1 patch transdermal Q24H simvastatin 80 mg PO BEDTIME 90 days Tobacco use date assessed: 11/23/24 Dental Screening Dental Screen Date: 11/23/24 HPI Annual visit HPI Details History of Present Illness The patient is a 64-year-old female presenting for a routine physical examination and blood tests. Anemia: - The patient was diagnosed with anemia as evidenced by a hemoglobin level of 10.1 in September. - a repeat blood test is planned to re-evaluate her status. - Previously sufficient iron levels, but anemia persists, suggesting non-iron deficiency-related anemia. 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 - Smokes half a pack of cigarettes daily, with no other family members smoking - Drinks beer on weekends or special occasions - Reports maintaining weight at 122 pounds, indicating a lifestyle that includes constant movement at work Health Maintenance - Follow-up blood test for anemia - Hemoglobin A1c level of 5.4 in September - Routine screenings including a mammogram in July - Colonoscopy evaluation thru Dr Kilpatrick in January 2022 - Recommended flu vaccination, to be administered during the visit Medications - Atenolol 50 mg for hypertension - Vitamin D supplement for deficiency - Famotidine 40 mg for gastric symptoms - Simvastatin 80 mg for hyperlipidemia - Previously taking ferrous sulfate (iron) tablets but instructed to stop Patient Instructions - Stop taking iron supplements until further notice - Continue taking prescribed medications (atenolol, vitamin D, famotidine, simvastatin) - Receive a flu vaccine during this visit - Monitor health and await blood test results - Follow up in 4 M for repeat evaluation and further assessments Review of Systems - General: No fever no chills - Neurological: No headaches no dizziness - Ear nose throat: No sore throat no hearing difficulty no ear pain - Cardiovascular: No syncope, no chest pain, no palpitations - Gastrointestinal: No nausea vomiting or diarrhea - Endocrine: No polyuria polydipsia no heat intolerance - Genitourinary: No dysuria - Skin: No new complaints Physical Exam General: Cooperative, healthy appearing, comfortable, no acute distress Orientation: Patient oriented x3 Limitations: none Head: Normal to inspection Ears: Within normal limit visually Nose: Normal external nose present Face and sinus: Normal facial exam Eyes: Appearance normal, extraocular movement intact pupils reactive Neck: Normal visual inspection and supple Respiratory: Normal respiratory effort and able to speak in complete sentences. Clear to auscultation, no stridor Cardiovascular: S1 and S2 RRR, blood pressure is 126/70 Breast exam Benign GI: Normal to inspection. Soft to palpation and nontender Skin: Turgor normal, no acute findings Neuro: Patient oriented x3, motor sensory intact, balance intact, tandem pass Extremities: Normal to inspection, ROM intact . [facility] Medical History Tobacco abuse Chronic GERD Hypertension, essential Lipid disorder Surgical History History of esophagogastroduodenoscopy (EGD) Hx of colonoscopy H/O foot surgery History of right salpingo-oophorectomy History of tubal ligation History of tonsillectomy History of laparoscopic appendectomy H/O: hysterectomy Family History Mother Alzheimer's dementia Father Myocardial infarct Social History Household Members Other:: Housing: House Alcohol intake: never Patient Tobacco Use Status: Current everyday Tobacco user Tobacco use type: Cigarette e-Cigarette/Vaping Use: Never Used service: No Current occupational status: employed 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 Cognitive needs: No Hearing needs: No Vision needs: No Questionnaire Thrive Questionnaire Date Thrive assessed: 08/14/24 I am a: Patient What is your living situation today?: I have a steady place to live Within the past 12 months, did the food you bought not last and you didn't have the money to get more?: Never true Within the past 12 months, did you worry whether your food would run out before you got money to buy more?: Never true Do you have trouble paying for medicines?: No Do you have trouble getting transportation to medical appointments?: No Do you have trouble paying your heating and electricity bill?: No Do you have trouble taking care of your child, family member or friend?: No Do you have trouble with day-to-day activities such as bathing, preparing meals, shopping, managing finances, etc.?: No Are you currently unemployed and looking for a job?: No Are you interested in more education?: No Please select the resources that you would like help with: None Currently or been in a relationship where the following occur: No concerns reported THRIVE Score: 0 RAUDEL-7 AMB Questionnaire RAUDEL-7 Date RAUDEL - 7 assessed: 08/17/24 Source: Developed by Drs. Venkat Sparrow, Cyn Douglass, Giovanni Diaz and colleagues, with an educational susan from [employer]. Physical exam (Primary Care) Vital Signs: Last Vital Signs Pulse 87 04/26/25 10:19 BP 126/70 04/26/25 10:19 Pulse Ox 96 04/26/25 10:19 BMI result Body Mass Index 23.8 Tobacco/Smoking Status: Tobacco use Status Tobacco use date assessed 11/23/24 04/26/25 10:22 Patient Tobacco Use Status Current everyday Tobacco 04/26/25 10:22 Tobacco use type Cigarette 04/26/25 10:22 e-Cigarette/Vaping Use Never Used 04/26/25 10:22 Are you ready to quit: No Tobacco cessation counseling provided: Yes Relapse Prevention: discussed the importance of a supportive environment and discussed dietary, exercise and/or lifestyle changes CPT code: 95777 - 4-10 Minutes Thrive Assessment: Date of Thrive Assessment Date Thrive assessed 08/14/24 04/26/25 10:22 Currently or been in a relationship where the following occur: No concerns reported Office Procedures Flu Questionnaire Does the patient have a severe egg allergy?: No Does the patient have severe life threatening allergies?: No Does the patient have a fever or illness today?: No Has the patient ever had Guillain-Antelope Syndrome?: No Has the patient ever had any past reaction to a flu shot?: No Immunizations Fluarix [id number] (PF) 45 mcg (15 mcg x 3)/0.5 mL IM syringe Performing Provider: Luca Payan MD Performing Location: [facility] [place] [facility] Administered by: Jeremy Montes CMA on 04/26/25 10:42 Dose Route Admin Location Dispensed Lot Number Expiration Date [facility] Surgery Attendant 0.5 mL IM Left Deltoid 0.5 mL [id number] 01/17/26 [id number] [id number] VIS Given Date VIS Provided VIS Publication Date 04/26/25 Single Vaccine 24 Eligibility Eligibility Date Funding Source Not [facility] Eligible 04/26/25 Private Coding Level of Care Code Est Pt Level 3 (85150) Est Pt Prev Care 40-64y(51481) Diagnoses Encounter for general adult medical examination with abnormal findings Z00.01 Hypertension, essential I10 Lipid disorder E78.9 Chronic GERD K21.9 Internal hemorrhoids K64.8 Tobacco abuse Z72.0 Additional Codes Vital Signs *Quality* - CPT code: 37617 - 4-10 Minutes ([id number]) Assessment & Plan Assessment & Plan (1) Encounter for general adult medical examination with abnormal findings: Code(s): Z00.01 - Encounter for general adult medical examination with abnormal findings Category: Medical (2) Hypertension, essential: Code(s): I10 - Essential (primary) hypertension Category: Medical (3) Lipid disorder: Code(s): E78.9 - Disorder of lipoprotein metabolism, unspecified Category: Medical (4) Chronic GERD: Comment: omeprazole- not working Continue famotidine 40 at HS avoid culprits Code(s): K21.9 - Gastro-esophageal reflux disease without esophagitis Category: Medical (5) Internal hemorrhoids: Code(s): K64.8 - Other hemorrhoids Category: Medical (6) Tobacco abuse: Code(s): Z72.0 - Tobacco use Category: Medical Plan History of Present Illness The patient is a 64-year-old female presenting for a routine physical examination and blood tests. Anemia: - The patient was diagnosed with anemia as evidenced by a hemoglobin level of 10.1 in September. - a repeat blood test is planned to re-evaluate her status. - Previously sufficient iron levels, but anemia persists, suggesting non-iron deficiency-related anemia. 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 - Smokes half a pack of cigarettes daily, with no other family members smoking - Drinks beer on weekends or special occasions - Reports maintaining weight at 122 pounds, indicating a lifestyle that includes constant movement at work Health Maintenance - Follow-up blood test for anemia - Hemoglobin A1c level of 5.4 in September - Routine screenings including a mammogram in July - Colonoscopy evaluation thru Dr Kilpatrick in January 2022 - Recommended flu vaccination, to be administered during the visit Medications - Atenolol 50 mg for hypertension - Vitamin D supplement for deficiency - Famotidine 40 mg for gastric symptoms - Simvastatin 80 mg for hyperlipidemia - Previously taking ferrous sulfate (iron) tablets but instructed to stop Patient Instructions - Stop taking iron supplements until further notice - Continue taking prescribed medications (atenolol, vitamin D, famotidine, simvastatin) - Receive a flu vaccine during this visit - Monitor health and await blood test results - Follow up in 4 M for repeat evaluation and further assessments Orders: Orders Comprehensive Economy. Panel Fast Today E78.9 - Disorder of lipoprotein metabolism, unspecified, I10 - Essential (primary) hypertension, K21.9 - Gastro-esophageal reflux disease without esophagitis, K64.8 - Other hemorrhoids, Z00.01 - Encounter for general adult medical examination with abnormal findings, Z72.0 - Tobacco use Lipid Panel Today E78.9 - Disorder of lipoprotein metabolism, unspecified, I10 - Essential (primary) hypertension, K21.9 - Gastro-esophageal reflux disease without esophagitis, K64.8 - Other hemorrhoids, Z00.01 - Encounter for general adult medical examination with abnormal findings, Z72.0 - Tobacco use UA CC w/rflx Micro + Cult Today E78.9 - Disorder of lipoprotein metabolism, unspecified, I10 - Essential (primary) hypertension, K21.9 - Gastro-esophageal reflux disease without esophagitis, K64.8 - Other hemorrhoids, Z00.01 - Encounter for general adult medical examination with abnormal findings, Z72.0 - Tobacco use Ferritin Today E78.9 - Disorder of lipoprotein metabolism, unspecified, I10 - Essential (primary) hypertension, K21.9 - Gastro-esophageal reflux disease without esophagitis, K64.8 - Other hemorrhoids, Z00.01 - Encounter for general adult medical examination with abnormal findings, Z72.0 - Tobacco use Influenza [id number] Immunization Today Z23 - Encounter for immunization Complete Blood Count Auto Diff Today E78.9 - Disorder of lipoprotein metabolism, unspecified, I10 - Essential (primary) hypertension, K21.9 - Gastro-esophageal reflux disease without esophagitis, K64.8 - Other hemorrhoids, Z00.01 - Encounter for general adult medical examination with abnormal findings, Z72.0 - Tobacco use TSH reflex Free T4 Today E78.9 - Disorder of lipoprotein metabolism, unspecified, I10 - Essential (primary) hypertension, K21.9 - Gastro-esophageal reflux disease without esophagitis, K64.8 - Other hemorrhoids, Z00.01 - Encounter for general adult medical examination with abnormal findings, Z72.0 - Tobacco use Magnesium Today E78.9 - Disorder of lipoprotein metabolism, unspecified, I10 - Essential (primary) hypertension, K21.9 - Gastro-esophageal reflux disease without esophagitis, K64.8 - Other hemorrhoids, Z00.01 - Encounter for general adult medical examination with abnormal findings, Z72.0 - Tobacco use
== END 2025-04-26 10:46 | disposition home or self-care (01) ==
LOC: HO.HMCC 10:16
PROVIDERS: PCP Internal Medicine; Visit Provider Internal Medicine
DX: Z00.00 Encounter for general adult medical examination without abnormal findings (principal); I10 Essential (primary) hypertension; E78.9 Disorder of lipoprotein metabolism, unspecified; K21.9 Gastro-esophageal reflux disease without esophagitis; K64.8 Other hemorrhoids; Z72.0 Tobacco use; Z23 Encounter for immunization

== ENCOUNTER 2025-06-13 13:49 | Outpatient (REF) | payer OTHER, SELFPAY ==
--- NOTE | ~2025-06-13 | US_ITS ---
EXAMINATION: US KIDNEY BILATERAL HISTORY: C64.2 - Malignant neoplasm of left kidney, except renal pelvis TECHNIQUE: Real-time grayscale ultrasound imaging of the kidneys was performed and images were reviewed. COMPARISON: Comparison is made with the prior examination dated 06/16/2023. Correlation is also made with an MRI of the abdomen without and with contrast dated 06/14/2024. FINDINGS: Right kidney: The right kidney measures 9.6 x 4.7 x 5.7 cm. Renal parenchymal echotexture and thickness are normal. There are no masses. There is no hydronephrosis or renal calculi. Left Kidney: The left kidney measures 8.3 x 5.5 x 4.9 cm. Renal parenchymal echotexture and thickness are normal. There is a 2.1 x 1.9 x 2.0 cm echogenic mass in the interpolar region. There is no hydronephrosis or renal calculi. US/US renal BI IMPRESSION: 2.1 x 1.9 x 2.0 cm echogenic mass in the interpolar region of the left kidney. By report, the patient is status post cryoablation of a renal mass. It is uncertain based on these images whether this represents the patient's prior ablated neoplasm. Follow-up renal protocol CT or MRI is recommended. Electronically signed by: Venkat Billingsley MD 06/13/2025 02:24 PM NELLY
== END 2025-06-13 13:50 | disposition home or self-care (01) ==
LOC: HO.HMGCX 13:49
PROVIDERS: PCP Internal Medicine; Visit Provider Urology
DX: C64.2 Malignant neoplasm of left kidney, except renal pelvis (principal)
CPT/HCPCS: 76775

== ENCOUNTER → 2025-06-13 13:50 | Outpatient (BNV) | payer OTHER, SELFPAY | PROVIDERS: PCP Internal Medicine; Visit Provider Radiology Diagnostic Radiology | DX: N28.89 Other specified disorders of kidney and ureter (principal) | CPT/HCPCS: 76775 ==

== ENCOUNTER 2025-06-22 10:39 | Outpatient (REF) | payer OTHER, SELFPAY | END 2025-06-22 10:40 | disposition home or self-care (01) | LOC: HO.LNP 10:39 | PROVIDERS: PCP Internal Medicine; Visit Provider Urology | DX: C64.2 Malignant neoplasm of left kidney, except renal pelvis (principal); N95.8 Other specified menopausal and perimenopausal disorders; R35.0 Frequency of micturition; R39.15 Urgency of urination | CPT/HCPCS: 51798; 81003; 88112; 99212 ==

== ENCOUNTER 2025-06-22 10:39 | Outpatient (AMB) | payer OTHER, SELFPAY ==
--- NOTE | 2025-06-22 11:00 | A.OFFVIS_ITS ---
Intake Visit Reasons: 1Y UA/Ultrasound(set) Intake Note: Reason for Visit: Ultrasound/UA Urology Meds: None Blood Thinners: Aspirin Imaging: Ultrasound 06/13 Labs: None Last PVR: None PVR: 1ml Patient reports increased urinary frequency that started 2 months ago Cdl Service Technician Required: No Accompanied by: Self / Same As Patient Allergies albuterol (ALBUTEROL) Allergy (Unknown, Verified 06/22/25 11:04) HIVES, SHORTNESS OF BREATH, rash hydrocodone (From Vicodin) Allergy (Unknown, Verified 06/22/25 11:04) Hives, Shortness of Breath fluticasone (Flovent Diskus) Adverse Reaction (Unknown, Verified 06/22/25 11:04) shortness of breath and hives and agitation acetaminophen Adverse Reaction (Verified 06/22/25 11:04) Nose Bleed ibuprofen Adverse Reaction (Verified 06/22/25 11:04) Swelling HPI Comments Details: Shagufta MARQUEZ is a very pleasant female.. They are a patient of Dr Payan. They are seen in the office today for the following urologic conditions. 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 They present for continued followup and management, , left side, renal cancer - Imaging NAD - continue every 12 months with ultrasound - repeat CT at 5 year. The renal mass was diagnosed during evaluation for, hematuria. Imaging included 11/[address] (computed tomography) scan of the abdomen/pelvis, showing class IV cyst(s), 2-3.0 cm in size, on the left, lower pole, nonenhancing 12/04 Biopsy renal carcinoma Grade II 10/05 , a CT (computed tomography) scan of the abdomen/pelvis, showing scarring, 03/07 , a renal ultrasound, scarring 10/06 , a renal ultrasound, scarring, 04/08 , a renal ultrasound, normal 10/07 , a CT (computed tomography) scan of the abdomen/pelvis left lower pole 2.5 cm scarred nodule, 04/09 CXR NAD - 10/08 CT scan scarring left kidney consistent with treatment effect - 04/10 CXR NAD, 11/09 renal ultrasound scarring - 05/11 CT with contrast 2.5 cc scarred lower pole nodule, otherwise normal - 05/12 ultrasound unchanged imaging - 05/13 MRI Prior treatment(s) included 03/06 Cryotherapy Renae Mcdonald Cr 0.9 Baseline. Staging of initial cancer T1a. The diagnosis was 12/04 biopsy renal cell carcinoma, Grade II. Planned therapeutic plan further surveillance with imaging and laboratory investigations appropriate for pathology findings and patient performance status PFSH Medical History Tobacco abuse Chronic GERD Hypertension, essential Lipid disorder Surgical History History of esophagogastroduodenoscopy (EGD) Hx of colonoscopy H/O foot surgery History of right salpingo-oophorectomy History of tubal ligation History of tonsillectomy History of laparoscopic appendectomy H/O: hysterectomy Family History Mother Alzheimer's dementia Father Myocardial infarct Social History Household Members Other:: Housing: House Alcohol intake: never Patient Tobacco Use Status: Current everyday Tobacco user Tobacco use type: Cigarette e-Cigarette/Vaping Use: Never Used service: No Current occupational status: employed 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 Cognitive needs: No Hearing needs: No Vision needs: No Review of Systems Const Denies chills and Denies fever(s) Card Reports no additional complaints and Denies syncope Resp Denies cough GI Denies abdominal pain and Denies heartburn Reports as per HPI and Denies change in libido Neuro Denies syncope Psych Denies change in libido Endo Denies change in libido Physical Exam Const General: cooperative, healthy appearing, comfortable and no acute distress Orientation/consciousness: patient oriented x3 HEENT Face and sinus: Yes normal facial exam Mouth: moist mucous membranes Neck Neck: Yes normal visual inspection, Yes full ROM and Yes trachea midline Chest Chest palpation & inspection: normal inspection of the chest Resp Effort & Inspection: normal respiratory effort, able to speak in complete sentences and no respiratory distress GI Inspection: Yes normal to inspection Back/Spine/Pelvis Cervical Spine: normal cervical lordosis Thoracic/Lumbar Spine: thoracic and lumbar spine normal to inspection Skin General skin exam: no rashes or lesions noted Neuro General: patient oriented x3, gait normal, tone normal and moves all extremities Extrem General: Yes normal to inspection and Yes capillary refill normal Office Procedures Post Void Residual Post Residual Void Post Void Residual (PVR): 1 [id number] Void Residual by ultrasound Results AMB Urinalysis, Automated UA Leukoctes 15 Ovidio/uL Last Edit by Tammi Urias [facility] on 06/22/25 11:13 UA Nitrite Negative Last Edit by Tammi Urias [facility] on 06/22/25 11:13 UA Urobilinogen 0.2 mg/dL Last Edit by Tammi Urias [facility] on 06/22/25 11:1 3 UA Protein 15 mg/dL Last Edit by Tammi Urias [facility] on 06/22/25 11:13 UA pH 6.5 Last Edit by Tammi Urias [facility] on 06/22/25 11:13 UA Blood 80 Izaiah/uL Last Edit by Tammi Urias [facility] on 06/22/25 11:13 UA Specific [place] 1.005 Last Edit by Tammi Urias [facility] on 06/22/25 11: 13 UA Ketone Negative Last Edit by Tammi Urias [facility] on 06/22/25 11:13 UA Bilirubin 0 mg/dL Last Edit by Tammi Urias [facility] on 06/22/25 11:13 UA Glucose 0 mg/dL Last Edit by Tammi Urias [facility] on 06/22/25 11:13 Results Reviewed Results Reviewed: Laboratory Last Values Urine pH (Auto) 6.5 06/22/25 11:04 Specific [place] (Auto) 1.005 06/22/25 11:04 Urine Protein (Auto) 15 mg/dL 06/22/25 11:04 Glucose (UA)(Auto) 0 mg/dL 06/22/25 11:04 Urine Ketones (Auto) Negative 06/22/25 11:04 Urine Blood (Auto) 80 [place]zaiah/uL 06/22/25 11:04 Urine Nitrite (Auto) Negative 06/22/25 11:04 Urine Bilirubin (Auto) 0 mg/dL 06/22/25 11:04 Urine Urobilinogen (Auto) 0.2 mg/dL 06/22/25 11:04 Leukocyte Esterase (Auto) 15 Ovidio/uL 06/22/25 11:04 Assessment & Plan Assessment & Plan (1) Renal cancer: Comment: Cryotherapy 2016 Code(s): C64.9 - Malignant neoplasm of unspecified kidney, except renal pelvis Category: Medical Qualifiers: Laterality: left Qualified Code(s): C64.2 - Malignant neoplasm of left kidney, except renal pelvis (2) Genitourinary syndrome of menopause: Code(s): N95.8 - Other specified menopausal and perimenopausal disorders Category: Medical Plan Six-month follow-up Orders: Orders AMB Urinalysis Automated Today Z13.9 - Encounter for screening, unspecified AMB Post Void Residual by ultrasound Today R35.0 - Frequency of micturition, R39.15 - Urgency of urination Urine Cytology Today R31.9 - Hematuria, unspecified Medications: New estradiol 0.01%(0.1mg/gram) vaginal 3XW apply pea sized amount to urethra 42.5 grams 1RF 30 days N95.8 - Other specified menopausal and perimenopausal disorders Patient Instructions: This note is constructed using voice recognition software. While every effort has been made to ensure accuracy adjuster piano action errors may have been included. Imaging studies, laboratory and physical exam results were discussed and reviewed in detail. No major barriers to patient understanding were identified. An opportunity to ask questions regarding the treatment plan was provided. All questions were answered. The patient expressed understanding and agreement with the above treatment plan. The patient is aware they should contact our office by phone for worsening of their current condition or the appearance of new urologic symptoms. Compliance is encouraged with any medications and followup testing that is ordered. It is a privilege to participate in the urologic care of your patient. If you have any questions or concerns regarding treatment for the above conditions, or other urologic issues, please do not hesitate to contact me. The office telephone contact is [phone]. Sincerely, Dr Ramirez Dodd MD, [facility] - Urology Compassionate Specialist Care for the Genitourinary System Coding Level of Care Code Est Pt Level 4 (42022) Diagnoses Malignant neoplasm of left kidney C64.2 Laterality: left Genitourinary syndrome of menopause N95.8 CPT Codes Post Residual Void - PVR CPT Code: 43720-Mpiy Void Residual by ultrasound ([id number])
== END 2025-06-22 11:36 | disposition home or self-care (01) ==
LOC: HO.HUSH 10:40
PROVIDERS: PCP Internal Medicine; Visit Provider Urology
DX: C64.2 Malignant neoplasm of left kidney, except renal pelvis (principal); N95.8 Other specified menopausal and perimenopausal disorders; Z13.9 Encounter for screening, unspecified
CPT/HCPCS: 99214